=== PATIENT | female | born 1930 | race Two or more races ===

== ENCOUNTER 2018-04-01 19:19 | Inpatient (IN) | payer MEDICARE, MEDICAID ==
--- NOTE | 2018-04-01 19:54 | ED Physician Chart ---
ED Chief Complaint/HPI - Patient Information Date Seen:: 04/01/18 Time Seen:: 19:20 Chief Complaint:: Agitation History of Present Illness:: onset x 2 days of agitation and aggressive behavior; no report of trauma, SIs, H /As, S/T, neck pain, cough, C/P, SOB, Abd. Pain, A/N/V/D/C, fever, chills, or urinary s/s Allergies:: Allergies Allergy/AdvReac Type Severity Reaction Status Date / Time No Known Allergies Allergy Verified 04/01/18 19:31 Vitals:: Vital Signs - 8 hr 04/01/18 19:20 Temp 98.4 F HR 82 RR 18 BP 184/66 O2 Sat % 97 Historian:: Patient, EMS Review:: Nurse's Note Reviewed, Old Chart Reviewed, EMS run form Reviewed ED Review of Systems - Review of Systems General/Constitutional: No fever, No chills, No weight loss, No weakness, No diaphoresis, No edema, No loss of appetite Skin: No skin lesions, No rash, No bruising Head: No headache, No light-headedness Eyes: No loss of vision, No pain, No diplopia ENT: No earache, No nasal drainage, No sore throat, No tinnitus Neck: No neck pain, No swelling, No thyromegaly, No stiffness, No mass noted Cardio Vascular: No chest pain, No palpitations, No PND, No orthopnea, No edema Pulmonary: No SOB, No cough, No sputum, No wheezing GI: No nausea, No vomiting, No diarrhea, No pain, No melena, No hematochezia, No constipation, No hematemesis G/U: No dysuria, No frequency, No hematuria, No nacturia Bronc Breaker: No vaginal discharge, No abnormal vaginal bleed, No contraction Musculoskeletal: No bone or joint pain, No back pain, No muscle pain Endocrine: No polyuria, No polydipsia Psychiatric: Prior psych history, Depression, Anxiety, No suicidal ideation, No homicidal ideation, No auditory hallucination, No visual hallucination Hematopoietic: No bruising, No lymphadenopathy Allergic/Immuno: No urticaria, No angioedema Neurological: No syncope, No focal symptoms, No weakness, No paresthesia, No headache, No seizure, No dizziness, Confusion, No vertigo ED Past Medical History - Past Medical History Obtainable: Yes Past Medical History: HTN, DM, Arthritis, Dementia Family History: Diabetes Melitus, HTN Social History: Non Smoker, No Alcohol, No Drug Use, , Care Facility Surgical History: None Psychiatricy History: Schizophrenia, Dementia Medication: Reviewed Family Medical History - Family Member Mother History Unknown: Yes ED Physical Exam - Physical Examination General/Constitutional: Awake, Well-developed, well-nourished, Alert, No distress, GCS 15, Non-toxic appearing, Ambulatory Head: Atraumatic Eyes: Lids, conjuctiva normal, PERRL, EOMI Skin: Nl inspection, No rash, No skin lesions, No ecchymosis, Well hydrated, No lymphadenopathy ENMT: External ears, nose nl, TM canals nl, Nasal exam nl, Lips, teeth, gums nl , Oropharynx nl, Tonsils nl Neck: Nontender, Full ROM w/o pain, No JVD, No nuchal rigidity, No bruit, No mass, No stridor Respiratory: Nl effort/Exclusion, Clear to Auscultation, No Wheeze/Rhonchi/Rales Cardio Vascular: RRR, No murmur, gallop, rubs, NL S1 S2, Carotid/Femoral/Distal pulses equal bilaterally GI: No tenderness/rebounding/guarding, No organomegaly, No hernia, Normal BS's, Nondistended, No mass/bruits, No McBurney tenderness Other GI comments:: no pulsatile masses : No CVA tenderness Extremities: No tenderness or effusion, Full ROM, normal strength in all extremities, No edema, Normal digits & nails Neuro/Psych: Alert/oriented, DTR's symmetric, Normal sensory exam, Normal motor strength, Judgement/insight normal, Mood normal, Normal gait, No focal deficits Other Neuro/Psych comments:: + Psychomotor Agitation; no SIs; Mood/Affect: Labile Misc: Normal back, No paraspinal tenderness ED Labs/Radiology/EKG Results - Lab Results Comments:: Reviewed - EKG Interpretations EKG Time:: 19:58 Rate & Rhythm: 75; NSR Comments:: LVH; non-specific st-t changes ED Septic Shock - . Is Septic Shock (SBP<90, OR Lactate>4 mmol\L) present?: No - <6hrs of presentation: Vital Signs: Vital Signs - 8 hr 04/01/18 19:20 Temp 98.4 F HR 82 RR 18 BP 184/66 O2 Sat % 97 ED Reassessment (Disposition) - Reassessment Reassessment Condition:: Improved - Diagnosis Diagnosis:: Dx: Agitation; Medical Clearance; Schizo-Affective Disorder; Dementia; Psychosis - Aftercare/Follow up Instructions Aftercare/Follow-Up Instructions:: Counseled pt regarding lab results/diagnosis & need follow up, Counseled pt & family regarding lab results/diagnosis & need follow up - Patient Disposition Discharge/Transfer:: Acute Care w/in this hosp Admitted to:: [facility] Condition at Disposition:: Stable, Improved
[2018-04-01 19:58] LABS: % BASOPHILS 0.9 % (0.0-2.0); % EOSINOPHILS 4.9 % (0.0-5.0); % LYMPHOCYTES 25.4 % (20.0-50.0); % MONOCYTES 7.6 % (2.0-10.0); % NEUTROPHILS 61.2 % (40.0-80.0); EOSINOPHILE ABSOLUTE 0.3 Th/cmm (0.1-0.4); HEMATOCRIT 41.3 % (41.0-60); HEMOGLOBIN 13.6 gm/dL (12-16); LYMPHOCYTE ABSOLUTE 1.4 Th/cmm (1.5-3.0); MEAN CELL VOLUME 94.7 fl (81-100); MEAN CORPUSCULAR HEMOGLOBIN 31.2 pg (27.0-31.0); MEAN CORPUSCULAR HGB CONC 32.9 pg (28.0-36.0); MEAN PLATELET VOLUME 8.5 fl; MONOCYTE ABSOLUTE 0.4 Th/cmm (0.3-1.0); NEUTROPHILE ABSOLUTE 3.4 Th/cmm (1.8-8.0); PLATELET COUNT 172 Th/cmm (150-400); RED BLOOD COUNT 4.36 Mil/cmm (3.80-5.20); RED CELL DISTRIBUTION WIDTH 13.5 % (11.5-20.0); WHITE BLOOD COUNT 5.5 Th/cmm (4.8-10.8)
[2018-04-01 20:17] LABS: ACETAMINOPHEN < 10.0 ug/mL (10.0-30.0); ALB/GLOB RATIO 1.4 (1.0-1.8); ALBUMIN 4.3 gm/dL (3.7-5.3); ALKALINE PHOSPHATASE 65 U/L (34-104); ANION GAP 14.2 (7.0-16.0); BILIRUBIN,TOTAL 0.7 mg/dL (0.3-1.0); BUN - UREA NITROGEN 22 mg/dL (7-25); CALCIUM SERUM 10.2 mg/dL (8.6-10.3); CARBON DIOXIDE 22.3 mEq/L (21.0-31.0); CHLORIDE 104 mEq/L (98-107); CHOLESTEROL 185 mg/dL (<200); CREATININE - SERUM 0.7 mg/dL (0.6-1.2); GLUCOSE 111 mg/dL (70-105); HDL -HIGH DENSITY LIPOPROTEIN 48 mg/dL (23-92); POTASSIUM SERUM 3.5 mEq/L (3.5-5.1); SALICYLATES (ASPIRIN) < 25.0 mg/L (30.0-100.0); SGOT 16 U/L (13-39); SGPT/ALT 8 U/L (7-52); SODIUM SERUM 137 mEq/L (136-145); TOTAL PROTEIN,SERUM 7.4 gm/dL (6.0-8.3); TRIGLYCERIDES 54 mg/dL (<150)
[2018-04-01] MEDS ORDERED: Haloperidol Lactate 5 mg/mL 1mL Vial ONE (21:16)
[2018-04-01] MEDS ORDERED: Haloperidol Lactate 5 mg/mL 1mL Vial IM STA (21:34)
[2018-04-01 22:13] VITALS: BP 150/86
[2018-04-01] MEDS ORDERED: Magnesium Hydroxide (MOM) 30 mL UDC PO PRN (22:13)
[2018-04-02] MEDS ORDERED: Guaifenesin/Dextromethorphan 100mg-10mg/5mL Sugar Free 118mL Bottle PO PRN (03:27)
[2018-04-02] MEDS: Polyvinyl Alcohol Ophth Soln 15 mL Bottle EACH EYE SCH ×2 (08:15→17:31)
[2018-04-02] MEDS: Calcium Carb/Vit D 500 mg/200 U Tab PO SCH ×2 (08:15→17:31)
--- NOTE | 2018-04-02 12:06 | History & Physical ---
ADMIT DATE: 04/01/2018 IDENTIFYING INFORMATION: The patient is an 87-year-old female. CHIEF COMPLAINT: No answer. HISTORY OF PRESENT ILLNESS: The patient was admitted because of agitation and psychosis. The patient herself was a very poor historian. She was unable to participate in meaningful conversation. Apparently yesterday, she was extremely agitated, had to be given emergency medication. So today, she is more on the sedated side. I called her daughter, Lucrecia at [phone] to get more information. However, she left her message with my number. She was not available. PAST PSYCHIATRIC HISTORY: Psychosis. The patient on paliperidone. MEDICAL HISTORY: The patient is unable to give any information. ALLERGIES: The patient has no known drug allergies. MEDICATIONS: She is on paliperidone, she is demented. She is on Aricept 10 mg at bedtime, guaifenesin every 6 hours, Lasix 20 mg daily, benazepril for hypertension 5 mg twice a day, yesterday she was given Haldol, Ativan by Dr. Steven Casey. FAMILY AND SOCIAL HISTORY: No information is available as the patient is unable to give information regarding family history. MENTAL STATUS EXAMINATION: The patient is appropriately dressed, not well groomed. She was somewhat sedated, unable to participate in a meaningful conversation or make safe plan for self-care. She apparently was agitated, had to be medicated, continues to have poor insight. Unable to make safe plan for self-care, unpredictable, impulsive, needing redirection, demented, confused, unable to answer any question regarding orientation, hallucinations, sleep and appetite. Her insight and judgment is impaired. IMPRESSION: AXIS I: Psychosis, not otherwise specified, dementia. MEDICAL DIAGNOSIS: As per medical doctor. PLAN: The patient will be started back on medication. We will do group therapy, milieu therapy, and individual therapy. ESTIMATED LENGTH OF STAY: 3-7 days. DISCHARGE CRITERIA: Decreasing psychosis, agitation, after discharge ____. JOB# [id number]
--- NOTE | 2018-04-02 22:58 | History & Physical ---
ADMIT DATE: 04/02/2018 CHIEF COMPLAINT: Agitation. HISTORY OF PRESENT ILLNESS: An 87-year-old female presents from assisted after having increased agitation and yelling. The patient was evaluated in the Emergency Room, medically cleared and sent for further psychiatric evaluation. The patient is a poor historian. History is taken from records. The patient appears in no distress or pain. PAST MEDICAL HISTORY: The patient has history of dementia, diabetes mellitus, hypertension, depression, gout, hyperlipidemia, and osteoporosis. MEDICATIONS: The patient takes alendronate, allopurinol, Aricept, benazepril, Lasix, paliperidone, simvastatin. ALLERGIES: The patient has no known drug allergies. SOCIAL HISTORY: No tobacco, alcohol, or illicit drug use. The patient is a resident of a assisted. FAMILY HISTORY: Noncontributory. REVIEW OF SYSTEMS: IMMUNOLOGIC: No recurrent infection. CARDIOVASCULAR: No heart disease. The patient does have hypertension. GASTROINTESTINAL: No nausea, vomiting, or diarrhea. ENDOCRINE: The patient has no known diabetes or thyroid disorder. NEUROLOGIC: The patient has dementia. No seizure or stroke. HEMATOLOGIC: No bleeding or clotting disorder. PHYSICAL EXAMINATION: GENERAL: The patient is resting comfortably, appears in no distress. VITAL SIGNS: Temperature 97.8, pulse 68, respirations 20, blood pressure 135/56. HEENT: Pupils equally round, anicteric sclerae. NECK: Supple. No JVD, mass, or bruit. LUNGS: Clear to auscultation. HEART: S1, S2, regular rate and rhythm. ABDOMEN: Soft, nontender, positive bowel sounds. EXTREMITIES: No clubbing, cyanosis, or edema. NEUROLOGIC: Does not cooperate with following commands. IMPRESSION: 1. Mental health disorder. 2. Depression. 3. Hypertension. 4. Diabetes mellitus. 5. Gout. 6. Osteoporosis. 7. Hyperlipidemia. PLAN: The patient has been admitted to Geropsych Unit. We will continue patient's usual medications and continue to monitor vitals. The patient has no apparent active medical problems. We will continue to monitor while in facility. JOB# [id number]
[2018-04-03] MEDS: Polyvinyl Alcohol Ophth Soln 15 mL Bottle EACH EYE SCH ×3 (08:56→16:56)
[2018-04-03] MEDS: Calcium Carb/Vit D 500 mg/200 U Tab PO SCH ×3 (08:56→16:23)
[2018-04-03] MEDS ORDERED: PALIPERIDONE 1.5 MG PO SCH (09:00)
--- NOTE | 2018-04-03 20:35 | General Progress Note ---
Subjective - Review of Systems Service Date: 04/03/18 Subjective: resting comfortably no complaints Objective - Results Result Diagrams: 04/01/18 19:45 04/01/18 19:45 Recent Labs: Laboratory Last Values WBC 5.5 Th/cmm (4.8-10.8) 04/01/18 19:45 RBC 4.36 Mil/cmm (3.80-5.20) 04/01/18 19:45 Hgb 13.6 gm/dL (12-16) 04/01/18 19:45 Hct 41.3 % (41.0-60) 04/01/18 19:45 MCV 94.7 fl (81-100) 04/01/18 19:45 MCH 31.2 pg (27.0-31.0) H 04/01/18 19:45 MCHC Differential 32.9 pg (28.0-36.0) 04/01/18 19:45 RDW 13.5 % (11.5-20.0) 04/01/18 19:45 Plt Count 172 Th/cmm (150-400) 04/01/18 19:45 MPV 8.5 fl 04/01/18 19:45 Neutrophils % 61.2 % (40.0-80.0) 04/01/18 19:45 Lymphocytes % 25.4 % (20.0-50.0) 04/01/18 19:45 Monocytes % 7.6 % (2.0-10.0) 04/01/18 19:45 Eosinophils % 4.9 % (0.0-5.0) 04/01/18 19:45 Basophils % 0.9 % (0.0-2.0) 04/01/18 19:45 Sodium 137 mEq/L (136-145) 04/01/18 19:45 Potassium 3.5 mEq/L (3.5-5.1) 04/01/18 19:45 Chloride 104 mEq/L (98-107) 04/01/18 19:45 Carbon Dioxide 22.3 mEq/L (21.0-31.0) 04/01/18 19:45 Anion Gap 14.2 (7.0-16.0) 04/01/18 19:45 BUN 22 mg/dL (7-25) 04/01/18 19:45 Creatinine 0.7 mg/dL (0.6-1.2) 04/01/18 19:45 Est GFR ( Amer) TNP 04/01/18 19:45 Est GFR (Non-Af Amer) TNP 04/01/18 19:45 BUN/Creatinine Ratio 31.4 04/01/18 19:45 Glucose 111 mg/dL (70-105) H 04/01/18 19:45 Calcium 10.2 mg/dL (8.6-10.3) 04/01/18 19:45 Total Bilirubin 0.7 mg/dL (0.3-1.0) 04/01/18 19:45 AST 16 U/L (13-39) 04/01/18 19:45 ALT 8 U/L (7-52) 04/01/18 19:45 Alkaline Phosphatase 65 U/L (34-104) 04/01/18 19:45 Troponin I 0.14 ng/mL (0.01-0.05) H* 04/01/18 19:45 Total Protein 7.4 gm/dL (6.0-8.3) 04/01/18 19:45 Albumin 4.3 gm/dL (3.7-5.3) 04/01/18 19:45 Globulin 3.1 gm/dL 04/01/18 19:45 Albumin/Globulin Ratio 1.4 (1.0-1.8) 04/01/18 19:45 Triglycerides 54 mg/dL (<150) 04/01/18 19:45 Cholesterol 185 mg/dL (<200) 04/01/18 19:45 LDL Cholesterol Direct 121 mg/dL (75-193) 04/01/18 19:45 HDL Cholesterol 48 mg/dL (23-92) 04/01/18 19:45 TSH 0.23 uIU/ml (0.34-5.60) L 04/01/18 19:45 Salicylates < 25.0 mg/L (30.0-100.0) L 04/01/18 19:45 Acetaminophen < 10.0 ug/mL (10.0-30.0) L 04/01/18 19:45 Ethyl Alcohol < 10 mg/dL (0-10) 04/01/18 19:45 - Physical Exam Vitals and I&O: Vital Signs Temp 97.9 F 04/03/18 02:47 Pulse 64 04/03/18 02:47 Resp 18 04/03/18 02:47 BP 130/62 04/03/18 02:47 Pulse Ox 98 04/03/18 02:47 Intake & Output 04/03/18 04/03/18 04/04/18 06:59 18:59 06:59 Intake Total 500 1200 Balance 500 1200 Intake: Oral 500 1200 Other: # Voids 4 # Bowel Movements 0 1 Active Medications: Current Medications Acetaminophen (Tylenol) 650 mg PO Q6HR PRN PRN Reason: Pain or Fever >101 Stop: 06/01/18 03:26 Alendronate Sodium (Fosamax) 70 mg PO Q7D [facility] Stop: 06/02/18 06:29 Last Admin: 04/03/18 07:02 Dose: 70 mg Allopurinol (Zyloprim) 300 mg PO DAILY [facility] Stop: 06/01/18 08:59 Last Admin: 04/03/18 09:00 Dose: 300 mg Aripiprazole (Abilify) 2.5 mg PO DAILY [facility]; Protocol Stop: 06/02/18 16:59 Last Admin: 04/03/18 16:54 Dose: 2.5 mg Artificial Tears (Artificial Tears Ophth Soln) 1 drop EACH EYE BID [facility] Stop: 06/01/18 08:59 Last Admin: 04/03/18 16:56 Dose: 1 drop Aspirin (Ecotrin) 81 mg PO DAILY [facility] Stop: 06/01/18 08:59 Last Admin: 04/03/18 09:06 Dose: 81 mg Benazepril HCl (Lotensin) 5 mg PO BID [facility] Stop: 06/01/18 08:59 Last Admin: 04/03/18 16:55 Dose: Not Given Calcium/Vitamin D (Oscal W/Vitamin D) 1 tab PO BID [facility] Stop: 06/01/18 08:59 Last Admin: 04/03/18 16:23 Dose: 1 tab Docusate Sodium (Colace) 100 mg PO BID [facility] Stop: 06/01/18 08:59 Last Admin: 04/03/18 16:23 Dose: 100 mg Donepezil HCl (Aricept) 10 mg PO HS [facility] Stop: 06/01/18 20:59 Last Admin: 04/02/18 21:39 Dose: 10 mg Furosemide (Lasix) 20 mg PO DAILY [facility] Stop: 06/01/18 08:59 Last Admin: 04/03/18 08:56 Dose: Not Given Guaifenesin/Dextromethorphan (Diabetic Tussin Dm Sugar Free) 5 ml PO Q6H PRN PRN Reason: Cough Stop: 06/01/18 03:26 Lorazepam (Ativan) 0.5 mg PO Q4HR PRN; Protocol PRN Reason: Anxiety Stop: 05/01/18 22:12 Magnesium Hydroxide (Milk Of Magnesia) 30 ml PO HS PRN PRN Reason: Constipation Methimazole (Tapazole) 5 mg PO QDAC [facility] Stop: 06/01/18 07:29 Last Admin: 04/03/18 07:02 Dose: 5 mg Miscellaneous (Paliperidone [Paliperidone Er]) 1.5 mg PO DAILY [facility] Stop: 06/02/18 08:59 Simvastatin (Zocor) 20 mg PO HS [facility]; Protocol Stop: 06/01/18 20:59 Last Admin: 04/02/18 21:39 Dose: 20 mg General: No acute distress HEENT: Atraumatic, PERRLA Neck: Supple, JVD, Thyromegaly Cardiovascular: Regular rate, Normal S1, Normal S2 Lungs: Clear to auscultation Abdomen: Bowel sounds, Soft Assessment/Plan - Assessment Assessment: depression DM HTN hyperlipidemia - Plan Plan: continue current treatment
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
[2018-04-04] MEDS: Polyvinyl Alcohol Ophth Soln 15 mL Bottle EACH EYE SCH ×2 (08:34→18:22)
[2018-04-04] MEDS: Calcium Carb/Vit D 500 mg/200 U Tab PO SCH ×2 (08:39→18:22)
--- NOTE | 2018-04-04 11:01 | Progress Notes ---
DATE: 04/04/2018 Dr. Vasquez covering for Dr. Ratliff. SUBJECTIVE: Chart reviewed and the patient interviewed. Also discussed the patient's condition with the staff and reviewed records and labs. The patient is still confused and still have episodes of agitation and irritability, but seems to be less than before. Also, easier to redirect her. The patient also is compliant with taking her medications with no side effects of medications. ASSESSMENT: The patient is less agitated and less psychotic. TREATMENT PLAN: Continue to monitor her behavior and her condition closely. Also, continue adjusting psychotropic medications and follow up. JOB# [id number]
--- NOTE | 2018-04-04 13:44 | General Progress Note ---
Subjective - Review of Systems Service Date: 04/04/18 Subjective: resting comfortably no complaints Objective - Results Result Diagrams: 04/01/18 19:45 04/01/18 19:45 Recent Labs: Laboratory Last Values WBC 5.5 Th/cmm (4.8-10.8) 04/01/18 19:45 RBC 4.36 Mil/cmm (3.80-5.20) 04/01/18 19:45 Hgb 13.6 gm/dL (12-16) 04/01/18 19:45 Hct 41.3 % (41.0-60) 04/01/18 19:45 MCV 94.7 fl (81-100) 04/01/18 19:45 MCH 31.2 pg (27.0-31.0) H 04/01/18 19:45 MCHC Differential 32.9 pg (28.0-36.0) 04/01/18 19:45 RDW 13.5 % (11.5-20.0) 04/01/18 19:45 Plt Count 172 Th/cmm (150-400) 04/01/18 19:45 MPV 8.5 fl 04/01/18 19:45 Neutrophils % 61.2 % (40.0-80.0) 04/01/18 19:45 Lymphocytes % 25.4 % (20.0-50.0) 04/01/18 19:45 Monocytes % 7.6 % (2.0-10.0) 04/01/18 19:45 Eosinophils % 4.9 % (0.0-5.0) 04/01/18 19:45 Basophils % 0.9 % (0.0-2.0) 04/01/18 19:45 Sodium 137 mEq/L (136-145) 04/01/18 19:45 Potassium 3.5 mEq/L (3.5-5.1) 04/01/18 19:45 Chloride 104 mEq/L (98-107) 04/01/18 19:45 Carbon Dioxide 22.3 mEq/L (21.0-31.0) 04/01/18 19:45 Anion Gap 14.2 (7.0-16.0) 04/01/18 19:45 BUN 22 mg/dL (7-25) 04/01/18 19:45 Creatinine 0.7 mg/dL (0.6-1.2) 04/01/18 19:45 Est GFR ( Amer) TNP 04/01/18 19:45 Est GFR (Non-Af Amer) TNP 04/01/18 19:45 BUN/Creatinine Ratio 31.4 04/01/18 19:45 Glucose 111 mg/dL (70-105) H 04/01/18 19:45 Calcium 10.2 mg/dL (8.6-10.3) 04/01/18 19:45 Total Bilirubin 0.7 mg/dL (0.3-1.0) 04/01/18 19:45 AST 16 U/L (13-39) 04/01/18 19:45 ALT 8 U/L (7-52) 04/01/18 19:45 Alkaline Phosphatase 65 U/L (34-104) 04/01/18 19:45 Troponin I 0.14 ng/mL (0.01-0.05) H* 04/01/18 19:45 Total Protein 7.4 gm/dL (6.0-8.3) 04/01/18 19:45 Albumin 4.3 gm/dL (3.7-5.3) 04/01/18 19:45 Globulin 3.1 gm/dL 04/01/18 19:45 Albumin/Globulin Ratio 1.4 (1.0-1.8) 04/01/18 19:45 Triglycerides 54 mg/dL (<150) 04/01/18 19:45 Cholesterol 185 mg/dL (<200) 04/01/18 19:45 LDL Cholesterol Direct 121 mg/dL (75-193) 04/01/18 19:45 HDL Cholesterol 48 mg/dL (23-92) 04/01/18 19:45 TSH 0.23 uIU/ml (0.34-5.60) L 04/01/18 19:45 Salicylates < 25.0 mg/L (30.0-100.0) L 04/01/18 19:45 Acetaminophen < 10.0 ug/mL (10.0-30.0) L 04/01/18 19:45 Ethyl Alcohol < 10 mg/dL (0-10) 04/01/18 19:45 - Physical Exam Vitals and I&O: Vital Signs Temp 97.6 F 04/04/18 06:45 Pulse 74 04/04/18 08:37 Resp 18 04/04/18 06:45 BP 138/67 04/04/18 08:40 Pulse Ox 94 04/04/18 06:45 Intake & Output 04/03/18 04/04/18 04/04/18 18:59 06:59 18:59 Intake Total 1200 Balance 1200 Intake: Oral 1200 Other: # Bowel Movements 1 Active Medications: Current Medications Acetaminophen (Tylenol) 650 mg PO Q6HR PRN PRN Reason: Pain or Fever >101 Stop: 06/01/18 03:26 Alendronate Sodium (Fosamax) 70 mg PO Q7D [facility] Stop: 06/02/18 06:29 Last Admin: 04/03/18 07:02 Dose: 70 mg Allopurinol (Zyloprim) 300 mg PO DAILY [facility] Stop: 06/01/18 08:59 Last Admin: 04/04/18 08:35 Dose: 300 mg Aripiprazole (Abilify) 2.5 mg PO DAILY [facility]; Protocol Stop: 06/02/18 16:59 Last Admin: 04/04/18 08:35 Dose: 2.5 mg Artificial Tears (Artificial Tears Ophth Soln) 1 drop EACH EYE BID [facility] Stop: 06/01/18 08:59 Last Admin: 04/04/18 08:34 Dose: 1 drop Aspirin (Ecotrin) 81 mg PO DAILY [facility] Stop: 06/01/18 08:59 Last Admin: 04/04/18 08:35 Dose: 81 mg Benazepril HCl (Lotensin) 5 mg PO BID [facility] Stop: 06/01/18 08:59 Last Admin: 04/04/18 08:37 Dose: 2.5 mg Calcium/Vitamin D (Oscal W/Vitamin D) 1 tab PO BID [facility] Stop: 06/01/18 08:59 Last Admin: 04/04/18 08:39 Dose: 1 tab Docusate Sodium (Colace) 100 mg PO BID [facility] Stop: 06/01/18 08:59 Last Admin: 04/04/18 08:34 Dose: 100 mg Donepezil HCl (Aricept) 10 mg PO HS [facility] Stop: 06/01/18 20:59 Last Admin: 04/03/18 21:07 Dose: 10 mg Furosemide (Lasix) 20 mg PO DAILY [facility] Stop: 06/01/18 08:59 Last Admin: 04/04/18 08:40 Dose: 20 mg Guaifenesin/Dextromethorphan (Diabetic Tussin Dm Sugar Free) 5 ml PO Q6H PRN PRN Reason: Cough Stop: 06/01/18 03:26 Lorazepam (Ativan) 0.5 mg PO Q4HR PRN; Protocol PRN Reason: Anxiety Stop: 05/01/18 22:12 Magnesium Hydroxide (Milk Of Magnesia) 30 ml PO HS PRN PRN Reason: Constipation Methimazole (Tapazole) 5 mg PO QDAC [facility] Stop: 06/01/18 07:29 Last Admin: 04/04/18 06:51 Dose: 5 mg Miscellaneous (Paliperidone [Paliperidone Er]) 1.5 mg PO DAILY [facility] Stop: 06/02/18 08:59 Simvastatin (Zocor) 20 mg PO HS [facility]; Protocol Stop: 06/01/18 20:59 Last Admin: 04/03/18 21:07 Dose: 20 mg General: No acute distress HEENT: Atraumatic, PERRLA Neck: Supple, JVD, Thyromegaly Cardiovascular: Regular rate, Normal S1, Normal S2 Lungs: Clear to auscultation Abdomen: Bowel sounds, Soft Assessment/Plan - Assessment Assessment: depression DM HTN hyperlipidemia - Plan Plan: continue current treatment
[2018-04-05] MEDS: Calcium Carb/Vit D 500 mg/200 U Tab PO SCH ×2 (08:29→16:40)
[2018-04-05] MEDS: Polyvinyl Alcohol Ophth Soln 15 mL Bottle EACH EYE SCH ×2 (08:38→16:41)
--- NOTE | 2018-04-05 17:29 | General Progress Note ---
Subjective - Review of Systems Service Date: 04/05/18 Subjective: resting comfortably no complaints Objective - Results Result Diagrams: 04/01/18 19:45 04/01/18 19:45 Recent Labs: Laboratory Last Values WBC 5.5 Th/cmm (4.8-10.8) 04/01/18 19:45 RBC 4.36 Mil/cmm (3.80-5.20) 04/01/18 19:45 Hgb 13.6 gm/dL (12-16) 04/01/18 19:45 Hct 41.3 % (41.0-60) 04/01/18 19:45 MCV 94.7 fl (81-100) 04/01/18 19:45 MCH 31.2 pg (27.0-31.0) H 04/01/18 19:45 MCHC Differential 32.9 pg (28.0-36.0) 04/01/18 19:45 RDW 13.5 % (11.5-20.0) 04/01/18 19:45 Plt Count 172 Th/cmm (150-400) 04/01/18 19:45 MPV 8.5 fl 04/01/18 19:45 Neutrophils % 61.2 % (40.0-80.0) 04/01/18 19:45 Lymphocytes % 25.4 % (20.0-50.0) 04/01/18 19:45 Monocytes % 7.6 % (2.0-10.0) 04/01/18 19:45 Eosinophils % 4.9 % (0.0-5.0) 04/01/18 19:45 Basophils % 0.9 % (0.0-2.0) 04/01/18 19:45 Sodium 137 mEq/L (136-145) 04/01/18 19:45 Potassium 3.5 mEq/L (3.5-5.1) 04/01/18 19:45 Chloride 104 mEq/L (98-107) 04/01/18 19:45 Carbon Dioxide 22.3 mEq/L (21.0-31.0) 04/01/18 19:45 Anion Gap 14.2 (7.0-16.0) 04/01/18 19:45 BUN 22 mg/dL (7-25) 04/01/18 19:45 Creatinine 0.7 mg/dL (0.6-1.2) 04/01/18 19:45 Est GFR ( Amer) TNP 04/01/18 19:45 Est GFR (Non-Af Amer) TNP 04/01/18 19:45 BUN/Creatinine Ratio 31.4 04/01/18 19:45 Glucose 111 mg/dL (70-105) H 04/01/18 19:45 Calcium 10.2 mg/dL (8.6-10.3) 04/01/18 19:45 Total Bilirubin 0.7 mg/dL (0.3-1.0) 04/01/18 19:45 AST 16 U/L (13-39) 04/01/18 19:45 ALT 8 U/L (7-52) 04/01/18 19:45 Alkaline Phosphatase 65 U/L (34-104) 04/01/18 19:45 Troponin I 0.14 ng/mL (0.01-0.05) H* 04/01/18 19:45 Total Protein 7.4 gm/dL (6.0-8.3) 04/01/18 19:45 Albumin 4.3 gm/dL (3.7-5.3) 04/01/18 19:45 Globulin 3.1 gm/dL 04/01/18 19:45 Albumin/Globulin Ratio 1.4 (1.0-1.8) 04/01/18 19:45 Triglycerides 54 mg/dL (<150) 04/01/18 19:45 Cholesterol 185 mg/dL (<200) 04/01/18 19:45 LDL Cholesterol Direct 121 mg/dL (75-193) 04/01/18 19:45 HDL Cholesterol 48 mg/dL (23-92) 04/01/18 19:45 TSH 0.23 uIU/ml (0.34-5.60) L 04/01/18 19:45 Salicylates < 25.0 mg/L (30.0-100.0) L 04/01/18 19:45 Acetaminophen < 10.0 ug/mL (10.0-30.0) L 04/01/18 19:45 Ethyl Alcohol < 10 mg/dL (0-10) 04/01/18 19:45 - Physical Exam Vitals and I&O: Vital Signs Temp 97.9 F 04/05/18 14:00 Pulse 64 04/05/18 16:35 Resp 20 04/05/18 14:00 BP 141/61 04/05/18 16:35 Pulse Ox 95 04/05/18 14:00 Intake & Output 04/04/18 04/05/18 04/05/18 18:59 06:59 18:59 Intake Total 650 Balance 650 Intake: Oral 650 Other: # Voids 3 Active Medications: Current Medications Acetaminophen (Tylenol) 650 mg PO Q6HR PRN PRN Reason: Pain or Fever >101 Stop: 06/01/18 03:26 Alendronate Sodium (Fosamax) 70 mg PO Q7D [facility] Stop: 06/02/18 06:29 Last Admin: 04/03/18 07:02 Dose: 70 mg Allopurinol (Zyloprim) 300 mg PO DAILY [facility] Stop: 06/01/18 08:59 Last Admin: 04/05/18 08:28 Dose: 300 mg Aripiprazole (Abilify) 2.5 mg PO DAILY [facility]; Protocol Stop: 06/02/18 16:59 Last Admin: 04/05/18 08:28 Dose: 2.5 mg Artificial Tears (Artificial Tears Ophth Soln) 1 drop EACH EYE BID [facility] Stop: 06/01/18 08:59 Last Admin: 04/05/18 16:41 Dose: 1 drop Aspirin (Ecotrin) 81 mg PO DAILY [facility] Stop: 06/01/18 08:59 Last Admin: 04/05/18 08:40 Dose: 81 mg Benazepril HCl (Lotensin) 5 mg PO BID [facility] Stop: 06/01/18 08:59 Last Admin: 04/05/18 16:35 Dose: 5 mg Calcium/Vitamin D (Oscal W/Vitamin D) 1 tab PO BID [facility] Stop: 06/01/18 08:59 Last Admin: 04/05/18 16:40 Dose: 1 tab Docusate Sodium (Colace) 100 mg PO BID [facility] Stop: 06/01/18 08:59 Last Admin: 04/05/18 16:40 Dose: 100 mg Donepezil HCl (Aricept) 10 mg PO HS [facility] Stop: 06/01/18 20:59 Last Admin: 04/04/18 21:22 Dose: 10 mg Furosemide (Lasix) 20 mg PO DAILY [facility] Stop: 06/01/18 08:59 Last Admin: 04/05/18 11:29 Dose: Not Given Guaifenesin/Dextromethorphan (Diabetic Tussin Dm Sugar Free) 5 ml PO Q6H PRN PRN Reason: Cough Stop: 06/01/18 03:26 Lorazepam (Ativan) 0.5 mg PO Q4HR PRN; Protocol PRN Reason: Anxiety Stop: 05/01/18 22:12 Last Admin: 04/04/18 21:21 Dose: 0.5 mg Magnesium Hydroxide (Milk Of Magnesia) 30 ml PO HS PRN PRN Reason: Constipation Methimazole (Tapazole) 5 mg PO QDAC [facility] Stop: 06/01/18 07:29 Last Admin: 04/05/18 06:33 Dose: 5 mg Miscellaneous (Paliperidone [Paliperidone Er]) 1.5 mg PO DAILY [facility] Stop: 06/02/18 08:59 Simvastatin (Zocor) 20 mg PO HS [facility]; Protocol Stop: 06/01/18 20:59 Last Admin: 04/04/18 21:22 Dose: 20 mg General: No acute distress HEENT: Atraumatic, PERRLA Neck: Supple, JVD, Thyromegaly Cardiovascular: Regular rate, Normal S1, Normal S2 Lungs: Clear to auscultation Abdomen: Bowel sounds, Soft Assessment/Plan - Assessment Assessment: depression DM HTN hyperlipidemia - Plan Plan: continue current treatment
--- NOTE | 2018-04-06 02:06 | Progress Notes ---
DATE: 04/05/2018 SUBJECTIVE: Chart reviewed and the patient interviewed. Also, discussed the patient's condition with the staff and reviewed records and labs. The patient is still restless and she is still aggressive. The patient also still has difficulty with following directions. Also, she has unsteady gait. Otherwise, the patient is compliant with taking her medications with no side effects of medications. ASSESSMENT: The patient is less agitated and less aggressive ____ behavior and continue adjusting psychotropic medications and follow up closely. [facility]# [id number]
[2018-04-06] MEDS: Calcium Carb/Vit D 500 mg/200 U Tab PO SCH ×2 (09:52→17:56)
[2018-04-06] MEDS: Polyvinyl Alcohol Ophth Soln 15 mL Bottle EACH EYE SCH ×2 (09:52→17:58)
--- NOTE | 2018-04-06 17:21 | General Progress Note ---
Subjective - Review of Systems Service Date: 04/06/18 Subjective: resting comfortably no complaints Objective - Results Result Diagrams: 04/01/18 19:45 04/01/18 19:45 Recent Labs: Laboratory Last Values WBC 5.5 Th/cmm (4.8-10.8) 04/01/18 19:45 RBC 4.36 Mil/cmm (3.80-5.20) 04/01/18 19:45 Hgb 13.6 gm/dL (12-16) 04/01/18 19:45 Hct 41.3 % (41.0-60) 04/01/18 19:45 MCV 94.7 fl (81-100) 04/01/18 19:45 MCH 31.2 pg (27.0-31.0) H 04/01/18 19:45 MCHC Differential 32.9 pg (28.0-36.0) 04/01/18 19:45 RDW 13.5 % (11.5-20.0) 04/01/18 19:45 Plt Count 172 Th/cmm (150-400) 04/01/18 19:45 MPV 8.5 fl 04/01/18 19:45 Neutrophils % 61.2 % (40.0-80.0) 04/01/18 19:45 Lymphocytes % 25.4 % (20.0-50.0) 04/01/18 19:45 Monocytes % 7.6 % (2.0-10.0) 04/01/18 19:45 Eosinophils % 4.9 % (0.0-5.0) 04/01/18 19:45 Basophils % 0.9 % (0.0-2.0) 04/01/18 19:45 Sodium 137 mEq/L (136-145) 04/01/18 19:45 Potassium 3.5 mEq/L (3.5-5.1) 04/01/18 19:45 Chloride 104 mEq/L (98-107) 04/01/18 19:45 Carbon Dioxide 22.3 mEq/L (21.0-31.0) 04/01/18 19:45 Anion Gap 14.2 (7.0-16.0) 04/01/18 19:45 BUN 22 mg/dL (7-25) 04/01/18 19:45 Creatinine 0.7 mg/dL (0.6-1.2) 04/01/18 19:45 Est GFR ( Amer) TNP 04/01/18 19:45 Est GFR (Non-Af Amer) TNP 04/01/18 19:45 BUN/Creatinine Ratio 31.4 04/01/18 19:45 Glucose 111 mg/dL (70-105) H 04/01/18 19:45 Calcium 10.2 mg/dL (8.6-10.3) 04/01/18 19:45 Total Bilirubin 0.7 mg/dL (0.3-1.0) 04/01/18 19:45 AST 16 U/L (13-39) 04/01/18 19:45 ALT 8 U/L (7-52) 04/01/18 19:45 Alkaline Phosphatase 65 U/L (34-104) 04/01/18 19:45 Troponin I 0.14 ng/mL (0.01-0.05) H* 04/01/18 19:45 Total Protein 7.4 gm/dL (6.0-8.3) 04/01/18 19:45 Albumin 4.3 gm/dL (3.7-5.3) 04/01/18 19:45 Globulin 3.1 gm/dL 04/01/18 19:45 Albumin/Globulin Ratio 1.4 (1.0-1.8) 04/01/18 19:45 Triglycerides 54 mg/dL (<150) 04/01/18 19:45 Cholesterol 185 mg/dL (<200) 04/01/18 19:45 LDL Cholesterol Direct 121 mg/dL (75-193) 04/01/18 19:45 HDL Cholesterol 48 mg/dL (23-92) 04/01/18 19:45 TSH 0.23 uIU/ml (0.34-5.60) L 04/01/18 19:45 Salicylates < 25.0 mg/L (30.0-100.0) L 04/01/18 19:45 Acetaminophen < 10.0 ug/mL (10.0-30.0) L 04/01/18 19:45 Ethyl Alcohol < 10 mg/dL (0-10) 04/01/18 19:45 - Physical Exam Vitals and I&O: Vital Signs Temp 99.4 F 04/06/18 14:00 Pulse 96 04/06/18 14:00 Resp 20 04/06/18 14:00 BP 164/83 04/06/18 14:00 Pulse Ox 98 04/06/18 14:00 Intake & Output 04/05/18 04/06/18 04/06/18 18:59 06:59 18:59 Intake Total 240 Balance 240 Weight (lbs) 78.018 kg Intake: Oral 240 Other: # Voids 3 3 # Bowel Movements 0 Weight Source Bedscale Active Medications: Current Medications Acetaminophen (Tylenol) 650 mg PO Q6HR PRN PRN Reason: Pain or Fever >101 Stop: 06/01/18 03:26 Alendronate Sodium (Fosamax) 70 mg PO Q7D [facility] Stop: 06/02/18 06:29 Last Admin: 04/03/18 07:02 Dose: 70 mg Allopurinol (Zyloprim) 300 mg PO DAILY [facility] Stop: 06/01/18 08:59 Last Admin: 04/06/18 09:51 Dose: 300 mg Aripiprazole (Abilify) 2.5 mg PO DAILY [facility]; Protocol Stop: 06/02/18 16:59 Last Admin: 04/06/18 09:50 Dose: 2.5 mg Artificial Tears (Artificial Tears Ophth Soln) 1 drop EACH EYE BID [facility] Stop: 06/01/18 08:59 Last Admin: 04/06/18 09:52 Dose: 1 drop Aspirin (Ecotrin) 81 mg PO DAILY [facility] Stop: 06/01/18 08:59 Last Admin: 04/06/18 09:50 Dose: 81 mg Benazepril HCl (Lotensin) 5 mg PO BID [facility] Stop: 06/01/18 08:59 Last Admin: 04/06/18 09:50 Dose: 5 mg Calcium/Vitamin D (Oscal W/Vitamin D) 1 tab PO BID [facility] Stop: 06/01/18 08:59 Last Admin: 04/06/18 09:52 Dose: 1 tab Docusate Sodium (Colace) 100 mg PO BID [facility] Stop: 06/01/18 08:59 Last Admin: 04/06/18 09:49 Dose: 100 mg Donepezil HCl (Aricept) 10 mg PO HS [facility] Stop: 06/01/18 20:59 Last Admin: 04/05/18 20:16 Dose: 10 mg Furosemide (Lasix) 20 mg PO DAILY [facility] Stop: 06/01/18 08:59 Last Admin: 04/06/18 09:52 Dose: 20 mg Guaifenesin/Dextromethorphan (Diabetic Tussin Dm Sugar Free) 5 ml PO Q6H PRN PRN Reason: Cough Stop: 06/01/18 03:26 Lorazepam (Ativan) 0.5 mg PO Q4HR PRN; Protocol PRN Reason: Anxiety Stop: 05/01/18 22:12 Last Admin: 04/04/18 21:21 Dose: 0.5 mg Magnesium Hydroxide (Milk Of Magnesia) 30 ml PO HS PRN PRN Reason: Constipation Methimazole (Tapazole) 5 mg PO QDAC [facility] Stop: 06/01/18 07:29 Last Admin: 04/06/18 06:47 Dose: 5 mg Miscellaneous (Paliperidone [Paliperidone Er]) 1.5 mg PO DAILY [facility] Stop: 06/02/18 08:59 Simvastatin (Zocor) 20 mg PO HS [facility]; Protocol Stop: 06/01/18 20:59 Last Admin: 04/05/18 20:16 Dose: 20 mg General: No acute distress HEENT: Atraumatic, PERRLA Neck: Supple, JVD, Thyromegaly Cardiovascular: Regular rate, Normal S1, Normal S2 Lungs: Clear to auscultation Abdomen: Bowel sounds, Soft Assessment/Plan - Assessment Assessment: depression DM HTN hyperlipidemia - Plan Plan: continue current treatment Nutritional Asmnt/Malnutr-PDOC - Dietary Evaluation Malnutrition Findings (Please click <Entered> for more info): Nutritional Asmnt/Malnutrition Start: 04/06/18 14: 17 Text: Status: Complete Freq: Protocol: Document 04/06/18 14:18 GERMAINE (Rec: 04/06/18 14:39 GERMAINE DELAROSA) Nutritional Asmnt/Malnutrition Patient General Information Nutritional Screening Moderate Risk Diagnosis psychosis Pertinent Medical Hx/Surgical Hx HTN, DM, arthritis, dementia, depression, gout, hyperlipidemia, osteoporosis Subjective Information Pt was eating lunch in room at time of visit. Pt provided food preferences. Nursing noted intake: 50-75% average. Recorded wt has not changed from 04/01-04/05. Current Diet Order/ Nutrition Support CCHO 60 gm, low sodium Pertinent Medications oscal w/ vit D, colace, lasix, MOM Pertinent Labs 04/01: glucose 111 Nutritional Hx/Data Height 1.75 m Height (Calculated Centimeters) 175.3 Current Weight (lbs) 78.018 kg Weight (Calculated Kilograms) 78.0 Weight (Calculated Grams) 57590.9 [place] Body Weight 145 Body Mass Index (BMI) 25.4 Weight Status Overweight GI Symptoms GI Symptoms None Last BM 04/03 Difficult in: None Food Allergies No Skin Integrity/Comment: intact Current %PO Fair (50-74%) Estimated Nutritional Goals BEE in Kcals: Using Current wt Calories/Kcals/Kg 23-27 Kcals Calculated 1664-2290 Protein: Using Current wt Protein g/k.8-1 Protein Calculated 63-78 g Fluid: ml 6655-0064 Nutritional Problem No current Nutrition Prob Problem no nutrition diagnosis at this time Malnutrition Alert Is there a minimum of two criteria No selected? Query Text:Check all the applicable criteria. A minimum of two criteria are recommended for diagnosis of either severe or non-severe malnutrition. Malnutrition Related to Morbid Obesity Malnutrition related to morbid obesity No Intervention/Recommendation Comments 1. Continue with CCHO 60 gm, low sodium diet as ordered. Updated diet profile. 2. Encourage pt to eat and monitor PO intake, wt, labs and skin integrity 3. F/U as moderate risk in 3-5 days, 04/09-04/11 Expected Outcomes/Goals Expected Outcomes/Goals 1. PO intake to improve to at least 75% completed 2. Wt stability, skin to remain intact, improved glucose levels Reviewed by Sneha He
--- NOTE | 2018-04-07 03:40 | Progress Notes ---
DATE: 04/06/2018 The patient in the hospital, agitation, psychosis, poor historian, cannot participate in meaningful conversation, agitated, at times requiring emergency medications. The patient on [id number] refusing to speak with me. The patient was seen by Dr. Vasquez over the weekend and noted to be aggressive, combative, not following directions, but somewhat calmer since admission. Staff noting ongoing behavioral disturbances, unpredictable, confused, wandering, poor orientation, unpredictable and impulsive. PLAN: We will continue to monitor. The patient remains confused, unpredictable, still ongoing safety concerns. JOB# [id number]
[2018-04-07] MEDS: Calcium Carb/Vit D 500 mg/200 U Tab PO SCH ×2 (08:52→17:04)
[2018-04-07] MEDS: Polyvinyl Alcohol Ophth Soln 15 mL Bottle EACH EYE SCH ×2 (08:55→17:05)
--- NOTE | 2018-04-07 16:50 | General Progress Note ---
Subjective - Review of Systems Service Date: 04/07/18 Subjective: resting comfortably no complaints Objective - Results Result Diagrams: 04/01/18 19:45 04/01/18 19:45 Recent Labs: Laboratory Last Values WBC 5.5 Th/cmm (4.8-10.8) 04/01/18 19:45 RBC 4.36 Mil/cmm (3.80-5.20) 04/01/18 19:45 Hgb 13.6 gm/dL (12-16) 04/01/18 19:45 Hct 41.3 % (41.0-60) 04/01/18 19:45 MCV 94.7 fl (81-100) 04/01/18 19:45 MCH 31.2 pg (27.0-31.0) H 04/01/18 19:45 MCHC Differential 32.9 pg (28.0-36.0) 04/01/18 19:45 RDW 13.5 % (11.5-20.0) 04/01/18 19:45 Plt Count 172 Th/cmm (150-400) 04/01/18 19:45 MPV 8.5 fl 04/01/18 19:45 Neutrophils % 61.2 % (40.0-80.0) 04/01/18 19:45 Lymphocytes % 25.4 % (20.0-50.0) 04/01/18 19:45 Monocytes % 7.6 % (2.0-10.0) 04/01/18 19:45 Eosinophils % 4.9 % (0.0-5.0) 04/01/18 19:45 Basophils % 0.9 % (0.0-2.0) 04/01/18 19:45 Sodium 137 mEq/L (136-145) 04/01/18 19:45 Potassium 3.5 mEq/L (3.5-5.1) 04/01/18 19:45 Chloride 104 mEq/L (98-107) 04/01/18 19:45 Carbon Dioxide 22.3 mEq/L (21.0-31.0) 04/01/18 19:45 Anion Gap 14.2 (7.0-16.0) 04/01/18 19:45 BUN 22 mg/dL (7-25) 04/01/18 19:45 Creatinine 0.7 mg/dL (0.6-1.2) 04/01/18 19:45 Est GFR ( Amer) TNP 04/01/18 19:45 Est GFR (Non-Af Amer) TNP 04/01/18 19:45 BUN/Creatinine Ratio 31.4 04/01/18 19:45 Glucose 111 mg/dL (70-105) H 04/01/18 19:45 Calcium 10.2 mg/dL (8.6-10.3) 04/01/18 19:45 Total Bilirubin 0.7 mg/dL (0.3-1.0) 04/01/18 19:45 AST 16 U/L (13-39) 04/01/18 19:45 ALT 8 U/L (7-52) 04/01/18 19:45 Alkaline Phosphatase 65 U/L (34-104) 04/01/18 19:45 Troponin I 0.14 ng/mL (0.01-0.05) H* 04/01/18 19:45 Total Protein 7.4 gm/dL (6.0-8.3) 04/01/18 19:45 Albumin 4.3 gm/dL (3.7-5.3) 04/01/18 19:45 Globulin 3.1 gm/dL 04/01/18 19:45 Albumin/Globulin Ratio 1.4 (1.0-1.8) 04/01/18 19:45 Triglycerides 54 mg/dL (<150) 04/01/18 19:45 Cholesterol 185 mg/dL (<200) 04/01/18 19:45 LDL Cholesterol Direct 121 mg/dL (75-193) 04/01/18 19:45 HDL Cholesterol 48 mg/dL (23-92) 04/01/18 19:45 TSH 0.23 uIU/ml (0.34-5.60) L 04/01/18 19:45 Salicylates < 25.0 mg/L (30.0-100.0) L 04/01/18 19:45 Acetaminophen < 10.0 ug/mL (10.0-30.0) L 04/01/18 19:45 Ethyl Alcohol < 10 mg/dL (0-10) 04/01/18 19:45 RPR NONREACTIVE (NONREACTIVE) 04/01/18 19:45 - Physical Exam Vitals and I&O: Vital Signs Temp 98.0 F 04/07/18 14:00 Pulse 62 04/07/18 14:00 Resp 18 04/07/18 14:00 BP 116/56 04/07/18 14:00 Pulse Ox 97 04/07/18 14:00 Intake & Output 04/06/18 04/07/18 04/07/18 18:59 06:59 18:59 Intake Total 1200 360 Output Total 1 Balance 1200 359 Intake: Oral 1200 360 Output: Urine/Stool Mix 1 Other: # Voids 4 1 # Bowel Movements 1 0 Active Medications: Current Medications Acetaminophen (Tylenol) 650 mg PO Q6HR PRN PRN Reason: Pain or Fever >101 Stop: 06/01/18 03:26 Alendronate Sodium (Fosamax) 70 mg PO Q7D [facility] Stop: 06/02/18 06:29 Last Admin: 04/03/18 07:02 Dose: 70 mg Allopurinol (Zyloprim) 300 mg PO DAILY [facility] Stop: 06/01/18 08:59 Last Admin: 04/07/18 08:52 Dose: 300 mg Aripiprazole (Abilify) 2.5 mg PO DAILY [facility]; Protocol Stop: 06/02/18 16:59 Last Admin: 04/07/18 08:53 Dose: 2.5 mg Artificial Tears (Artificial Tears Ophth Soln) 1 drop EACH EYE BID [facility] Stop: 06/01/18 08:59 Last Admin: 04/07/18 08:55 Dose: 1 drop Aspirin (Ecotrin) 81 mg PO DAILY [facility] Stop: 06/01/18 08:59 Last Admin: 04/07/18 08:55 Dose: 81 mg Benazepril HCl (Lotensin) 5 mg PO BID [facility] Stop: 06/01/18 08:59 Last Admin: 04/07/18 08:54 Dose: 5 mg Calcium/Vitamin D (Oscal W/Vitamin D) 1 tab PO BID [facility] Stop: 06/01/18 08:59 Last Admin: 04/07/18 08:52 Dose: 1 tab Docusate Sodium (Colace) 100 mg PO BID [facility] Stop: 06/01/18 08:59 Last Admin: 04/07/18 08:52 Dose: 100 mg Donepezil HCl (Aricept) 10 mg PO HS [facility] Stop: 06/01/18 20:59 Last Admin: 04/06/18 20:33 Dose: 10 mg Furosemide (Lasix) 20 mg PO DAILY [facility] Stop: 06/01/18 08:59 Last Admin: 04/07/18 08:52 Dose: 20 mg Guaifenesin/Dextromethorphan (Diabetic Tussin Dm Sugar Free) 5 ml PO Q6H PRN PRN Reason: Cough Stop: 06/01/18 03:26 Lorazepam (Ativan) 0.5 mg PO Q4HR PRN; Protocol PRN Reason: Anxiety Stop: 05/01/18 22:12 Last Admin: 04/06/18 20:33 Dose: 0.5 mg Magnesium Hydroxide (Milk Of Magnesia) 30 ml PO HS PRN PRN Reason: Constipation Memantine (Namenda) 5 mg PO DAILY [facility] Stop: 06/06/18 08:59 Last Admin: 04/07/18 08:55 Dose: 5 mg Methimazole (Tapazole) 5 mg PO QDAC [facility] Stop: 06/01/18 07:29 Last Admin: 04/07/18 06:46 Dose: 5 mg Miscellaneous (Paliperidone [Paliperidone Er]) 1.5 mg PO DAILY [facility] Stop: 06/02/18 08:59 Simvastatin (Zocor) 20 mg PO HS [facility]; Protocol Stop: 06/01/18 20:59 Last Admin: 04/06/18 20:33 Dose: 20 mg General: No acute distress HEENT: Atraumatic, PERRLA Neck: Supple, JVD, Thyromegaly Cardiovascular: Regular rate, Normal S1, Normal S2 Lungs: Clear to auscultation Abdomen: Bowel sounds, Soft Assessment/Plan - Assessment Assessment: depression DM HTN hyperlipidemia - Plan Plan: continue current treatment Nutritional Asmnt/Malnutr-PDOC - Dietary Evaluation Malnutrition Findings (Please click <Entered> for more info): Nutritional Asmnt/Malnutrition Start: 04/06/18 14: 17 Text: Status: Complete Freq: Protocol: Document 04/06/18 14:18 GERMAINE (Rec: 04/06/18 14:39 GERMAINE DELAROSA) Nutritional Asmnt/Malnutrition Patient General Information Nutritional Screening Moderate Risk Diagnosis psychosis Pertinent Medical Hx/Surgical Hx HTN, DM, arthritis, dementia, depression, gout, hyperlipidemia, osteoporosis Subjective Information Pt was eating lunch in room at time of visit. Pt provided food preferences. Nursing noted intake: 50-75% average. Recorded wt has not changed from 04/01-04/05. Current Diet Order/ Nutrition Support CCHO 60 gm, low sodium Pertinent Medications oscal w/ vit D, colace, lasix, MOM Pertinent Labs 04/01: glucose 111 Nutritional Hx/Data Height 1.75 m Height (Calculated Centimeters) 175.3 Current Weight (lbs) 78.018 kg Weight (Calculated Kilograms) 78.0 Weight (Calculated Grams) 87807.9 [place] Body Weight 145 Body Mass Index (BMI) 25.4 Weight Status Overweight GI Symptoms GI Symptoms None Last BM 04/03 Difficult in: None Food Allergies No Skin Integrity/Comment: intact Current %PO Fair (50-74%) Estimated Nutritional Goals BEE in Kcals: Using Current wt Calories/Kcals/Kg 23-27 Kcals Calculated 5682-4688 Protein: Using Current wt Protein g/k.8-1 Protein Calculated 63-78 g Fluid: ml 3844-1901 Nutritional Problem No current Nutrition Prob Problem no nutrition diagnosis at this time Malnutrition Alert Is there a minimum of two criteria No selected? Query Text:Check all the applicable criteria. A minimum of two criteria are recommended for diagnosis of either severe or non-severe malnutrition. Malnutrition Related to Morbid Obesity Malnutrition related to morbid obesity No Intervention/Recommendation Comments 1. Continue with CCHO 60 gm, low sodium diet as ordered. Updated diet profile. 2. Encourage pt to eat and monitor PO intake, wt, labs and skin integrity 3. F/U as moderate risk in 3-5 days, 04/09-04/11 Expected Outcomes/Goals Expected Outcomes/Goals 1. PO intake to improve to at least 75% completed 2. Wt stability, skin to remain intact, improved glucose levels Reviewed by Sneha He
--- NOTE | 2018-04-07 19:06 | Progress Notes ---
DATE: 04/07/2018 SUBJECTIVE: The patient in the hospital, agitated, unable to participate in meaningful conversation, at times requiring emergency medications. The patient stating that she has no idea why she is here, "they brought me here. My son brought me here." Does not know the year, the month, calling me her lover. The patient is bizarre, noted to be combative, somewhat calmer since admission, mostly withdrawn, isolative, slept for about 9 hours. ASSESSMENT: The patient is confused, disoriented, withdrawn, impulsive, unpredictable, easily agitated and irritable. PLAN: We will continue to monitor, titrate and adjust medications. Medications were reviewed. Continue Rolando Archibald. Consider Cherrie. JOB# [id number]
[2018-04-08] MEDS: Calcium Carb/Vit D 500 mg/200 U Tab PO SCH ×2 (08:31→16:14)
[2018-04-08] MEDS: Polyvinyl Alcohol Ophth Soln 15 mL Bottle EACH EYE SCH ×2 (08:36→16:18)
--- NOTE | 2018-04-08 11:04 | General Progress Note ---
Subjective - Review of Systems Service Date: 04/08/18 Subjective: resting comfortably no complaints Objective - Results Result Diagrams: 04/01/18 19:45 04/01/18 19:45 Recent Labs: Laboratory Last Values WBC 5.5 Th/cmm (4.8-10.8) 04/01/18 19:45 RBC 4.36 Mil/cmm (3.80-5.20) 04/01/18 19:45 Hgb 13.6 gm/dL (12-16) 04/01/18 19:45 Hct 41.3 % (41.0-60) 04/01/18 19:45 MCV 94.7 fl (81-100) 04/01/18 19:45 MCH 31.2 pg (27.0-31.0) H 04/01/18 19:45 MCHC Differential 32.9 pg (28.0-36.0) 04/01/18 19:45 RDW 13.5 % (11.5-20.0) 04/01/18 19:45 Plt Count 172 Th/cmm (150-400) 04/01/18 19:45 MPV 8.5 fl 04/01/18 19:45 Neutrophils % 61.2 % (40.0-80.0) 04/01/18 19:45 Lymphocytes % 25.4 % (20.0-50.0) 04/01/18 19:45 Monocytes % 7.6 % (2.0-10.0) 04/01/18 19:45 Eosinophils % 4.9 % (0.0-5.0) 04/01/18 19:45 Basophils % 0.9 % (0.0-2.0) 04/01/18 19:45 Sodium 137 mEq/L (136-145) 04/01/18 19:45 Potassium 3.5 mEq/L (3.5-5.1) 04/01/18 19:45 Chloride 104 mEq/L (98-107) 04/01/18 19:45 Carbon Dioxide 22.3 mEq/L (21.0-31.0) 04/01/18 19:45 Anion Gap 14.2 (7.0-16.0) 04/01/18 19:45 BUN 22 mg/dL (7-25) 04/01/18 19:45 Creatinine 0.7 mg/dL (0.6-1.2) 04/01/18 19:45 Est GFR ( Amer) TNP 04/01/18 19:45 Est GFR (Non-Af Amer) TNP 04/01/18 19:45 BUN/Creatinine Ratio 31.4 04/01/18 19:45 Glucose 111 mg/dL (70-105) H 04/01/18 19:45 Calcium 10.2 mg/dL (8.6-10.3) 04/01/18 19:45 Total Bilirubin 0.7 mg/dL (0.3-1.0) 04/01/18 19:45 AST 16 U/L (13-39) 04/01/18 19:45 ALT 8 U/L (7-52) 04/01/18 19:45 Alkaline Phosphatase 65 U/L (34-104) 04/01/18 19:45 Troponin I 0.14 ng/mL (0.01-0.05) H* 04/01/18 19:45 Total Protein 7.4 gm/dL (6.0-8.3) 04/01/18 19:45 Albumin 4.3 gm/dL (3.7-5.3) 04/01/18 19:45 Globulin 3.1 gm/dL 04/01/18 19:45 Albumin/Globulin Ratio 1.4 (1.0-1.8) 04/01/18 19:45 Triglycerides 54 mg/dL (<150) 04/01/18 19:45 Cholesterol 185 mg/dL (<200) 04/01/18 19:45 LDL Cholesterol Direct 121 mg/dL (75-193) 04/01/18 19:45 HDL Cholesterol 48 mg/dL (23-92) 04/01/18 19:45 TSH 0.23 uIU/ml (0.34-5.60) L 04/01/18 19:45 Salicylates < 25.0 mg/L (30.0-100.0) L 04/01/18 19:45 Acetaminophen < 10.0 ug/mL (10.0-30.0) L 04/01/18 19:45 Ethyl Alcohol < 10 mg/dL (0-10) 04/01/18 19:45 RPR NONREACTIVE (NONREACTIVE) 04/01/18 19:45 - Physical Exam Vitals and I&O: Vital Signs Temp 98.2 F 04/08/18 06:17 Pulse 74 04/08/18 08:30 Resp 18 04/08/18 06:17 BP 133/57 04/08/18 08:31 Pulse Ox 95 04/08/18 06:17 Intake & Output 04/07/18 04/08/18 04/08/18 18:59 06:59 18:59 Intake Total 800 120 Balance 800 120 Intake: Oral 800 120 Other: # Voids 3 3 # Bowel Movements 1 Active Medications: Current Medications Acetaminophen (Tylenol) 650 mg PO Q6HR PRN PRN Reason: Pain or Fever >101 Stop: 06/01/18 03:26 Alendronate Sodium (Fosamax) 70 mg PO Q7D [facility] Stop: 06/02/18 06:29 Last Admin: 04/03/18 07:02 Dose: 70 mg Allopurinol (Zyloprim) 300 mg PO DAILY [facility] Stop: 06/01/18 08:59 Last Admin: 04/08/18 08:29 Dose: 300 mg Aripiprazole (Abilify) 2.5 mg PO DAILY [facility]; Protocol Stop: 06/02/18 16:59 Last Admin: 04/08/18 08:30 Dose: 2.5 mg Artificial Tears (Artificial Tears Ophth Soln) 1 drop EACH EYE BID [facility] Stop: 06/01/18 08:59 Last Admin: 04/08/18 08:36 Dose: 1 drop Aspirin (Ecotrin) 81 mg PO DAILY [facility] Stop: 06/01/18 08:59 Last Admin: 04/08/18 08:30 Dose: 81 mg Benazepril HCl (Lotensin) 5 mg PO BID [facility] Stop: 06/01/18 08:59 Last Admin: 04/08/18 08:30 Dose: 5 mg Calcium/Vitamin D (Oscal W/Vitamin D) 1 tab PO BID [facility] Stop: 06/01/18 08:59 Last Admin: 04/08/18 08:31 Dose: 1 tab Docusate Sodium (Colace) 100 mg PO BID [facility] Stop: 06/01/18 08:59 Last Admin: 04/08/18 08:32 Dose: 100 mg Donepezil HCl (Aricept) 10 mg PO HS [facility] Stop: 06/01/18 20:59 Last Admin: 04/07/18 20:34 Dose: 10 mg Furosemide (Lasix) 20 mg PO DAILY [facility] Stop: 06/01/18 08:59 Last Admin: 04/08/18 08:31 Dose: 20 mg Guaifenesin/Dextromethorphan (Diabetic Tussin Dm Sugar Free) 5 ml PO Q6H PRN PRN Reason: Cough Stop: 06/01/18 03:26 Lorazepam (Ativan) 0.5 mg PO Q4HR PRN; Protocol PRN Reason: Anxiety Stop: 05/01/18 22:12 Last Admin: 04/07/18 20:34 Dose: 0.5 mg Magnesium Hydroxide (Milk Of Magnesia) 30 ml PO HS PRN PRN Reason: Constipation Memantine (Namenda) 5 mg PO DAILY [facility] Stop: 06/06/18 08:59 Last Admin: 04/08/18 08:32 Dose: 5 mg Methimazole (Tapazole) 5 mg PO QDAC [facility] Stop: 06/01/18 07:29 Last Admin: 04/08/18 06:48 Dose: 5 mg Miscellaneous (Paliperidone [Paliperidone Er]) 1.5 mg PO DAILY [facility] Stop: 06/02/18 08:59 Simvastatin (Zocor) 20 mg PO HS [facility]; Protocol Stop: 06/01/18 20:59 Last Admin: 04/07/18 20:34 Dose: 20 mg General: No acute distress HEENT: Atraumatic, PERRLA Neck: Supple, JVD, Thyromegaly Cardiovascular: Regular rate, Normal S1, Normal S2 Lungs: Clear to auscultation Abdomen: Bowel sounds, Soft Assessment/Plan - Assessment Assessment: depression DM HTN hyperlipidemia - Plan Plan: continue current treatment Nutritional Asmnt/Malnutr-PDOC - Dietary Evaluation Malnutrition Findings (Please click <Entered> for more info): Nutritional Asmnt/Malnutrition Start: 04/06/18 14: 17 Text: Status: Complete Freq: Protocol: Document 04/06/18 14:18 GERMAINE (Rec: 04/06/18 14:39 GERMAINE DELAROSA) Nutritional Asmnt/Malnutrition Patient General Information Nutritional Screening Moderate Risk Diagnosis psychosis Pertinent Medical Hx/Surgical Hx HTN, DM, arthritis, dementia, depression, gout, hyperlipidemia, osteoporosis Subjective Information Pt was eating lunch in room at time of visit. Pt provided food preferences. Nursing noted intake: 50-75% average. Recorded wt has not changed from 04/01-04/05. Current Diet Order/ Nutrition Support CCHO 60 gm, low sodium Pertinent Medications oscal w/ vit D, colace, lasix, MOM Pertinent Labs 04/01: glucose 111 Nutritional Hx/Data Height 1.75 m Height (Calculated Centimeters) 175.3 Current Weight (lbs) 78.018 kg Weight (Calculated Kilograms) 78.0 Weight (Calculated Grams) 74393.9 [place] Body Weight 145 Body Mass Index (BMI) 25.4 Weight Status Overweight GI Symptoms GI Symptoms None Last BM 04/03 Difficult in: None Food Allergies No Skin Integrity/Comment: intact Current %PO Fair (50-74%) Estimated Nutritional Goals BEE in Kcals: Using Current wt Calories/Kcals/Kg 23-27 Kcals Calculated 4640-0411 Protein: Using Current wt Protein g/k.8-1 Protein Calculated 63-78 g Fluid: ml 8943-5762 Nutritional Problem No current Nutrition Prob Problem no nutrition diagnosis at this time Malnutrition Alert Is there a minimum of two criteria No selected? Query Text:Check all the applicable criteria. A minimum of two criteria are recommended for diagnosis of either severe or non-severe malnutrition. Malnutrition Related to Morbid Obesity Malnutrition related to morbid obesity No Intervention/Recommendation Comments 1. Continue with CCHO 60 gm, low sodium diet as ordered. Updated diet profile. 2. Encourage pt to eat and monitor PO intake, wt, labs and skin integrity 3. F/U as moderate risk in 3-5 days, 04/09-04/11 Expected Outcomes/Goals Expected Outcomes/Goals 1. PO intake to improve to at least 75% completed 2. Wt stability, skin to remain intact, improved glucose levels Reviewed by Sneha He
--- NOTE | 2018-04-08 21:57 | Progress Notes ---
DATE: 04/08/2018 SUBJECTIVE: The patient is currently in the hospital, redirectable, withdrawn, isolative, not making any sense, does not know why she is here or what is going on. AO to name only, does not know the date. Still depressed, mostly withdrawn and keeps to herself, mumbling to self. No agitation, no escalation of behaviors, concerns about her mood, depressed mood, withdrawn mood. ASSESSMENT: The patient remains confused, withdrawn, isolative, concerns about her impulsivity. PLAN: Continue to monitor, continue Aricept, Abilify. Consider a dose titration of Namenda over the next few days. JOB# [id number]
[2018-04-09] MEDS: Calcium Carb/Vit D 500 mg/200 U Tab PO SCH ×2 (08:49→17:10)
[2018-04-09] MEDS: Polyvinyl Alcohol Ophth Soln 15 mL Bottle EACH EYE SCH ×2 (08:50→17:11)
--- NOTE | 2018-04-09 15:49 | General Progress Note ---
Subjective - Review of Systems Service Date: 04/09/18 Subjective: resting comfortably no complaints Objective - Results Result Diagrams: 04/01/18 19:45 04/01/18 19:45 Recent Labs: Laboratory Last Values WBC 5.5 Th/cmm (4.8-10.8) 04/01/18 19:45 RBC 4.36 Mil/cmm (3.80-5.20) 04/01/18 19:45 Hgb 13.6 gm/dL (12-16) 04/01/18 19:45 Hct 41.3 % (41.0-60) 04/01/18 19:45 MCV 94.7 fl (81-100) 04/01/18 19:45 MCH 31.2 pg (27.0-31.0) H 04/01/18 19:45 MCHC Differential 32.9 pg (28.0-36.0) 04/01/18 19:45 RDW 13.5 % (11.5-20.0) 04/01/18 19:45 Plt Count 172 Th/cmm (150-400) 04/01/18 19:45 MPV 8.5 fl 04/01/18 19:45 Neutrophils % 61.2 % (40.0-80.0) 04/01/18 19:45 Lymphocytes % 25.4 % (20.0-50.0) 04/01/18 19:45 Monocytes % 7.6 % (2.0-10.0) 04/01/18 19:45 Eosinophils % 4.9 % (0.0-5.0) 04/01/18 19:45 Basophils % 0.9 % (0.0-2.0) 04/01/18 19:45 Sodium 137 mEq/L (136-145) 04/01/18 19:45 Potassium 3.5 mEq/L (3.5-5.1) 04/01/18 19:45 Chloride 104 mEq/L (98-107) 04/01/18 19:45 Carbon Dioxide 22.3 mEq/L (21.0-31.0) 04/01/18 19:45 Anion Gap 14.2 (7.0-16.0) 04/01/18 19:45 BUN 22 mg/dL (7-25) 04/01/18 19:45 Creatinine 0.7 mg/dL (0.6-1.2) 04/01/18 19:45 Est GFR ( Amer) TNP 04/01/18 19:45 Est GFR (Non-Af Amer) TNP 04/01/18 19:45 BUN/Creatinine Ratio 31.4 04/01/18 19:45 Glucose 111 mg/dL (70-105) H 04/01/18 19:45 Calcium 10.2 mg/dL (8.6-10.3) 04/01/18 19:45 Total Bilirubin 0.7 mg/dL (0.3-1.0) 04/01/18 19:45 AST 16 U/L (13-39) 04/01/18 19:45 ALT 8 U/L (7-52) 04/01/18 19:45 Alkaline Phosphatase 65 U/L (34-104) 04/01/18 19:45 Troponin I 0.14 ng/mL (0.01-0.05) H* 04/01/18 19:45 Total Protein 7.4 gm/dL (6.0-8.3) 04/01/18 19:45 Albumin 4.3 gm/dL (3.7-5.3) 04/01/18 19:45 Globulin 3.1 gm/dL 04/01/18 19:45 Albumin/Globulin Ratio 1.4 (1.0-1.8) 04/01/18 19:45 Triglycerides 54 mg/dL (<150) 04/01/18 19:45 Cholesterol 185 mg/dL (<200) 04/01/18 19:45 LDL Cholesterol Direct 121 mg/dL (75-193) 04/01/18 19:45 HDL Cholesterol 48 mg/dL (23-92) 04/01/18 19:45 TSH 0.23 uIU/ml (0.34-5.60) L 04/01/18 19:45 Salicylates < 25.0 mg/L (30.0-100.0) L 04/01/18 19:45 Acetaminophen < 10.0 ug/mL (10.0-30.0) L 04/01/18 19:45 Ethyl Alcohol < 10 mg/dL (0-10) 04/01/18 19:45 RPR NONREACTIVE (NONREACTIVE) 04/01/18 19:45 - Physical Exam Vitals and I&O: Vital Signs Temp 97.2 F 04/09/18 14:00 Pulse 98 04/09/18 14:00 Resp 20 04/09/18 14:00 BP 160/80 04/09/18 14:00 Pulse Ox 97 04/09/18 14:00 Intake & Output 04/08/18 04/09/18 04/09/18 18:59 06:59 18:59 Intake Total 1200 Balance 1200 Intake: Oral 1200 Active Medications: Current Medications Acetaminophen (Tylenol) 650 mg PO Q6HR PRN PRN Reason: Pain or Fever >101 Stop: 06/01/18 03:26 Alendronate Sodium (Fosamax) 70 mg PO Q7D [facility] Stop: 06/02/18 06:29 Last Admin: 04/03/18 07:02 Dose: 70 mg Allopurinol (Zyloprim) 300 mg PO DAILY [facility] Stop: 06/01/18 08:59 Last Admin: 04/09/18 09:21 Dose: 300 mg Aripiprazole (Abilify) 2.5 mg PO DAILY [facility]; Protocol Stop: 06/02/18 16:59 Last Admin: 04/09/18 08:47 Dose: 2.5 mg Artificial Tears (Artificial Tears Ophth Soln) 1 drop EACH EYE BID [facility] Stop: 06/01/18 08:59 Last Admin: 04/09/18 08:50 Dose: 1 drop Aspirin (Ecotrin) 81 mg PO DAILY [facility] Stop: 06/01/18 08:59 Last Admin: 04/09/18 08:48 Dose: 81 mg Benazepril HCl (Lotensin) 5 mg PO BID [facility] Stop: 06/01/18 08:59 Last Admin: 04/09/18 08:46 Dose: 5 mg Calcium/Vitamin D (Oscal W/Vitamin D) 1 tab PO BID [facility] Stop: 06/01/18 08:59 Last Admin: 04/09/18 08:49 Dose: 1 tab Docusate Sodium (Colace) 100 mg PO BID [facility] Stop: 06/01/18 08:59 Last Admin: 04/09/18 08:49 Dose: 100 mg Donepezil HCl (Aricept) 10 mg PO HS [facility] Stop: 06/01/18 20:59 Last Admin: 04/08/18 20:59 Dose: Not Given Furosemide (Lasix) 20 mg PO DAILY [facility] Stop: 06/01/18 08:59 Last Admin: 04/09/18 08:49 Dose: 20 mg Guaifenesin/Dextromethorphan (Diabetic Tussin Dm Sugar Free) 5 ml PO Q6H PRN PRN Reason: Cough Stop: 06/01/18 03:26 Magnesium Hydroxide (Milk Of Magnesia) 30 ml PO HS PRN PRN Reason: Constipation Memantine (Namenda) 5 mg PO DAILY [facility] Stop: 06/06/18 08:59 Last Admin: 04/09/18 08:48 Dose: 5 mg Methimazole (Tapazole) 5 mg PO QDAC [facility] Stop: 06/01/18 07:29 Last Admin: 04/09/18 06:36 Dose: 5 mg Miscellaneous (Paliperidone [Paliperidone Er]) 1.5 mg PO DAILY [facility] Stop: 06/02/18 08:59 Simvastatin (Zocor) 20 mg PO HS [facility]; Protocol Stop: 06/01/18 20:59 Last Admin: 04/08/18 21:00 Dose: Not Given General: No acute distress HEENT: Atraumatic, PERRLA Neck: Supple, JVD, Thyromegaly Cardiovascular: Regular rate, Normal S1, Normal S2 Lungs: Clear to auscultation Abdomen: Bowel sounds, Soft Assessment/Plan - Assessment Assessment: depression DM HTN hyperlipidemia - Plan Plan: continue current treatment Nutritional Asmnt/Malnutr-PDOC - Dietary Evaluation Malnutrition Findings (Please click <Entered> for more info): Nutritional Asmnt/Malnutrition Start: 04/06/18 14: 17 Text: Status: Complete Freq: Protocol: Document 04/06/18 14:18 GERMAINE (Rec: 04/06/18 14:39 GERMAINE DELAROSA) Nutritional Asmnt/Malnutrition Patient General Information Nutritional Screening Moderate Risk Diagnosis psychosis Pertinent Medical Hx/Surgical Hx HTN, DM, arthritis, dementia, depression, gout, hyperlipidemia, osteoporosis Subjective Information Pt was eating lunch in room at time of visit. Pt provided food preferences. Nursing noted intake: 50-75% average. Recorded wt has not changed from 04/01-04/05. Current Diet Order/ Nutrition Support CCHO 60 gm, low sodium Pertinent Medications oscal w/ vit D, colace, lasix, MOM Pertinent Labs 04/01: glucose 111 Nutritional Hx/Data Height 1.75 m Height (Calculated Centimeters) 175.3 Current Weight (lbs) 78.018 kg Weight (Calculated Kilograms) 78.0 Weight (Calculated Grams) 81782.9 [place] Body Weight 145 Body Mass Index (BMI) 25.4 Weight Status Overweight GI Symptoms GI Symptoms None Last BM 04/03 Difficult in: None Food Allergies No Skin Integrity/Comment: intact Current %PO Fair (50-74%) Estimated Nutritional Goals BEE in Kcals: Using Current wt Calories/Kcals/Kg 23-27 Kcals Calculated 4869-6989 Protein: Using Current wt Protein g/k.8-1 Protein Calculated 63-78 g Fluid: ml 0463-5144 Nutritional Problem No current Nutrition Prob Problem no nutrition diagnosis at this time Malnutrition Alert Is there a minimum of two criteria No selected? Query Text:Check all the applicable criteria. A minimum of two criteria are recommended for diagnosis of either severe or non-severe malnutrition. Malnutrition Related to Morbid Obesity Malnutrition related to morbid obesity No Intervention/Recommendation Comments 1. Continue with CCHO 60 gm, low sodium diet as ordered. Updated diet profile. 2. Encourage pt to eat and monitor PO intake, wt, labs and skin integrity 3. F/U as moderate risk in 3-5 days, 04/09-04/11 Expected Outcomes/Goals Expected Outcomes/Goals 1. PO intake to improve to at least 75% completed 2. Wt stability, skin to remain intact, improved glucose levels Reviewed by Sneha He
--- NOTE | 2018-04-09 22:34 | Progress Notes ---
DATE: SUBJECTIVE: Chart reviewed and the patient interviewed. Also discussed the patient's condition with the staff and reviewed records and labs. Dr. Vasquez covering for Dr. Renee. The patient is still guarded and withdrawn and isolates herself. The patient is interacting minimally with others. She also still needs lots of redirections. Also, her thought processes are disorganized. She also still seems to be severely depressed and anxious and wanted to be left alone. ASSESSMENT: The patient is still confused and withdrawn. TREATMENT PLAN: Continue to monitor her behavior and her condition closely. Also, continue adjusting psychotropic medications and follow up closely. JOB# [id number]
--- NOTE | 2018-04-10 06:54 | Progress Notes ---
DATE: SUBJECTIVE: Chart reviewed and the patient interviewed. Also discussed the patient's condition with the staff and reviewed records and labs. The patient slept slightly better last night after she was not able to sleep at night. The patient is still confused and she is still wandering around the unit. The patient also is compliant with taking her medications with no side effects of medications. She still needs lots of redirections. ASSESSMENT: The patient is still psychotic and confused. TREATMENT PLAN: Continue monitoring her behavior and her condition and continue adjusting psychotropic medications and work on behavioral modification. JOB# [id number]
[2018-04-10] MEDS: Calcium Carb/Vit D 500 mg/200 U Tab PO SCH ×2 (09:27→16:37)
[2018-04-10] MEDS: Polyvinyl Alcohol Ophth Soln 15 mL Bottle EACH EYE SCH ×2 (09:29→16:38)
--- NOTE | 2018-04-10 15:27 | General Progress Note ---
Subjective - Review of Systems Service Date: 04/10/18 Subjective: resting comfortably no complaints Objective - Results Result Diagrams: 04/01/18 19:45 04/01/18 19:45 Recent Labs: Laboratory Last Values WBC 5.5 Th/cmm (4.8-10.8) 04/01/18 19:45 RBC 4.36 Mil/cmm (3.80-5.20) 04/01/18 19:45 Hgb 13.6 gm/dL (12-16) 04/01/18 19:45 Hct 41.3 % (41.0-60) 04/01/18 19:45 MCV 94.7 fl (81-100) 04/01/18 19:45 MCH 31.2 pg (27.0-31.0) H 04/01/18 19:45 MCHC Differential 32.9 pg (28.0-36.0) 04/01/18 19:45 RDW 13.5 % (11.5-20.0) 04/01/18 19:45 Plt Count 172 Th/cmm (150-400) 04/01/18 19:45 MPV 8.5 fl 04/01/18 19:45 Neutrophils % 61.2 % (40.0-80.0) 04/01/18 19:45 Lymphocytes % 25.4 % (20.0-50.0) 04/01/18 19:45 Monocytes % 7.6 % (2.0-10.0) 04/01/18 19:45 Eosinophils % 4.9 % (0.0-5.0) 04/01/18 19:45 Basophils % 0.9 % (0.0-2.0) 04/01/18 19:45 Sodium 137 mEq/L (136-145) 04/01/18 19:45 Potassium 3.5 mEq/L (3.5-5.1) 04/01/18 19:45 Chloride 104 mEq/L (98-107) 04/01/18 19:45 Carbon Dioxide 22.3 mEq/L (21.0-31.0) 04/01/18 19:45 Anion Gap 14.2 (7.0-16.0) 04/01/18 19:45 BUN 22 mg/dL (7-25) 04/01/18 19:45 Creatinine 0.7 mg/dL (0.6-1.2) 04/01/18 19:45 Est GFR ( Amer) TNP 04/01/18 19:45 Est GFR (Non-Af Amer) TNP 04/01/18 19:45 BUN/Creatinine Ratio 31.4 04/01/18 19:45 Glucose 111 mg/dL (70-105) H 04/01/18 19:45 Calcium 10.2 mg/dL (8.6-10.3) 04/01/18 19:45 Total Bilirubin 0.7 mg/dL (0.3-1.0) 04/01/18 19:45 AST 16 U/L (13-39) 04/01/18 19:45 ALT 8 U/L (7-52) 04/01/18 19:45 Alkaline Phosphatase 65 U/L (34-104) 04/01/18 19:45 Troponin I 0.14 ng/mL (0.01-0.05) H* 04/01/18 19:45 Total Protein 7.4 gm/dL (6.0-8.3) 04/01/18 19:45 Albumin 4.3 gm/dL (3.7-5.3) 04/01/18 19:45 Globulin 3.1 gm/dL 04/01/18 19:45 Albumin/Globulin Ratio 1.4 (1.0-1.8) 04/01/18 19:45 Triglycerides 54 mg/dL (<150) 04/01/18 19:45 Cholesterol 185 mg/dL (<200) 04/01/18 19:45 LDL Cholesterol Direct 121 mg/dL (75-193) 04/01/18 19:45 HDL Cholesterol 48 mg/dL (23-92) 04/01/18 19:45 TSH 0.23 uIU/ml (0.34-5.60) L 04/01/18 19:45 Salicylates < 25.0 mg/L (30.0-100.0) L 04/01/18 19:45 Acetaminophen < 10.0 ug/mL (10.0-30.0) L 04/01/18 19:45 Ethyl Alcohol < 10 mg/dL (0-10) 04/01/18 19:45 RPR NONREACTIVE (NONREACTIVE) 04/01/18 19:45 - Physical Exam Vitals and I&O: Vital Signs Temp 97.7 F 04/10/18 14:00 Pulse 62 04/10/18 14:00 Resp 18 04/10/18 14:00 BP 117/63 04/10/18 14:00 Pulse Ox 97 04/10/18 14:00 Intake & Output 04/09/18 04/10/18 04/10/18 18:59 06:59 18:59 Intake Total 1200 480 Balance 1200 480 Intake: Oral 1200 480 Other: # Voids 1 # Bowel Movements 1 Active Medications: Current Medications Acetaminophen (Tylenol) 650 mg PO Q6HR PRN PRN Reason: Pain or Fever >101 Stop: 06/01/18 03:26 Alendronate Sodium (Fosamax) 70 mg PO Q7D [facility] Stop: 06/02/18 06:29 Last Admin: 04/10/18 06:42 Dose: 70 mg Allopurinol (Zyloprim) 300 mg PO DAILY [facility] Stop: 06/01/18 08:59 Last Admin: 04/10/18 09:24 Dose: 300 mg Aripiprazole (Abilify) 2.5 mg PO DAILY [facility]; Protocol Stop: 06/02/18 16:59 Last Admin: 04/10/18 09:26 Dose: 2.5 mg Artificial Tears (Artificial Tears Ophth Soln) 1 drop EACH EYE BID [facility] Stop: 06/01/18 08:59 Last Admin: 04/10/18 09:29 Dose: 1 drop Aspirin (Ecotrin) 81 mg PO DAILY [facility] Stop: 06/01/18 08:59 Last Admin: 04/10/18 09:26 Dose: 81 mg Benazepril HCl (Lotensin) 5 mg PO BID [facility] Stop: 06/01/18 08:59 Last Admin: 04/10/18 09:26 Dose: Not Given Calcium/Vitamin D (Oscal W/Vitamin D) 1 tab PO BID [facility] Stop: 06/01/18 08:59 Last Admin: 04/10/18 09:27 Dose: 1 tab Docusate Sodium (Colace) 100 mg PO BID [facility] Stop: 06/01/18 08:59 Last Admin: 04/10/18 09:24 Dose: 100 mg Donepezil HCl (Aricept) 10 mg PO HS [facility] Stop: 06/01/18 20:59 Last Admin: 04/09/18 21:05 Dose: 10 mg Furosemide (Lasix) 20 mg PO DAILY [facility] Stop: 06/01/18 08:59 Last Admin: 04/10/18 09:27 Dose: 20 mg Guaifenesin/Dextromethorphan (Diabetic Tussin Dm Sugar Free) 5 ml PO Q6H PRN PRN Reason: Cough Stop: 06/01/18 03:26 Magnesium Hydroxide (Milk Of Magnesia) 30 ml PO HS PRN PRN Reason: Constipation Memantine (Namenda) 5 mg PO DAILY [facility] Stop: 06/06/18 08:59 Last Admin: 04/10/18 09:27 Dose: 5 mg Methimazole (Tapazole) 5 mg PO QDAC [facility] Stop: 06/01/18 07:29 Last Admin: 04/10/18 06:42 Dose: 5 mg Miscellaneous (Paliperidone [Paliperidone Er]) 1.5 mg PO DAILY [facility] Stop: 06/02/18 08:59 Simvastatin (Zocor) 20 mg PO HS [facility]; Protocol Stop: 06/01/18 20:59 Last Admin: 04/09/18 21:05 Dose: 20 mg General: No acute distress HEENT: Atraumatic, PERRLA Neck: Supple, JVD, Thyromegaly Cardiovascular: Regular rate, Normal S1, Normal S2 Lungs: Clear to auscultation Abdomen: Bowel sounds, Soft Assessment/Plan - Assessment Assessment: depression DM HTN hyperlipidemia - Plan Plan: continue current treatment Nutritional Asmnt/Malnutr-PDOC - Dietary Evaluation Malnutrition Findings (Please click <Entered> for more info): Nutritional Asmnt/Malnutrition Start: 04/06/18 14: 17 Text: Status: Complete Freq: Protocol: Document 04/06/18 14:18 GERMAINE (Rec: 04/06/18 14:39 GERMAINE DELAROSA) Nutritional Asmnt/Malnutrition Patient General Information Nutritional Screening Moderate Risk Diagnosis psychosis Pertinent Medical Hx/Surgical Hx HTN, DM, arthritis, dementia, depression, gout, hyperlipidemia, osteoporosis Subjective Information Pt was eating lunch in room at time of visit. Pt provided food preferences. Nursing noted intake: 50-75% average. Recorded wt has not changed from 04/01-04/05. Current Diet Order/ Nutrition Support CCHO 60 gm, low sodium Pertinent Medications oscal w/ vit D, colace, lasix, MOM Pertinent Labs 04/01: glucose 111 Nutritional Hx/Data Height 1.75 m Height (Calculated Centimeters) 175.3 Current Weight (lbs) 78.018 kg Weight (Calculated Kilograms) 78.0 Weight (Calculated Grams) 33058.9 [place] Body Weight 145 Body Mass Index (BMI) 25.4 Weight Status Overweight GI Symptoms GI Symptoms None Last BM 04/03 Difficult in: None Food Allergies No Skin Integrity/Comment: intact Current %PO Fair (50-74%) Estimated Nutritional Goals BEE in Kcals: Using Current wt Calories/Kcals/Kg 23-27 Kcals Calculated 4143-7066 Protein: Using Current wt Protein g/k.8-1 Protein Calculated 63-78 g Fluid: ml 8098-8216 Nutritional Problem No current Nutrition Prob Problem no nutrition diagnosis at this time Malnutrition Alert Is there a minimum of two criteria No selected? Query Text:Check all the applicable criteria. A minimum of two criteria are recommended for diagnosis of either severe or non-severe malnutrition. Malnutrition Related to Morbid Obesity Malnutrition related to morbid obesity No Intervention/Recommendation Comments 1. Continue with CCHO 60 gm, low sodium diet as ordered. Updated diet profile. 2. Encourage pt to eat and monitor PO intake, wt, labs and skin integrity 3. F/U as moderate risk in 3-5 days, 04/09-04/11 Expected Outcomes/Goals Expected Outcomes/Goals 1. PO intake to improve to at least 75% completed 2. Wt stability, skin to remain intact, improved glucose levels Reviewed by Sneha He
[2018-04-11] MEDS: Calcium Carb/Vit D 500 mg/200 U Tab PO SCH ×2 (09:15→16:17)
[2018-04-11] MEDS: Polyvinyl Alcohol Ophth Soln 15 mL Bottle EACH EYE SCH ×2 (09:20→16:42)
--- NOTE | 2018-04-11 18:11 | Progress Notes ---
DATE: 04/11/2018 SUBJECTIVE: Chart reviewed and the patient interviewed. Also, discussed the patient's condition with the staff and reviewed records and labs. The patient is still confused. She also is still wandering around the unit and entering other patient's rooms. The patient also is more compliant now, is taking her medications and she did not refuse to take her medications. Otherwise, the patient has no side effects of medications. ASSESSMENT: The patient is still confused, but seems to be slightly less agitated. TREATMENT PLAN: Continue monitoring her behavior and her condition closely and continue to follow up. [facility]# [id number]
--- NOTE | 2018-04-11 20:07 | Internal Medicine Prog Note ---
Internal Medicine Subjective - Subjective Service Date: 04/11/18 Patient seen and examined:: with staff Patient is:: awake, verbal, in bed, confused Per staff patient has:: no adverse event Internal Medicine Objective - Results Result Diagrams: 04/01/18 19:45 04/01/18 19:45 Recent Labs: Laboratory Last Values WBC 5.5 Th/cmm (4.8-10.8) 04/01/18 19:45 RBC 4.36 Mil/cmm (3.80-5.20) 04/01/18 19:45 Hgb 13.6 gm/dL (12-16) 04/01/18 19:45 Hct 41.3 % (41.0-60) 04/01/18 19:45 MCV 94.7 fl (81-100) 04/01/18 19:45 MCH 31.2 pg (27.0-31.0) H 04/01/18 19:45 MCHC Differential 32.9 pg (28.0-36.0) 04/01/18 19:45 RDW 13.5 % (11.5-20.0) 04/01/18 19:45 Plt Count 172 Th/cmm (150-400) 04/01/18 19:45 MPV 8.5 fl 04/01/18 19:45 Neutrophils % 61.2 % (40.0-80.0) 04/01/18 19:45 Lymphocytes % 25.4 % (20.0-50.0) 04/01/18 19:45 Monocytes % 7.6 % (2.0-10.0) 04/01/18 19:45 Eosinophils % 4.9 % (0.0-5.0) 04/01/18 19:45 Basophils % 0.9 % (0.0-2.0) 04/01/18 19:45 Sodium 137 mEq/L (136-145) 04/01/18 19:45 Potassium 3.5 mEq/L (3.5-5.1) 04/01/18 19:45 Chloride 104 mEq/L (98-107) 04/01/18 19:45 Carbon Dioxide 22.3 mEq/L (21.0-31.0) 04/01/18 19:45 Anion Gap 14.2 (7.0-16.0) 04/01/18 19:45 BUN 22 mg/dL (7-25) 04/01/18 19:45 Creatinine 0.7 mg/dL (0.6-1.2) 04/01/18 19:45 Est GFR ( Amer) TNP 04/01/18 19:45 Est GFR (Non-Af Amer) TNP 04/01/18 19:45 BUN/Creatinine Ratio 31.4 04/01/18 19:45 Glucose 111 mg/dL (70-105) H 04/01/18 19:45 Calcium 10.2 mg/dL (8.6-10.3) 04/01/18 19:45 Total Bilirubin 0.7 mg/dL (0.3-1.0) 04/01/18 19:45 AST 16 U/L (13-39) 04/01/18 19:45 ALT 8 U/L (7-52) 04/01/18 19:45 Alkaline Phosphatase 65 U/L (34-104) 04/01/18 19:45 Troponin I 0.14 ng/mL (0.01-0.05) H* 04/01/18 19:45 Total Protein 7.4 gm/dL (6.0-8.3) 04/01/18 19:45 Albumin 4.3 gm/dL (3.7-5.3) 04/01/18 19:45 Globulin 3.1 gm/dL 04/01/18 19:45 Albumin/Globulin Ratio 1.4 (1.0-1.8) 04/01/18 19:45 Triglycerides 54 mg/dL (<150) 04/01/18 19:45 Cholesterol 185 mg/dL (<200) 04/01/18 19:45 LDL Cholesterol Direct 121 mg/dL (75-193) 04/01/18 19:45 HDL Cholesterol 48 mg/dL (23-92) 04/01/18 19:45 TSH 0.23 uIU/ml (0.34-5.60) L 04/01/18 19:45 Salicylates < 25.0 mg/L (30.0-100.0) L 04/01/18 19:45 Acetaminophen < 10.0 ug/mL (10.0-30.0) L 04/01/18 19:45 Ethyl Alcohol < 10 mg/dL (0-10) 04/01/18 19:45 RPR NONREACTIVE (NONREACTIVE) 04/01/18 19:45 - Physical Exam Vitals and I&O: Vital Signs Temp 97.8 F 04/11/18 14:00 Pulse 80 04/11/18 16:17 Resp 20 04/11/18 14:00 BP 135/70 04/11/18 16:17 Pulse Ox 95 04/11/18 14:00 Intake & Output 04/11/18 04/11/18 04/12/18 06:59 18:59 06:59 Intake Total 1000 Balance 1000 Intake: Oral 1000 Other: # Voids 4 # Bowel Movements 1 Active Medications: Current Medications Acetaminophen (Tylenol) 650 mg PO Q6HR PRN PRN Reason: Pain or Fever >101 Stop: 06/01/18 03:26 Alendronate Sodium (Fosamax) 70 mg PO Q7D [facility] Stop: 06/02/18 06:29 Last Admin: 04/10/18 06:42 Dose: 70 mg Allopurinol (Zyloprim) 300 mg PO DAILY [facility] Stop: 06/01/18 08:59 Last Admin: 04/11/18 09:15 Dose: 300 mg Aripiprazole (Abilify) 2.5 mg PO DAILY [facility]; Protocol Stop: 06/02/18 16:59 Last Admin: 04/11/18 09:17 Dose: 2.5 mg Artificial Tears (Artificial Tears Ophth Soln) 1 drop EACH EYE BID [facility] Stop: 06/01/18 08:59 Last Admin: 04/11/18 16:42 Dose: 1 drop Aspirin (Ecotrin) 81 mg PO DAILY [facility] Stop: 06/01/18 08:59 Last Admin: 04/11/18 09:16 Dose: 81 mg Benazepril HCl (Lotensin) 5 mg PO BID [facility] Stop: 06/01/18 08:59 Last Admin: 04/11/18 16:17 Dose: 5 mg Calcium/Vitamin D (Oscal W/Vitamin D) 1 tab PO BID [facility] Stop: 06/01/18 08:59 Last Admin: 04/11/18 16:17 Dose: 1 tab Docusate Sodium (Colace) 100 mg PO BID [facility] Stop: 06/01/18 08:59 Last Admin: 04/11/18 16:17 Dose: 100 mg Donepezil HCl (Aricept) 10 mg PO HS [facility] Stop: 06/01/18 20:59 Last Admin: 04/10/18 21:17 Dose: Not Given Furosemide (Lasix) 20 mg PO DAILY [facility] Stop: 06/01/18 08:59 Last Admin: 04/11/18 09:20 Dose: 20 mg Guaifenesin/Dextromethorphan (Diabetic Tussin Dm Sugar Free) 5 ml PO Q6H PRN PRN Reason: Cough Stop: 06/01/18 03:26 Magnesium Hydroxide (Milk Of Magnesia) 30 ml PO HS PRN PRN Reason: Constipation Memantine (Namenda) 5 mg PO DAILY [facility] Stop: 06/06/18 08:59 Last Admin: 04/11/18 09:15 Dose: 5 mg Methimazole (Tapazole) 5 mg PO QDAC [facility] Stop: 06/01/18 07:29 Last Admin: 04/11/18 06:47 Dose: Not Given Miscellaneous (Paliperidone [Paliperidone Er]) 1.5 mg PO DAILY [facility] Stop: 06/02/18 08:59 Simvastatin (Zocor) 20 mg PO HS [facility]ES; Protocol Stop: 06/01/18 20:59 Last Admin: 04/10/18 21:17 Dose: Not Given General: demented HEENT: NC/AT, PERRLA, EOMI, anicteric sclerae, throat clear Neck: Supple, No JVD, No thyromegaly, +2 carotid pulse wo bruit, No LAD Cardiovascular: RRR, Normal S1, Normal S2, without murmur Abdomen: soft, non-tender, non-distended Extremities: clear Neurological: no change Internal Medicine Assmt/Plan - Assessment Assessment: 1.HTN. 2.DM 3.HYPERLIPIDEMIA. 4.DEMENTIA. - Plan Plan: CONTINUE ON CURRENT MEDICATION AND DIET. Nutritional Asmnt/Malnutr-PDOC - Dietary Evaluation Malnutrition Findings (Please click <Entered> for more info): Nutritional Asmnt/Malnutrition Start: 04/06/18 14: 17 Text: Status: Complete Freq: Protocol: Document 04/06/18 14:18 GERMAINE (Rec: 04/06/18 14:39 GERMAINE DELAROSA) Nutritional Asmnt/Malnutrition Patient General Information Nutritional Screening Moderate Risk Diagnosis psychosis Pertinent Medical Hx/Surgical Hx HTN, DM, arthritis, dementia, depression, gout, hyperlipidemia, osteoporosis Subjective Information Pt was eating lunch in room at time of visit. Pt provided food preferences. Nursing noted intake: 50-75% average. Recorded wt has not changed from 04/01-04/05. Current Diet Order/ Nutrition Support CCHO 60 gm, low sodium Pertinent Medications oscal w/ vit D, colace, lasix, MOM Pertinent Labs 04/01: glucose 111 Nutritional Hx/Data Height 1.75 m Height (Calculated Centimeters) 175.3 Current Weight (lbs) 78.018 kg Weight (Calculated Kilograms) 78.0 Weight (Calculated Grams) 72570.9 [place] Body Weight 145 Body Mass Index (BMI) 25.4 Weight Status Overweight GI Symptoms GI Symptoms None Last BM 04/03 Difficult in: None Food Allergies No Skin Integrity/Comment: intact Current %PO Fair (50-74%) Estimated Nutritional Goals BEE in Kcals: Using Current wt Calories/Kcals/Kg 23-27 Kcals Calculated 2956-2904 Protein: Using Current wt Protein g/k.8-1 Protein Calculated 63-78 g Fluid: ml 5073-5597 Nutritional Problem No current Nutrition Prob Problem no nutrition diagnosis at this time Malnutrition Alert Is there a minimum of two criteria No selected? Query Text:Check all the applicable criteria. A minimum of two criteria are recommended for diagnosis of either severe or non-severe malnutrition. Malnutrition Related to Morbid Obesity Malnutrition related to morbid obesity No Intervention/Recommendation Comments 1. Continue with CCHO 60 gm, low sodium diet as ordered. Updated diet profile. 2. Encourage pt to eat and monitor PO intake, wt, labs and skin integrity 3. F/U as moderate risk in 3-5 days, 04/09-04/11 Expected Outcomes/Goals Expected Outcomes/Goals 1. PO intake to improve to at least 75% completed 2. Wt stability, skin to remain intact, improved glucose levels Reviewed by Sneha He
[2018-04-12] MEDS: Polyvinyl Alcohol Ophth Soln 15 mL Bottle EACH EYE SCH ×2 (09:27→17:35)
[2018-04-12] MEDS: Calcium Carb/Vit D 500 mg/200 U Tab PO SCH ×2 (09:27→17:32)
--- NOTE | 2018-04-12 17:12 | Progress Notes ---
DATE: SUBJECTIVE: Chart reviewed and the patient interviewed. Also discussed the patient's condition with the staff and reviewed records and labs. The patient is forgetful and she is still wandering up and down the unit and needs close monitoring and needs lots of redirections. The patient also is still agitated and she is still entering other patient's rooms and gets more agitated when staff tried to redirect her. Otherwise, the patient is compliant with taking her medications with no side effects of medications. ASSESSMENT: The patient is still agitated and needs monitoring. TREATMENT PLAN: Continue to monitoring behavior and adjusting psychotropic medications and work on behavioral modification. JOB# [id number]
--- NOTE | 2018-04-12 22:30 | Internal Medicine Prog Note ---
Internal Medicine Subjective - Subjective Service Date: 04/12/18 Patient seen and examined:: without staff Patient is:: awake, verbal, in bed, confused Per staff patient has:: no adverse event Internal Medicine Objective - Results Result Diagrams: 04/01/18 19:45 04/01/18 19:45 Recent Labs: Laboratory Last Values WBC 5.5 Th/cmm (4.8-10.8) 04/01/18 19:45 RBC 4.36 Mil/cmm (3.80-5.20) 04/01/18 19:45 Hgb 13.6 gm/dL (12-16) 04/01/18 19:45 Hct 41.3 % (41.0-60) 04/01/18 19:45 MCV 94.7 fl (81-100) 04/01/18 19:45 MCH 31.2 pg (27.0-31.0) H 04/01/18 19:45 MCHC Differential 32.9 pg (28.0-36.0) 04/01/18 19:45 RDW 13.5 % (11.5-20.0) 04/01/18 19:45 Plt Count 172 Th/cmm (150-400) 04/01/18 19:45 MPV 8.5 fl 04/01/18 19:45 Neutrophils % 61.2 % (40.0-80.0) 04/01/18 19:45 Lymphocytes % 25.4 % (20.0-50.0) 04/01/18 19:45 Monocytes % 7.6 % (2.0-10.0) 04/01/18 19:45 Eosinophils % 4.9 % (0.0-5.0) 04/01/18 19:45 Basophils % 0.9 % (0.0-2.0) 04/01/18 19:45 Sodium 137 mEq/L (136-145) 04/01/18 19:45 Potassium 3.5 mEq/L (3.5-5.1) 04/01/18 19:45 Chloride 104 mEq/L (98-107) 04/01/18 19:45 Carbon Dioxide 22.3 mEq/L (21.0-31.0) 04/01/18 19:45 Anion Gap 14.2 (7.0-16.0) 04/01/18 19:45 BUN 22 mg/dL (7-25) 04/01/18 19:45 Creatinine 0.7 mg/dL (0.6-1.2) 04/01/18 19:45 Est GFR ( Amer) TNP 04/01/18 19:45 Est GFR (Non-Af Amer) TNP 04/01/18 19:45 BUN/Creatinine Ratio 31.4 04/01/18 19:45 Glucose 111 mg/dL (70-105) H 04/01/18 19:45 Calcium 10.2 mg/dL (8.6-10.3) 04/01/18 19:45 Total Bilirubin 0.7 mg/dL (0.3-1.0) 04/01/18 19:45 AST 16 U/L (13-39) 04/01/18 19:45 ALT 8 U/L (7-52) 04/01/18 19:45 Alkaline Phosphatase 65 U/L (34-104) 04/01/18 19:45 Troponin I 0.14 ng/mL (0.01-0.05) H* 04/01/18 19:45 Total Protein 7.4 gm/dL (6.0-8.3) 04/01/18 19:45 Albumin 4.3 gm/dL (3.7-5.3) 04/01/18 19:45 Globulin 3.1 gm/dL 04/01/18 19:45 Albumin/Globulin Ratio 1.4 (1.0-1.8) 04/01/18 19:45 Triglycerides 54 mg/dL (<150) 04/01/18 19:45 Cholesterol 185 mg/dL (<200) 04/01/18 19:45 LDL Cholesterol Direct 121 mg/dL (75-193) 04/01/18 19:45 HDL Cholesterol 48 mg/dL (23-92) 04/01/18 19:45 TSH 0.23 uIU/ml (0.34-5.60) L 04/01/18 19:45 Salicylates < 25.0 mg/L (30.0-100.0) L 04/01/18 19:45 Acetaminophen < 10.0 ug/mL (10.0-30.0) L 04/01/18 19:45 Ethyl Alcohol < 10 mg/dL (0-10) 04/01/18 19:45 RPR NONREACTIVE (NONREACTIVE) 04/01/18 19:45 - Physical Exam Vitals and I&O: Vital Signs Temp 97 F 04/12/18 20:00 Pulse 79 04/12/18 20:00 Resp 18 04/12/18 20:00 BP 126/65 04/12/18 20:00 Pulse Ox 97 04/12/18 20:00 Intake & Output 04/12/18 04/12/18 04/13/18 06:59 18:59 06:59 Intake Total 1120 Balance 1120 Intake: Oral 1120 Other: # Voids 3 2 # Bowel Movements 1 0 Active Medications: Current Medications Acetaminophen (Tylenol) 650 mg PO Q6HR PRN PRN Reason: Pain or Fever >101 Stop: 06/01/18 03:26 Alendronate Sodium (Fosamax) 70 mg PO Q7D [facility] Stop: 06/02/18 06:29 Last Admin: 04/10/18 06:42 Dose: 70 mg Allopurinol (Zyloprim) 300 mg PO DAILY [facility] Stop: 06/01/18 08:59 Last Admin: 04/12/18 09:25 Dose: 300 mg Aripiprazole (Abilify) 2.5 mg PO DAILY [facility]; Protocol Stop: 06/02/18 16:59 Last Admin: 04/12/18 09:26 Dose: 2.5 mg Artificial Tears (Artificial Tears Ophth Soln) 1 drop EACH EYE BID [facility] Stop: 06/01/18 08:59 Last Admin: 04/12/18 17:35 Dose: 1 drop Aspirin (Ecotrin) 81 mg PO DAILY [facility] Stop: 06/01/18 08:59 Last Admin: 04/12/18 09:26 Dose: 81 mg Benazepril HCl (Lotensin) 5 mg PO BID [facility] Stop: 06/01/18 08:59 Last Admin: 04/12/18 17:34 Dose: 5 mg Calcium/Vitamin D (Oscal W/Vitamin D) 1 tab PO BID [facility] Stop: 06/01/18 08:59 Last Admin: 04/12/18 17:32 Dose: 1 tab Docusate Sodium (Colace) 100 mg PO BID [facility] Stop: 06/01/18 08:59 Last Admin: 04/12/18 17:32 Dose: 100 mg Donepezil HCl (Aricept) 10 mg PO HS [facility] Stop: 06/01/18 20:59 Last Admin: 04/12/18 20:41 Dose: 10 mg Furosemide (Lasix) 20 mg PO DAILY [facility] Stop: 06/01/18 08:59 Last Admin: 04/12/18 09:00 Dose: Not Given Guaifenesin/Dextromethorphan (Diabetic Tussin Dm Sugar Free) 5 ml PO Q6H PRN PRN Reason: Cough Stop: 06/01/18 03:26 Magnesium Hydroxide (Milk Of Magnesia) 30 ml PO HS PRN PRN Reason: Constipation Memantine (Namenda) 5 mg PO DAILY [facility] Stop: 06/06/18 08:59 Last Admin: 04/12/18 09:25 Dose: 5 mg Methimazole (Tapazole) 5 mg PO QDAC [facility] Stop: 06/01/18 07:29 Last Admin: 04/12/18 06:49 Dose: Not Given Miscellaneous (Paliperidone [Paliperidone Er]) 1.5 mg PO DAILY [facility] Stop: 06/02/18 08:59 Simvastatin (Zocor) 20 mg PO HS [facility]; Protocol Stop: 06/01/18 20:59 Last Admin: 04/12/18 20:40 Dose: 20 mg General: demented HEENT: NC/AT, PERRLA, EOMI, anicteric sclerae, throat clear Neck: Supple, No JVD, No thyromegaly, +2 carotid pulse wo bruit, No LAD Cardiovascular: RRR, Normal S1, Normal S2, without murmur Abdomen: soft, non-tender, non-distended Extremities: clear Neurological: no change Internal Medicine Assmt/Plan - Assessment Assessment: 1.HTN. 2.DM 3.HYPERLIPIDEMIA. 4.DEMENTIA. - Plan Plan: CONTINUE ON CURRENT MEDICATION AND DIET. Nutritional Asmnt/Malnutr-PDOC - Dietary Evaluation Malnutrition Findings (Please click <Entered> for more info): Nutritional Asmnt/Malnutrition Start: 04/06/18 14: 17 Text: Status: Complete Freq: Protocol: Document 04/06/18 14:18 GERMAINE (Rec: 04/06/18 14:39 GERMAINE DELAROSA) Nutritional Asmnt/Malnutrition Patient General Information Nutritional Screening Moderate Risk Diagnosis psychosis Pertinent Medical Hx/Surgical Hx HTN, DM, arthritis, dementia, depression, gout, hyperlipidemia, osteoporosis Subjective Information Pt was eating lunch in room at time of visit. Pt provided food preferences. Nursing noted intake: 50-75% average. Recorded wt has not changed from 04/01-04/05. Current Diet Order/ Nutrition Support CCHO 60 gm, low sodium Pertinent Medications oscal w/ vit D, colace, lasix, MOM Pertinent Labs 04/01: glucose 111 Nutritional Hx/Data Height 1.75 m Height (Calculated Centimeters) 175.3 Current Weight (lbs) 78.018 kg Weight (Calculated Kilograms) 78.0 Weight (Calculated Grams) 14184.9 [place] Body Weight 145 Body Mass Index (BMI) 25.4 Weight Status Overweight GI Symptoms GI Symptoms None Last BM 04/03 Difficult in: None Food Allergies No Skin Integrity/Comment: intact Current %PO Fair (50-74%) Estimated Nutritional Goals BEE in Kcals: Using Current wt Calories/Kcals/Kg 23-27 Kcals Calculated 4497-1833 Protein: Using Current wt Protein g/k.8-1 Protein Calculated 63-78 g Fluid: ml 3121-3832 Nutritional Problem No current Nutrition Prob Problem no nutrition diagnosis at this time Malnutrition Alert Is there a minimum of two criteria No selected? Query Text:Check all the applicable criteria. A minimum of two criteria are recommended for diagnosis of either severe or non-severe malnutrition. Malnutrition Related to Morbid Obesity Malnutrition related to morbid obesity No Intervention/Recommendation Comments 1. Continue with CCHO 60 gm, low sodium diet as ordered. Updated diet profile. 2. Encourage pt to eat and monitor PO intake, wt, labs and skin integrity 3. F/U as moderate risk in 3-5 days, 04/09-04/11 Expected Outcomes/Goals Expected Outcomes/Goals 1. PO intake to improve to at least 75% completed 2. Wt stability, skin to remain intact, improved glucose levels Reviewed by Sneha He
[2018-04-13] MEDS: Calcium Carb/Vit D 500 mg/200 U Tab PO SCH ×2 (09:55→16:59)
[2018-04-13] MEDS: Polyvinyl Alcohol Ophth Soln 15 mL Bottle EACH EYE SCH ×2 (09:59→19:08)
--- NOTE | 2018-04-13 17:46 | Internal Medicine Prog Note ---
Internal Medicine Subjective - Subjective Service Date: 04/13/18 Patient seen and examined:: with staff Patient is:: awake, verbal, in bed, confused Per staff patient has:: no adverse event Internal Medicine Objective - Results Result Diagrams: 04/01/18 19:45 04/01/18 19:45 Recent Labs: Laboratory Last Values WBC 5.5 Th/cmm (4.8-10.8) 04/01/18 19:45 RBC 4.36 Mil/cmm (3.80-5.20) 04/01/18 19:45 Hgb 13.6 gm/dL (12-16) 04/01/18 19:45 Hct 41.3 % (41.0-60) 04/01/18 19:45 MCV 94.7 fl (81-100) 04/01/18 19:45 MCH 31.2 pg (27.0-31.0) H 04/01/18 19:45 MCHC Differential 32.9 pg (28.0-36.0) 04/01/18 19:45 RDW 13.5 % (11.5-20.0) 04/01/18 19:45 Plt Count 172 Th/cmm (150-400) 04/01/18 19:45 MPV 8.5 fl 04/01/18 19:45 Neutrophils % 61.2 % (40.0-80.0) 04/01/18 19:45 Lymphocytes % 25.4 % (20.0-50.0) 04/01/18 19:45 Monocytes % 7.6 % (2.0-10.0) 04/01/18 19:45 Eosinophils % 4.9 % (0.0-5.0) 04/01/18 19:45 Basophils % 0.9 % (0.0-2.0) 04/01/18 19:45 Sodium 137 mEq/L (136-145) 04/01/18 19:45 Potassium 3.5 mEq/L (3.5-5.1) 04/01/18 19:45 Chloride 104 mEq/L (98-107) 04/01/18 19:45 Carbon Dioxide 22.3 mEq/L (21.0-31.0) 04/01/18 19:45 Anion Gap 14.2 (7.0-16.0) 04/01/18 19:45 BUN 22 mg/dL (7-25) 04/01/18 19:45 Creatinine 0.7 mg/dL (0.6-1.2) 04/01/18 19:45 Est GFR ( Amer) TNP 04/01/18 19:45 Est GFR (Non-Af Amer) TNP 04/01/18 19:45 BUN/Creatinine Ratio 31.4 04/01/18 19:45 Glucose 111 mg/dL (70-105) H 04/01/18 19:45 Calcium 10.2 mg/dL (8.6-10.3) 04/01/18 19:45 Total Bilirubin 0.7 mg/dL (0.3-1.0) 04/01/18 19:45 AST 16 U/L (13-39) 04/01/18 19:45 ALT 8 U/L (7-52) 04/01/18 19:45 Alkaline Phosphatase 65 U/L (34-104) 04/01/18 19:45 Troponin I 0.14 ng/mL (0.01-0.05) H* 04/01/18 19:45 Total Protein 7.4 gm/dL (6.0-8.3) 04/01/18 19:45 Albumin 4.3 gm/dL (3.7-5.3) 04/01/18 19:45 Globulin 3.1 gm/dL 04/01/18 19:45 Albumin/Globulin Ratio 1.4 (1.0-1.8) 04/01/18 19:45 Triglycerides 54 mg/dL (<150) 04/01/18 19:45 Cholesterol 185 mg/dL (<200) 04/01/18 19:45 LDL Cholesterol Direct 121 mg/dL (75-193) 04/01/18 19:45 HDL Cholesterol 48 mg/dL (23-92) 04/01/18 19:45 TSH 0.23 uIU/ml (0.34-5.60) L 04/01/18 19:45 Salicylates < 25.0 mg/L (30.0-100.0) L 04/01/18 19:45 Acetaminophen < 10.0 ug/mL (10.0-30.0) L 04/01/18 19:45 Ethyl Alcohol < 10 mg/dL (0-10) 04/01/18 19:45 RPR NONREACTIVE (NONREACTIVE) 04/01/18 19:45 - Physical Exam Vitals and I&O: Vital Signs Temp 98.2 F 04/13/18 14:00 Pulse 64 04/13/18 17:00 Resp 20 04/13/18 14:00 BP 137/75 04/13/18 17:00 Pulse Ox 96 04/13/18 14:00 Intake & Output 04/12/18 04/13/18 04/13/18 18:59 06:59 18:59 Intake Total 1620 Balance 1620 Intake: Oral 1620 Other: # Voids 2 3 # Bowel Movements 0 0 Active Medications: Current Medications Acetaminophen (Tylenol) 650 mg PO Q6HR PRN PRN Reason: Pain or Fever >101 Stop: 06/01/18 03:26 Alendronate Sodium (Fosamax) 70 mg PO Q7D [facility] Stop: 06/02/18 06:29 Last Admin: 04/10/18 06:42 Dose: 70 mg Allopurinol (Zyloprim) 300 mg PO DAILY [facility] Stop: 06/01/18 08:59 Last Admin: 04/13/18 09:54 Dose: 300 mg Aripiprazole (Abilify) 2.5 mg PO DAILY [facility]; Protocol Stop: 06/02/18 16:59 Last Admin: 04/13/18 09:56 Dose: 2.5 mg Artificial Tears (Artificial Tears Ophth Soln) 1 drop EACH EYE BID [facility] Stop: 06/01/18 08:59 Last Admin: 04/13/18 09:59 Dose: 1 drop Aspirin (Ecotrin) 81 mg PO DAILY [facility] Stop: 06/01/18 08:59 Last Admin: 04/13/18 09:54 Dose: 81 mg Benazepril HCl (Lotensin) 5 mg PO BID [facility] Stop: 06/01/18 08:59 Last Admin: 04/13/18 17:00 Dose: 5 mg Calcium/Vitamin D (Oscal W/Vitamin D) 1 tab PO BID [facility] Stop: 06/01/18 08:59 Last Admin: 04/13/18 16:59 Dose: 1 tab Docusate Sodium (Colace) 100 mg PO BID [facility] Stop: 06/01/18 08:59 Last Admin: 04/13/18 16:59 Dose: 100 mg Donepezil HCl (Aricept) 10 mg PO HS [facility] Stop: 06/01/18 20:59 Last Admin: 04/12/18 20:41 Dose: 10 mg Furosemide (Lasix) 20 mg PO DAILY [facility] Stop: 06/01/18 08:59 Last Admin: 04/13/18 09:55 Dose: 20 mg Guaifenesin/Dextromethorphan (Diabetic Tussin Dm Sugar Free) 5 ml PO Q6H PRN PRN Reason: Cough Stop: 06/01/18 03:26 Magnesium Hydroxide (Milk Of Magnesia) 30 ml PO HS PRN PRN Reason: Constipation Memantine (Namenda) 5 mg PO DAILY [facility] Stop: 06/06/18 08:59 Last Admin: 04/13/18 09:54 Dose: 5 mg Methimazole (Tapazole) 5 mg PO QDAC [facility] Stop: 06/01/18 07:29 Last Admin: 04/13/18 06:41 Dose: 5 mg Miscellaneous (Paliperidone [Paliperidone Er]) 1.5 mg PO DAILY [facility] Stop: 06/02/18 08:59 Simvastatin (Zocor) 20 mg PO HS [facility]; Protocol Stop: 06/01/18 20:59 Last Admin: 04/12/18 20:40 Dose: 20 mg General: demented HEENT: NC/AT, PERRLA, EOMI, anicteric sclerae, throat clear Neck: Supple, No JVD, No thyromegaly, +2 carotid pulse wo bruit, No LAD Cardiovascular: RRR, Normal S1, Normal S2, without murmur Abdomen: soft, non-tender, non-distended Extremities: clear Neurological: no change Internal Medicine Assmt/Plan - Assessment Assessment: 1.HTN. 2.DM 3.HYPERLIPIDEMIA. 4.DEMENTIA. - Plan Plan: CONTINUE ON CURRENT MEDICATION AND DIET. Nutritional Asmnt/Malnutr-PDOC - Dietary Evaluation Malnutrition Findings (Please click <Entered> for more info): Nutritional Asmnt/Malnutrition Start: 04/06/18 14: 17 Text: Status: Complete Freq: Protocol: Document 04/06/18 14:18 GERMAINE (Rec: 04/06/18 14:39 GERMAINE DELAROSA) Nutritional Asmnt/Malnutrition Patient General Information Nutritional Screening Moderate Risk Diagnosis psychosis Pertinent Medical Hx/Surgical Hx HTN, DM, arthritis, dementia, depression, gout, hyperlipidemia, osteoporosis Subjective Information Pt was eating lunch in room at time of visit. Pt provided food preferences. Nursing noted intake: 50-75% average. Recorded wt has not changed from 04/01-04/05. Current Diet Order/ Nutrition Support CCHO 60 gm, low sodium Pertinent Medications oscal w/ vit D, colace, lasix, MOM Pertinent Labs 04/01: glucose 111 Nutritional Hx/Data Height 1.75 m Height (Calculated Centimeters) 175.3 Current Weight (lbs) 78.018 kg Weight (Calculated Kilograms) 78.0 Weight (Calculated Grams) 92716.9 [place] Body Weight 145 Body Mass Index (BMI) 25.4 Weight Status Overweight GI Symptoms GI Symptoms None Last BM 04/03 Difficult in: None Food Allergies No Skin Integrity/Comment: intact Current %PO Fair (50-74%) Estimated Nutritional Goals BEE in Kcals: Using Current wt Calories/Kcals/Kg 23-27 Kcals Calculated 9236-4720 Protein: Using Current wt Protein g/k.8-1 Protein Calculated 63-78 g Fluid: ml [id number] Nutritional Problem No current Nutrition Prob Problem no nutrition diagnosis at this time Malnutrition Alert Is there a minimum of two criteria No selected? Query Text:Check all the applicable criteria. A minimum of two criteria are recommended for diagnosis of either severe or non-severe malnutrition. Malnutrition Related to Morbid Obesity Malnutrition related to morbid obesity No Intervention/Recommendation Comments 1. Continue with CCHO 60 gm, low sodium diet as ordered. Updated diet profile. 2. Encourage pt to eat and monitor PO intake, wt, labs and skin integrity 3. F/U as moderate risk in 3-5 days, 04/09-04/11 Expected Outcomes/Goals Expected Outcomes/Goals 1. PO intake to improve to at least 75% completed 2. Wt stability, skin to remain intact, improved glucose levels Reviewed by Sneha He
--- NOTE | 2018-04-13 20:10 | Progress Notes ---
DATE: 04/13/2018 SUBJECTIVE: Case was discussed with staff of the patient, reviewed records. The patient continues to be confused. She continues to need redirection. She continues to have episodes of agitation. She continues to need a lot of supervision and help with her ADLs. She is compliant with the medication with no side effects, no sedation, no nausea, and no extrapyramidal symptoms. She was initiated on Namenda 5 mg daily. She is also on Aricept 5 mg at bedtime. We will continue to work with the patient in group therapy, milieu therapy, and adjust the medications as needed. JOB# [id number]
[2018-04-14] MEDS: Polyvinyl Alcohol Ophth Soln 15 mL Bottle EACH EYE SCH ×3 (09:00→18:36)
[2018-04-14] MEDS: Calcium Carb/Vit D 500 mg/200 U Tab PO SCH ×2 (09:19→18:35)
--- NOTE | 2018-04-14 20:53 | Internal Medicine Prog Note ---
Internal Medicine Subjective - Subjective Service Date: 04/14/18 Patient seen and examined:: with staff Patient is:: awake, verbal, in bed, confused Per staff patient has:: no adverse event Internal Medicine Objective - Results Result Diagrams: 04/01/18 19:45 04/01/18 19:45 Recent Labs: Laboratory Last Values WBC 5.5 Th/cmm (4.8-10.8) 04/01/18 19:45 RBC 4.36 Mil/cmm (3.80-5.20) 04/01/18 19:45 Hgb 13.6 gm/dL (12-16) 04/01/18 19:45 Hct 41.3 % (41.0-60) 04/01/18 19:45 MCV 94.7 fl (81-100) 04/01/18 19:45 MCH 31.2 pg (27.0-31.0) H 04/01/18 19:45 MCHC Differential 32.9 pg (28.0-36.0) 04/01/18 19:45 RDW 13.5 % (11.5-20.0) 04/01/18 19:45 Plt Count 172 Th/cmm (150-400) 04/01/18 19:45 MPV 8.5 fl 04/01/18 19:45 Neutrophils % 61.2 % (40.0-80.0) 04/01/18 19:45 Lymphocytes % 25.4 % (20.0-50.0) 04/01/18 19:45 Monocytes % 7.6 % (2.0-10.0) 04/01/18 19:45 Eosinophils % 4.9 % (0.0-5.0) 04/01/18 19:45 Basophils % 0.9 % (0.0-2.0) 04/01/18 19:45 Sodium 137 mEq/L (136-145) 04/01/18 19:45 Potassium 3.5 mEq/L (3.5-5.1) 04/01/18 19:45 Chloride 104 mEq/L (98-107) 04/01/18 19:45 Carbon Dioxide 22.3 mEq/L (21.0-31.0) 04/01/18 19:45 Anion Gap 14.2 (7.0-16.0) 04/01/18 19:45 BUN 22 mg/dL (7-25) 04/01/18 19:45 Creatinine 0.7 mg/dL (0.6-1.2) 04/01/18 19:45 Est GFR ( Amer) TNP 04/01/18 19:45 Est GFR (Non-Af Amer) TNP 04/01/18 19:45 BUN/Creatinine Ratio 31.4 04/01/18 19:45 Glucose 111 mg/dL (70-105) H 04/01/18 19:45 Calcium 10.2 mg/dL (8.6-10.3) 04/01/18 19:45 Total Bilirubin 0.7 mg/dL (0.3-1.0) 04/01/18 19:45 AST 16 U/L (13-39) 04/01/18 19:45 ALT 8 U/L (7-52) 04/01/18 19:45 Alkaline Phosphatase 65 U/L (34-104) 04/01/18 19:45 Troponin I 0.14 ng/mL (0.01-0.05) H* 04/01/18 19:45 Total Protein 7.4 gm/dL (6.0-8.3) 04/01/18 19:45 Albumin 4.3 gm/dL (3.7-5.3) 04/01/18 19:45 Globulin 3.1 gm/dL 04/01/18 19:45 Albumin/Globulin Ratio 1.4 (1.0-1.8) 04/01/18 19:45 Triglycerides 54 mg/dL (<150) 04/01/18 19:45 Cholesterol 185 mg/dL (<200) 04/01/18 19:45 LDL Cholesterol Direct 121 mg/dL (75-193) 04/01/18 19:45 HDL Cholesterol 48 mg/dL (23-92) 04/01/18 19:45 TSH 0.23 uIU/ml (0.34-5.60) L 04/01/18 19:45 Salicylates < 25.0 mg/L (30.0-100.0) L 04/01/18 19:45 Acetaminophen < 10.0 ug/mL (10.0-30.0) L 04/01/18 19:45 Ethyl Alcohol < 10 mg/dL (0-10) 04/01/18 19:45 RPR NONREACTIVE (NONREACTIVE) 04/01/18 19:45 - Physical Exam Vitals and I&O: Vital Signs Temp 97.1 F 04/14/18 20:45 Pulse 62 04/14/18 20:45 Resp 19 04/14/18 20:45 BP 116/49 04/14/18 20:45 Pulse Ox 98 04/14/18 20:45 Intake & Output 04/14/18 04/14/18 04/15/18 06:59 18:59 06:59 Intake Total 1500 180 Balance 1500 180 Intake: Oral 1500 180 Other: # Voids 3 2 # Bowel Movements 0 0 Active Medications: Current Medications Acetaminophen (Tylenol) 650 mg PO Q6HR PRN PRN Reason: Pain or Fever >101 Stop: 06/01/18 03:26 Alendronate Sodium (Fosamax) 70 mg PO Q7D [facility] Stop: 06/02/18 06:29 Last Admin: 04/10/18 06:42 Dose: 70 mg Allopurinol (Zyloprim) 300 mg PO DAILY [facility] Stop: 06/01/18 08:59 Last Admin: 04/14/18 09:18 Dose: 300 mg Aripiprazole (Abilify) 2.5 mg PO DAILY [facility]; Protocol Stop: 06/02/18 16:59 Last Admin: 04/14/18 09:27 Dose: 2.5 mg Artificial Tears (Artificial Tears Ophth Soln) 1 drop EACH EYE BID [facility] Stop: 06/01/18 08:59 Last Admin: 04/14/18 18:36 Dose: 1 drop Aspirin (Ecotrin) 81 mg PO DAILY [facility] Stop: 06/01/18 08:59 Last Admin: 04/14/18 09:19 Dose: 81 mg Benazepril HCl (Lotensin) 5 mg PO BID [facility] Stop: 06/01/18 08:59 Last Admin: 04/14/18 18:35 Dose: Not Given Calcium/Vitamin D (Oscal W/Vitamin D) 1 tab PO BID [facility] Stop: 06/01/18 08:59 Last Admin: 04/14/18 18:35 Dose: 1 tab Docusate Sodium (Colace) 100 mg PO BID [facility] Stop: 06/01/18 08:59 Last Admin: 04/14/18 18:35 Dose: 100 mg Donepezil HCl (Aricept) 10 mg PO HS [facility] Stop: 06/01/18 20:59 Last Admin: 04/14/18 20:38 Dose: 10 mg Furosemide (Lasix) 20 mg PO DAILY [facility] Stop: 06/01/18 08:59 Last Admin: 04/14/18 09:29 Dose: 20 mg Guaifenesin/Dextromethorphan (Diabetic Tussin Dm Sugar Free) 5 ml PO Q6H PRN PRN Reason: Cough Stop: 06/01/18 03:26 Magnesium Hydroxide (Milk Of Magnesia) 30 ml PO HS PRN PRN Reason: Constipation Memantine (Namenda) 5 mg PO BID [facility] Stop: 06/13/18 16:59 Last Admin: 04/14/18 18:35 Dose: 5 mg Methimazole (Tapazole) 5 mg PO QDAC [facility] Stop: 06/01/18 07:29 Last Admin: 04/14/18 06:55 Dose: 5 mg Miscellaneous (Paliperidone [Paliperidone Er]) 1.5 mg PO DAILY [facility] Stop: 06/02/18 08:59 Simvastatin (Zocor) 20 mg PO HS [facility]; Protocol Stop: 06/01/18 20:59 Last Admin: 04/14/18 20:38 Dose: 20 mg General: demented HEENT: NC/AT, PERRLA, EOMI, anicteric sclerae, throat clear Neck: Supple, No JVD, No thyromegaly, +2 carotid pulse wo bruit, No LAD Cardiovascular: RRR, Normal S1, Normal S2, without murmur Abdomen: soft, non-tender, non-distended Extremities: clear Neurological: no change Internal Medicine Assmt/Plan - Assessment Assessment: 1.HTN. 2.DM 3.HYPERLIPIDEMIA. 4.DEMENTIA. - Plan Plan: CONTINUE ON CURRENT MEDICATION AND DIET. Nutritional Asmnt/Malnutr-PDOC - Dietary Evaluation Malnutrition Findings (Please click <Entered> for more info): Nutritional Asmnt/Malnutrition Start: 04/06/18 14: 17 Text: Status: Complete Freq: Protocol: Document 04/06/18 14:18 GERMAINE (Rec: 04/06/18 14:39 GERMAINE DELAROSA) Nutritional Asmnt/Malnutrition Patient General Information Nutritional Screening Moderate Risk Diagnosis psychosis Pertinent Medical Hx/Surgical Hx HTN, DM, arthritis, dementia, depression, gout, hyperlipidemia, osteoporosis Subjective Information Pt was eating lunch in room at time of visit. Pt provided food preferences. Nursing noted intake: 50-75% average. Recorded wt has not changed from 04/01-04/05. Current Diet Order/ Nutrition Support CCHO 60 gm, low sodium Pertinent Medications oscal w/ vit D, colace, lasix, MOM Pertinent Labs 04/01: glucose 111 Nutritional Hx/Data Height 1.75 m Height (Calculated Centimeters) 175.3 Current Weight (lbs) 78.018 kg Weight (Calculated Kilograms) 78.0 Weight (Calculated Grams) 49713.9 [place] Body Weight 145 Body Mass Index (BMI) 25.4 Weight Status Overweight GI Symptoms GI Symptoms None Last BM 04/03 Difficult in: None Food Allergies No Skin Integrity/Comment: intact Current %PO Fair (50-74%) Estimated Nutritional Goals BEE in Kcals: Using Current wt Calories/Kcals/Kg 23-27 Kcals Calculated 5777-0008 Protein: Using Current wt Protein g/k.8-1 Protein Calculated 63-78 g Fluid: ml 3662-5278 Nutritional Problem No current Nutrition Prob Problem no nutrition diagnosis at this time Malnutrition Alert Is there a minimum of two criteria No selected? Query Text:Check all the applicable criteria. A minimum of two criteria are recommended for diagnosis of either severe or non-severe malnutrition. Malnutrition Related to Morbid Obesity Malnutrition related to morbid obesity No Intervention/Recommendation Comments 1. Continue with CCHO 60 gm, low sodium diet as ordered. Updated diet profile. 2. Encourage pt to eat and monitor PO intake, wt, labs and skin integrity 3. F/U as moderate risk in 3-5 days, 04/09-04/11 Expected Outcomes/Goals Expected Outcomes/Goals 1. PO intake to improve to at least 75% completed 2. Wt stability, skin to remain intact, improved glucose levels Reviewed by Sneha He
--- NOTE | 2018-04-14 21:59 | Progress Notes ---
DATE: 04/14/2018 Case was discussed with staff of the patient, reviewed records. The patient continues to be confused and demented. She has been intrusive, taking other patients belongings because of her confusion and dementia. She was started on Namenda on 04/07/2018. I will be increasing the dose to twice a day. She is currently on 5 mg daily and so far no side effects with the medication, no sedation, no nausea, no extrapyramidal symptoms. She is on Abilify 2.5 mg daily. Her lab work showed CBC with high MCH, the rest within normal range. Chemistry panel with high blood sugar and high troponin 0.14 and low TSH for which I will be consulting with the medical doctor. RPR is nonreactive. Now, we will consider outpatient group therapy, milieu therapy, and adjust the medication as needed. JOB# [id number]
--- NOTE | 2018-04-15 11:07 | Progress Notes ---
DATE: 04/15/2018 Case was discussed with staff of the patient, reviewed records. The patient continues to be confused, demented, needing redirection, easily agitated, continues to have poor insight. Continues to be unable to participate in a meaningful conversation or make safe plan for self-care. Tolerating increase in her Namenda dose to 5 mg twice a day yesterday with no side effects. No sedation, no nausea, no extrapyramidal symptoms. She is on Abilify. Also, I asked the staff to make sure Dr. Orellana knows about low TSH to address it and we will continue the patient in group therapy, milieu therapy and adjust medications as needed. JOB# [id number]
[2018-04-15] MEDS: Calcium Carb/Vit D 500 mg/200 U Tab PO SCH ×2 (11:19→16:54)
[2018-04-15] MEDS: Polyvinyl Alcohol Ophth Soln 15 mL Bottle EACH EYE SCH ×2 (11:20→16:54)
--- NOTE | 2018-04-15 19:59 | Internal Medicine Prog Note ---
Internal Medicine Subjective - Subjective Service Date: 04/15/18 Patient seen and examined:: with staff Patient is:: awake, verbal, in bed, confused Per staff patient has:: no adverse event Internal Medicine Objective - Results Result Diagrams: 04/01/18 19:45 04/01/18 19:45 Recent Labs: Laboratory Last Values WBC 5.5 Th/cmm (4.8-10.8) 04/01/18 19:45 RBC 4.36 Mil/cmm (3.80-5.20) 04/01/18 19:45 Hgb 13.6 gm/dL (12-16) 04/01/18 19:45 Hct 41.3 % (41.0-60) 04/01/18 19:45 MCV 94.7 fl (81-100) 04/01/18 19:45 MCH 31.2 pg (27.0-31.0) H 04/01/18 19:45 MCHC Differential 32.9 pg (28.0-36.0) 04/01/18 19:45 RDW 13.5 % (11.5-20.0) 04/01/18 19:45 Plt Count 172 Th/cmm (150-400) 04/01/18 19:45 MPV 8.5 fl 04/01/18 19:45 Neutrophils % 61.2 % (40.0-80.0) 04/01/18 19:45 Lymphocytes % 25.4 % (20.0-50.0) 04/01/18 19:45 Monocytes % 7.6 % (2.0-10.0) 04/01/18 19:45 Eosinophils % 4.9 % (0.0-5.0) 04/01/18 19:45 Basophils % 0.9 % (0.0-2.0) 04/01/18 19:45 Sodium 137 mEq/L (136-145) 04/01/18 19:45 Potassium 3.5 mEq/L (3.5-5.1) 04/01/18 19:45 Chloride 104 mEq/L (98-107) 04/01/18 19:45 Carbon Dioxide 22.3 mEq/L (21.0-31.0) 04/01/18 19:45 Anion Gap 14.2 (7.0-16.0) 04/01/18 19:45 BUN 22 mg/dL (7-25) 04/01/18 19:45 Creatinine 0.7 mg/dL (0.6-1.2) 04/01/18 19:45 Est GFR ( Amer) TNP 04/01/18 19:45 Est GFR (Non-Af Amer) TNP 04/01/18 19:45 BUN/Creatinine Ratio 31.4 04/01/18 19:45 Glucose 111 mg/dL (70-105) H 04/01/18 19:45 Calcium 10.2 mg/dL (8.6-10.3) 04/01/18 19:45 Total Bilirubin 0.7 mg/dL (0.3-1.0) 04/01/18 19:45 AST 16 U/L (13-39) 04/01/18 19:45 ALT 8 U/L (7-52) 04/01/18 19:45 Alkaline Phosphatase 65 U/L (34-104) 04/01/18 19:45 Troponin I 0.14 ng/mL (0.01-0.05) H* 04/01/18 19:45 Total Protein 7.4 gm/dL (6.0-8.3) 04/01/18 19:45 Albumin 4.3 gm/dL (3.7-5.3) 04/01/18 19:45 Globulin 3.1 gm/dL 04/01/18 19:45 Albumin/Globulin Ratio 1.4 (1.0-1.8) 04/01/18 19:45 Triglycerides 54 mg/dL (<150) 04/01/18 19:45 Cholesterol 185 mg/dL (<200) 04/01/18 19:45 LDL Cholesterol Direct 121 mg/dL (75-193) 04/01/18 19:45 HDL Cholesterol 48 mg/dL (23-92) 04/01/18 19:45 TSH 0.23 uIU/ml (0.34-5.60) L 04/01/18 19:45 Salicylates < 25.0 mg/L (30.0-100.0) L 04/01/18 19:45 Acetaminophen < 10.0 ug/mL (10.0-30.0) L 04/01/18 19:45 Ethyl Alcohol < 10 mg/dL (0-10) 04/01/18 19:45 RPR NONREACTIVE (NONREACTIVE) 04/01/18 19:45 - Physical Exam Vitals and I&O: Vital Signs Temp 97.8 F 04/15/18 14:00 Pulse 68 04/15/18 16:50 Resp 20 04/15/18 14:00 BP 105/58 04/15/18 16:50 Pulse Ox 96 04/15/18 14:00 Intake & Output 04/15/18 04/15/18 04/16/18 06:59 18:59 06:59 Intake Total 180 1200 Balance 180 1200 Intake: Oral 180 1200 Other: # Voids 2 # Bowel Movements 0 1 Active Medications: Current Medications Acetaminophen (Tylenol) 650 mg PO Q6HR PRN PRN Reason: Pain or Fever >101 Stop: 06/01/18 03:26 Alendronate Sodium (Fosamax) 70 mg PO Q7D [facility] Stop: 06/02/18 06:29 Last Admin: 04/10/18 06:42 Dose: 70 mg Allopurinol (Zyloprim) 300 mg PO DAILY [facility] Stop: 06/01/18 08:59 Last Admin: 04/15/18 11:13 Dose: 300 mg Aripiprazole (Abilify) 2.5 mg PO DAILY [facility]; Protocol Stop: 06/02/18 16:59 Last Admin: 04/15/18 09:39 Dose: 2.5 mg Artificial Tears (Artificial Tears Ophth Soln) 1 drop EACH EYE BID [facility] Stop: 06/01/18 08:59 Last Admin: 04/15/18 16:54 Dose: 1 drop Aspirin (Ecotrin) 81 mg PO DAILY [facility] Stop: 06/01/18 08:59 Last Admin: 04/15/18 11:19 Dose: 81 mg Benazepril HCl (Lotensin) 5 mg PO BID [facility] Stop: 06/01/18 08:59 Last Admin: 04/15/18 16:50 Dose: Not Given Calcium/Vitamin D (Oscal W/Vitamin D) 1 tab PO BID [facility] Stop: 06/01/18 08:59 Last Admin: 04/15/18 16:54 Dose: 1 tab Docusate Sodium (Colace) 100 mg PO BID [facility] Stop: 06/01/18 08:59 Last Admin: 04/15/18 16:54 Dose: 100 mg Donepezil HCl (Aricept) 10 mg PO HS [facility] Stop: 06/01/18 20:59 Last Admin: 04/14/18 20:38 Dose: 10 mg Furosemide (Lasix) 20 mg PO DAILY [facility] Stop: 06/01/18 08:59 Last Admin: 04/15/18 11:19 Dose: 20 mg Guaifenesin/Dextromethorphan (Diabetic Tussin Dm Sugar Free) 5 ml PO Q6H PRN PRN Reason: Cough Stop: 06/01/18 03:26 Magnesium Hydroxide (Milk Of Magnesia) 30 ml PO HS PRN PRN Reason: Constipation Memantine (Namenda) 5 mg PO BID [facility] Stop: 06/13/18 16:59 Last Admin: 04/15/18 16:54 Dose: 5 mg Methimazole (Tapazole) 5 mg PO QDAC [facility] Stop: 06/01/18 07:29 Last Admin: 04/15/18 06:47 Dose: 5 mg Miscellaneous (Paliperidone [Paliperidone Er]) 1.5 mg PO DAILY [facility] Stop: 06/02/18 08:59 Simvastatin (Zocor) 20 mg PO HS [facility]; Protocol Stop: 06/01/18 20:59 Last Admin: 04/14/18 20:38 Dose: 20 mg General: demented HEENT: NC/AT, PERRLA, EOMI, anicteric sclerae, throat clear Neck: Supple, No JVD, No thyromegaly, +2 carotid pulse wo bruit, No LAD Cardiovascular: RRR, Normal S1, Normal S2, without murmur Abdomen: soft, non-tender, non-distended Extremities: clear Neurological: no change Internal Medicine Assmt/Plan - Assessment Assessment: 1.HTN. 2.DM 3.HYPERLIPIDEMIA. 4.DEMENTIA. - Plan Plan: CONTINUE ON CURRENT MEDICATION AND DIET. Nutritional Asmnt/Malnutr-PDOC - Dietary Evaluation Malnutrition Findings (Please click <Entered> for more info): Nutritional Asmnt/Malnutrition Start: 04/06/18 14: 17 Text: Status: Complete Freq: Protocol: Document 04/06/18 14:18 GERMAINE (Rec: 04/06/18 14:39 GERMAINE DELAROSA) Nutritional Asmnt/Malnutrition Patient General Information Nutritional Screening Moderate Risk Diagnosis psychosis Pertinent Medical Hx/Surgical Hx HTN, DM, arthritis, dementia, depression, gout, hyperlipidemia, osteoporosis Subjective Information Pt was eating lunch in room at time of visit. Pt provided food preferences. Nursing noted intake: 50-75% average. Recorded wt has not changed from 04/01-04/05. Current Diet Order/ Nutrition Support CCHO 60 gm, low sodium Pertinent Medications oscal w/ vit D, colace, lasix, MOM Pertinent Labs 04/01: glucose 111 Nutritional Hx/Data Height 1.75 m Height (Calculated Centimeters) 175.3 Current Weight (lbs) 78.018 kg Weight (Calculated Kilograms) 78.0 Weight (Calculated Grams) 35610.9 [place] Body Weight 145 Body Mass Index (BMI) 25.4 Weight Status Overweight GI Symptoms GI Symptoms None Last BM 04/03 Difficult in: None Food Allergies No Skin Integrity/Comment: intact Current %PO Fair (50-74%) Estimated Nutritional Goals BEE in Kcals: Using Current wt Calories/Kcals/Kg 23-27 Kcals Calculated 2759-4463 Protein: Using Current wt Protein g/k.8-1 Protein Calculated 63-78 g Fluid: ml 8070-2386 Nutritional Problem No current Nutrition Prob Problem no nutrition diagnosis at this time Malnutrition Alert Is there a minimum of two criteria No selected? Query Text:Check all the applicable criteria. A minimum of two criteria are recommended for diagnosis of either severe or non-severe malnutrition. Malnutrition Related to Morbid Obesity Malnutrition related to morbid obesity No Intervention/Recommendation Comments 1. Continue with CCHO 60 gm, low sodium diet as ordered. Updated diet profile. 2. Encourage pt to eat and monitor PO intake, wt, labs and skin integrity 3. F/U as moderate risk in 3-5 days, 04/09-04/11 Expected Outcomes/Goals Expected Outcomes/Goals 1. PO intake to improve to at least 75% completed 2. Wt stability, skin to remain intact, improved glucose levels Reviewed by Sneha He
[2018-04-16] MEDS: Calcium Carb/Vit D 500 mg/200 U Tab PO SCH ×2 (08:36→16:52)
[2018-04-16] MEDS: Polyvinyl Alcohol Ophth Soln 15 mL Bottle EACH EYE SCH ×2 (08:45→16:52)
--- NOTE | 2018-04-16 19:35 | Internal Medicine Prog Note ---
Internal Medicine Subjective - Subjective Service Date: 04/16/18 Patient seen and examined:: with staff Patient is:: awake, verbal, in bed, confused Per staff patient has:: no adverse event Internal Medicine Objective - Results Result Diagrams: 04/01/18 19:45 04/01/18 19:45 Recent Labs: Laboratory Last Values WBC 5.5 Th/cmm (4.8-10.8) 04/01/18 19:45 RBC 4.36 Mil/cmm (3.80-5.20) 04/01/18 19:45 Hgb 13.6 gm/dL (12-16) 04/01/18 19:45 Hct 41.3 % (41.0-60) 04/01/18 19:45 MCV 94.7 fl (81-100) 04/01/18 19:45 MCH 31.2 pg (27.0-31.0) H 04/01/18 19:45 MCHC Differential 32.9 pg (28.0-36.0) 04/01/18 19:45 RDW 13.5 % (11.5-20.0) 04/01/18 19:45 Plt Count 172 Th/cmm (150-400) 04/01/18 19:45 MPV 8.5 fl 04/01/18 19:45 Neutrophils % 61.2 % (40.0-80.0) 04/01/18 19:45 Lymphocytes % 25.4 % (20.0-50.0) 04/01/18 19:45 Monocytes % 7.6 % (2.0-10.0) 04/01/18 19:45 Eosinophils % 4.9 % (0.0-5.0) 04/01/18 19:45 Basophils % 0.9 % (0.0-2.0) 04/01/18 19:45 Sodium 137 mEq/L (136-145) 04/01/18 19:45 Potassium 3.5 mEq/L (3.5-5.1) 04/01/18 19:45 Chloride 104 mEq/L (98-107) 04/01/18 19:45 Carbon Dioxide 22.3 mEq/L (21.0-31.0) 04/01/18 19:45 Anion Gap 14.2 (7.0-16.0) 04/01/18 19:45 BUN 22 mg/dL (7-25) 04/01/18 19:45 Creatinine 0.7 mg/dL (0.6-1.2) 04/01/18 19:45 Est GFR ( Amer) TNP 04/01/18 19:45 Est GFR (Non-Af Amer) TNP 04/01/18 19:45 BUN/Creatinine Ratio 31.4 04/01/18 19:45 Glucose 111 mg/dL (70-105) H 04/01/18 19:45 Calcium 10.2 mg/dL (8.6-10.3) 04/01/18 19:45 Total Bilirubin 0.7 mg/dL (0.3-1.0) 04/01/18 19:45 AST 16 U/L (13-39) 04/01/18 19:45 ALT 8 U/L (7-52) 04/01/18 19:45 Alkaline Phosphatase 65 U/L (34-104) 04/01/18 19:45 Troponin I 0.14 ng/mL (0.01-0.05) H* 04/01/18 19:45 Total Protein 7.4 gm/dL (6.0-8.3) 04/01/18 19:45 Albumin 4.3 gm/dL (3.7-5.3) 04/01/18 19:45 Globulin 3.1 gm/dL 04/01/18 19:45 Albumin/Globulin Ratio 1.4 (1.0-1.8) 04/01/18 19:45 Triglycerides 54 mg/dL (<150) 04/01/18 19:45 Cholesterol 185 mg/dL (<200) 04/01/18 19:45 LDL Cholesterol Direct 121 mg/dL (75-193) 04/01/18 19:45 HDL Cholesterol 48 mg/dL (23-92) 04/01/18 19:45 TSH 0.23 uIU/ml (0.34-5.60) L 04/01/18 19:45 Salicylates < 25.0 mg/L (30.0-100.0) L 04/01/18 19:45 Acetaminophen < 10.0 ug/mL (10.0-30.0) L 04/01/18 19:45 Ethyl Alcohol < 10 mg/dL (0-10) 04/01/18 19:45 RPR NONREACTIVE (NONREACTIVE) 04/01/18 19:45 - Physical Exam Vitals and I&O: Vital Signs Temp 98.6 F 04/16/18 14:00 Pulse 66 04/16/18 16:52 Resp 20 04/16/18 14:00 BP 138/67 04/16/18 16:52 Pulse Ox 97 04/16/18 14:00 Intake & Output 04/16/18 04/16/18 04/17/18 06:59 18:59 06:59 Intake Total 120 960 Balance 120 960 Intake: Oral 120 960 Other: # Voids 3 4 # Bowel Movements 0 Active Medications: Current Medications Acetaminophen (Tylenol) 650 mg PO Q6HR PRN PRN Reason: Pain or Fever >101 Stop: 06/01/18 03:26 Alendronate Sodium (Fosamax) 70 mg PO Q7D [facility] Stop: 06/02/18 06:29 Last Admin: 04/10/18 06:42 Dose: 70 mg Allopurinol (Zyloprim) 300 mg PO DAILY [facility] Stop: 06/01/18 08:59 Last Admin: 04/16/18 08:33 Dose: 300 mg Aripiprazole (Abilify) 2.5 mg PO DAILY [facility]; Protocol Stop: 06/02/18 16:59 Last Admin: 04/16/18 08:46 Dose: 2.5 mg Artificial Tears (Artificial Tears Ophth Soln) 1 drop EACH EYE BID [facility] Stop: 06/01/18 08:59 Last Admin: 04/16/18 16:52 Dose: 1 drop Aspirin (Ecotrin) 81 mg PO DAILY [facility] Stop: 06/01/18 08:59 Last Admin: 04/16/18 08:36 Dose: 81 mg Benazepril HCl (Lotensin) 5 mg PO BID [facility] Stop: 06/01/18 08:59 Last Admin: 04/16/18 16:52 Dose: 5 mg Calcium/Vitamin D (Oscal W/Vitamin D) 1 tab PO BID [facility] Stop: 06/01/18 08:59 Last Admin: 04/16/18 16:52 Dose: 1 tab Docusate Sodium (Colace) 100 mg PO BID [facility] Stop: 06/01/18 08:59 Last Admin: 04/16/18 16:52 Dose: 100 mg Donepezil HCl (Aricept) 10 mg PO HS [facility] Stop: 06/01/18 20:59 Last Admin: 04/15/18 21:00 Dose: 10 mg Furosemide (Lasix) 20 mg PO DAILY [facility] Stop: 06/01/18 08:59 Last Admin: 04/16/18 08:39 Dose: 20 mg Guaifenesin/Dextromethorphan (Diabetic Tussin Dm Sugar Free) 5 ml PO Q6H PRN PRN Reason: Cough Stop: 06/01/18 03:26 Magnesium Hydroxide (Milk Of Magnesia) 30 ml PO HS PRN PRN Reason: Constipation Memantine (Namenda) 5 mg PO BID [facility] Stop: 06/13/18 16:59 Last Admin: 04/16/18 16:52 Dose: 5 mg Methimazole (Tapazole) 5 mg PO QDAC [facility] Stop: 06/01/18 07:29 Last Admin: 04/16/18 06:43 Dose: 5 mg Simvastatin (Zocor) 20 mg PO HS [facility]; Protocol Stop: 06/01/18 20:59 Last Admin: 04/15/18 21:00 Dose: 20 mg General: demented HEENT: NC/AT, PERRLA, EOMI, anicteric sclerae, throat clear Neck: Supple, No JVD, No thyromegaly, +2 carotid pulse wo bruit, No LAD Cardiovascular: RRR, Normal S1, Normal S2, without murmur Abdomen: soft, non-tender, non-distended Extremities: clear Neurological: no change Internal Medicine Assmt/Plan - Assessment Assessment: 1.HTN. 2.DM 3.HYPERLIPIDEMIA. 4.DEMENTIA. - Plan Plan: CONTINUE ON CURRENT MEDICATION AND DIET. Nutritional Asmnt/Malnutr-PDOC - Dietary Evaluation Malnutrition Findings (Please click <Entered> for more info): Nutritional Asmnt/Malnutrition Start: 04/06/18 14: 17 Text: Status: Complete Freq: Protocol: Document 04/06/18 14:18 GERMAINE (Rec: 04/06/18 14:39 GERMAINE DELAROSA) Nutritional Asmnt/Malnutrition Patient General Information Nutritional Screening Moderate Risk Diagnosis psychosis Pertinent Medical Hx/Surgical Hx HTN, DM, arthritis, dementia, depression, gout, hyperlipidemia, osteoporosis Subjective Information Pt was eating lunch in room at time of visit. Pt provided food preferences. Nursing noted intake: 50-75% average. Recorded wt has not changed from 04/01-04/05. Current Diet Order/ Nutrition Support CCHO 60 gm, low sodium Pertinent Medications oscal w/ vit D, colace, lasix, MOM Pertinent Labs 04/01: glucose 111 Nutritional Hx/Data Height 1.75 m Height (Calculated Centimeters) 175.3 Current Weight (lbs) 78.018 kg Weight (Calculated Kilograms) 78.0 Weight (Calculated Grams) 95226.9 [place] Body Weight 145 Body Mass Index (BMI) 25.4 Weight Status Overweight GI Symptoms GI Symptoms None Last BM 04/03 Difficult in: None Food Allergies No Skin Integrity/Comment: intact Current %PO Fair (50-74%) Estimated Nutritional Goals BEE in Kcals: Using Current wt Calories/Kcals/Kg 23-27 Kcals Calculated 5318-9126 Protein: Using Current wt Protein g/k.8-1 Protein Calculated 63-78 g Fluid: ml 2992-9554 Nutritional Problem No current Nutrition Prob Problem no nutrition diagnosis at this time Malnutrition Alert Is there a minimum of two criteria No selected? Query Text:Check all the applicable criteria. A minimum of two criteria are recommended for diagnosis of either severe or non-severe malnutrition. Malnutrition Related to Morbid Obesity Malnutrition related to morbid obesity No Intervention/Recommendation Comments 1. Continue with CCHO 60 gm, low sodium diet as ordered. Updated diet profile. 2. Encourage pt to eat and monitor PO intake, wt, labs and skin integrity 3. F/U as moderate risk in 3-5 days, 04/09-04/11 Expected Outcomes/Goals Expected Outcomes/Goals 1. PO intake to improve to at least 75% completed 2. Wt stability, skin to remain intact, improved glucose levels Reviewed by Sneha He
--- NOTE | 2018-04-16 22:10 | Progress Notes ---
DATE: 04/16/2018 SUBJECTIVE: Case was discussed with staff of the patient, reviewed records. The patient had a low TSH, for which I asked the staff to consult with Dr. Orellana regarding that. There has been no repeat of the TSH. The patient continues to have some agitation and irritability as she was taken off Invega tablets as these are not available here and replaced her with Abilify with no side effects, no sedation, no nausea, and no extrapyramidal symptoms. We will continue to work with the patient in group therapy, milieu therapy, and adjust the medications as needed. JOB# [id number]
[2018-04-17] MEDS: Calcium Carb/Vit D 500 mg/200 U Tab PO SCH ×2 (09:28→18:29)
[2018-04-17] MEDS: Polyvinyl Alcohol Ophth Soln 15 mL Bottle EACH EYE SCH ×2 (09:31→18:31)
--- NOTE | 2018-04-17 13:05 | Discharge Summary ---
DATE OF DISCHARGE: 04/17/2018 IDENTIFYING INFORMATION: The patient is an 87-year-old female. CHIEF COMPLAINT: No answers. HISTORY OF PRESENT ILLNESS: The patient was admitted because of agitation and psychosis. The patient was a poor historian, unable to provide a meaningful conversation. Apparently, on the day of admission, she had to be medicated. She was very agitated. She was well on the sedated time. I called her daughter, Lucrecia at [phone] to get more information and later I was able to talk to her granddaughter, who gave me more information about the patient that she has been demented for the past 2 years. The patient with a history of psychosis. ALLERGIES: She has no known drug allergy. MEDICAL HISTORY: The patient has no known drug allergy. The patient with a history of diabetes mellitus, hypertension, hyperlipidemia, and osteoporosis. COURSE IN THE HOSPITAL: The patient was started on Abilify. She was on oral Invega; however, it was not on the firm use that was discontinued. The patient was continued with allopurinol, aspirin, Lotensin, calcium, Aricept 10 mg at bedtime, guaifenesin ____ every 6 hours as needed for cough, magnesium hydroxide, Namenda was initiated and increased to 5 mg twice a day and simvastatin. The patient progressively got better. She was sleeping well, eating well. She was no longer acting in anyway dangerous, so she improved, she was not acting out and not aggressive. We felt she could be discharged to a lesser level of care. FINAL DIAGNOSES: Psychosis, not otherwise specified; dementia. MEDICAL DIAGNOSES: Hypertension, hyperlipidemia, diabetes mellitus, gout, osteoporosis. The patient will be discharged to [place]. The patient will follow up with the psychiatrist and primary care physician there. EXPECTED OUTCOME: Stable if the patient complies with the above. JOB# [id number]
--- NOTE | 2018-04-17 20:45 | Internal Medicine Prog Note ---
Internal Medicine Subjective - Subjective Service Date: 04/17/18 Patient seen and examined:: with staff Patient is:: awake, verbal, in bed, confused Per staff patient has:: no adverse event Internal Medicine Objective - Results Result Diagrams: 04/01/18 19:45 04/01/18 19:45 Recent Labs: Laboratory Last Values WBC 5.5 Th/cmm (4.8-10.8) 04/01/18 19:45 RBC 4.36 Mil/cmm (3.80-5.20) 04/01/18 19:45 Hgb 13.6 gm/dL (12-16) 04/01/18 19:45 Hct 41.3 % (41.0-60) 04/01/18 19:45 MCV 94.7 fl (81-100) 04/01/18 19:45 MCH 31.2 pg (27.0-31.0) H 04/01/18 19:45 MCHC Differential 32.9 pg (28.0-36.0) 04/01/18 19:45 RDW 13.5 % (11.5-20.0) 04/01/18 19:45 Plt Count 172 Th/cmm (150-400) 04/01/18 19:45 MPV 8.5 fl 04/01/18 19:45 Neutrophils % 61.2 % (40.0-80.0) 04/01/18 19:45 Lymphocytes % 25.4 % (20.0-50.0) 04/01/18 19:45 Monocytes % 7.6 % (2.0-10.0) 04/01/18 19:45 Eosinophils % 4.9 % (0.0-5.0) 04/01/18 19:45 Basophils % 0.9 % (0.0-2.0) 04/01/18 19:45 Sodium 137 mEq/L (136-145) 04/01/18 19:45 Potassium 3.5 mEq/L (3.5-5.1) 04/01/18 19:45 Chloride 104 mEq/L (98-107) 04/01/18 19:45 Carbon Dioxide 22.3 mEq/L (21.0-31.0) 04/01/18 19:45 Anion Gap 14.2 (7.0-16.0) 04/01/18 19:45 BUN 22 mg/dL (7-25) 04/01/18 19:45 Creatinine 0.7 mg/dL (0.6-1.2) 04/01/18 19:45 Est GFR ( Amer) TNP 04/01/18 19:45 Est GFR (Non-Af Amer) TNP 04/01/18 19:45 BUN/Creatinine Ratio 31.4 04/01/18 19:45 Glucose 111 mg/dL (70-105) H 04/01/18 19:45 Calcium 10.2 mg/dL (8.6-10.3) 04/01/18 19:45 Total Bilirubin 0.7 mg/dL (0.3-1.0) 04/01/18 19:45 AST 16 U/L (13-39) 04/01/18 19:45 ALT 8 U/L (7-52) 04/01/18 19:45 Alkaline Phosphatase 65 U/L (34-104) 04/01/18 19:45 Troponin I 0.14 ng/mL (0.01-0.05) H* 04/01/18 19:45 Total Protein 7.4 gm/dL (6.0-8.3) 04/01/18 19:45 Albumin 4.3 gm/dL (3.7-5.3) 04/01/18 19:45 Globulin 3.1 gm/dL 04/01/18 19:45 Albumin/Globulin Ratio 1.4 (1.0-1.8) 04/01/18 19:45 Triglycerides 54 mg/dL (<150) 04/01/18 19:45 Cholesterol 185 mg/dL (<200) 04/01/18 19:45 LDL Cholesterol Direct 121 mg/dL (75-193) 04/01/18 19:45 HDL Cholesterol 48 mg/dL (23-92) 04/01/18 19:45 TSH 0.23 uIU/ml (0.34-5.60) L 04/01/18 19:45 Salicylates < 25.0 mg/L (30.0-100.0) L 04/01/18 19:45 Acetaminophen < 10.0 ug/mL (10.0-30.0) L 04/01/18 19:45 Ethyl Alcohol < 10 mg/dL (0-10) 04/01/18 19:45 RPR NONREACTIVE (NONREACTIVE) 04/01/18 19:45 - Physical Exam Vitals and I&O: Vital Signs Temp 98.4 F 04/17/18 20:00 Pulse 75 04/17/18 20:00 Resp 17 04/17/18 20:00 BP 134/71 04/17/18 20:00 Pulse Ox 98 04/17/18 20:00 Active Medications: Current Medications Acetaminophen (Tylenol) 650 mg PO Q6HR PRN PRN Reason: Pain or Fever >101 Stop: 06/01/18 03:26 Alendronate Sodium (Fosamax) 70 mg PO Q7D [facility] Stop: 06/02/18 06:29 Last Admin: 04/17/18 07:02 Dose: Not Given Allopurinol (Zyloprim) 300 mg PO DAILY [facility] Stop: 06/01/18 08:59 Last Admin: 04/17/18 09:19 Dose: 300 mg Aripiprazole (Abilify) 2.5 mg PO DAILY [facility]; Protocol Stop: 06/02/18 16:59 Last Admin: 04/17/18 18:29 Dose: 2.5 mg Artificial Tears (Artificial Tears Ophth Soln) 1 drop EACH EYE BID [facility] Stop: 06/01/18 08:59 Last Admin: 04/17/18 18:31 Dose: Not Given Aspirin (Ecotrin) 81 mg PO DAILY [facility] Stop: 06/01/18 08:59 Last Admin: 04/17/18 09:20 Dose: 81 mg Benazepril HCl (Lotensin) 5 mg PO BID [facility] Stop: 06/01/18 08:59 Last Admin: 04/17/18 18:28 Dose: Not Given Calcium/Vitamin D (Oscal W/Vitamin D) 1 tab PO BID [facility] Stop: 06/01/18 08:59 Last Admin: 04/17/18 18:29 Dose: Not Given Docusate Sodium (Colace) 100 mg PO BID [facility] Stop: 06/01/18 08:59 Last Admin: 04/17/18 18:29 Dose: Not Given Donepezil HCl (Aricept) 10 mg PO HS [facility] Stop: 06/01/18 20:59 Last Admin: 04/16/18 20:16 Dose: 10 mg Furosemide (Lasix) 20 mg PO DAILY [facility] Stop: 06/01/18 08:59 Last Admin: 04/17/18 09:27 Dose: 20 mg Guaifenesin/Dextromethorphan (Diabetic Tussin Dm Sugar Free) 5 ml PO Q6H PRN PRN Reason: Cough Stop: 06/01/18 03:26 Magnesium Hydroxide (Milk Of Magnesia) 30 ml PO HS PRN PRN Reason: Constipation Memantine (Namenda) 5 mg PO BID [facility] Stop: 06/13/18 16:59 Last Admin: 04/17/18 18:28 Dose: Not Given Methimazole (Tapazole) 5 mg PO QDAC [facility] Stop: 06/01/18 07:29 Last Admin: 04/17/18 07:02 Dose: Not Given Simvastatin (Zocor) 20 mg PO HS [facility]; Protocol Stop: 06/01/18 20:59 Last Admin: 04/16/18 20:16 Dose: 20 mg General: demented HEENT: NC/AT, PERRLA, EOMI, anicteric sclerae, throat clear Neck: Supple, No JVD, No thyromegaly, +2 carotid pulse wo bruit, No LAD Cardiovascular: RRR, Normal S1, Normal S2, without murmur Abdomen: soft, non-tender, non-distended Extremities: clear Neurological: no change Internal Medicine Assmt/Plan - Assessment Assessment: 1.HTN. 2.DM 3.HYPERLIPIDEMIA. 4.DEMENTIA. - Plan Plan: CONTINUE ON CURRENT MEDICATION AND DIET. Nutritional Asmnt/Malnutr-PDOC - Dietary Evaluation Malnutrition Findings (Please click <Entered> for more info): Nutritional Asmnt/Malnutrition Start: 04/06/18 14: 17 Text: Status: Complete Freq: Protocol: Document 04/06/18 14:18 DEJUANZULEIMA (Rec: 04/06/18 14:39 GERMAINE DELAROSA) Nutritional Asmnt/Malnutrition Patient General Information Nutritional Screening Moderate Risk Diagnosis psychosis Pertinent Medical Hx/Surgical Hx HTN, DM, arthritis, dementia, depression, gout, hyperlipidemia, osteoporosis Subjective Information Pt was eating lunch in room at time of visit. Pt provided food preferences. Nursing noted intake: 50-75% average. Recorded wt has not changed from 04/01-04/05. Current Diet Order/ Nutrition Support CCHO 60 gm, low sodium Pertinent Medications oscal w/ vit D, colace, lasix, MOM Pertinent Labs 04/01: glucose 111 Nutritional Hx/Data Height 1.75 m Height (Calculated Centimeters) 175.3 Current Weight (lbs) 78.018 kg Weight (Calculated Kilograms) 78.0 Weight (Calculated Grams) 51557.9 [place] Body Weight 145 Body Mass Index (BMI) 25.4 Weight Status Overweight GI Symptoms GI Symptoms None Last BM 04/03 Difficult in: None Food Allergies No Skin Integrity/Comment: intact Current %PO Fair (50-74%) Estimated Nutritional Goals BEE in Kcals: Using Current wt Calories/Kcals/Kg 23-27 Kcals Calculated 4705-0711 Protein: Using Current wt Protein g/k.8-1 Protein Calculated 63-78 g Fluid: ml 8433-4494 Nutritional Problem No current Nutrition Prob Problem no nutrition diagnosis at this time Malnutrition Alert Is there a minimum of two criteria No selected? Query Text:Check all the applicable criteria. A minimum of two criteria are recommended for diagnosis of either severe or non-severe malnutrition. Malnutrition Related to Morbid Obesity Malnutrition related to morbid obesity No Intervention/Recommendation Comments 1. Continue with CCHO 60 gm, low sodium diet as ordered. Updated diet profile. 2. Encourage pt to eat and monitor PO intake, wt, labs and skin integrity 3. F/U as moderate risk in 3-5 days, 04/09-04/11 Expected Outcomes/Goals Expected Outcomes/Goals 1. PO intake to improve to at least 75% completed 2. Wt stability, skin to remain intact, improved glucose levels Reviewed by Sneha He
[2018-04-18] MEDS: Calcium Carb/Vit D 500 mg/200 U Tab PO SCH ×2 (08:39→16:59)
--- NOTE | 2018-04-18 09:50 | General Progress Note ---
Subjective - Review of Systems Service Date: 04/18/18 Subjective: resting comfortably no complaints Objective - Results Result Diagrams: 04/01/18 19:45 04/01/18 19:45 Recent Labs: Laboratory Last Values WBC 5.5 Th/cmm (4.8-10.8) 04/01/18 19:45 RBC 4.36 Mil/cmm (3.80-5.20) 04/01/18 19:45 Hgb 13.6 gm/dL (12-16) 04/01/18 19:45 Hct 41.3 % (41.0-60) 04/01/18 19:45 MCV 94.7 fl (81-100) 04/01/18 19:45 MCH 31.2 pg (27.0-31.0) H 04/01/18 19:45 MCHC Differential 32.9 pg (28.0-36.0) 04/01/18 19:45 RDW 13.5 % (11.5-20.0) 04/01/18 19:45 Plt Count 172 Th/cmm (150-400) 04/01/18 19:45 MPV 8.5 fl 04/01/18 19:45 Neutrophils % 61.2 % (40.0-80.0) 04/01/18 19:45 Lymphocytes % 25.4 % (20.0-50.0) 04/01/18 19:45 Monocytes % 7.6 % (2.0-10.0) 04/01/18 19:45 Eosinophils % 4.9 % (0.0-5.0) 04/01/18 19:45 Basophils % 0.9 % (0.0-2.0) 04/01/18 19:45 Sodium 137 mEq/L (136-145) 04/01/18 19:45 Potassium 3.5 mEq/L (3.5-5.1) 04/01/18 19:45 Chloride 104 mEq/L (98-107) 04/01/18 19:45 Carbon Dioxide 22.3 mEq/L (21.0-31.0) 04/01/18 19:45 Anion Gap 14.2 (7.0-16.0) 04/01/18 19:45 BUN 22 mg/dL (7-25) 04/01/18 19:45 Creatinine 0.7 mg/dL (0.6-1.2) 04/01/18 19:45 Est GFR ( Amer) TNP 04/01/18 19:45 Est GFR (Non-Af Amer) TNP 04/01/18 19:45 BUN/Creatinine Ratio 31.4 04/01/18 19:45 Glucose 111 mg/dL (70-105) H 04/01/18 19:45 Calcium 10.2 mg/dL (8.6-10.3) 04/01/18 19:45 Total Bilirubin 0.7 mg/dL (0.3-1.0) 04/01/18 19:45 AST 16 U/L (13-39) 04/01/18 19:45 ALT 8 U/L (7-52) 04/01/18 19:45 Alkaline Phosphatase 65 U/L (34-104) 04/01/18 19:45 Troponin I 0.14 ng/mL (0.01-0.05) H* 04/01/18 19:45 Total Protein 7.4 gm/dL (6.0-8.3) 04/01/18 19:45 Albumin 4.3 gm/dL (3.7-5.3) 04/01/18 19:45 Globulin 3.1 gm/dL 04/01/18 19:45 Albumin/Globulin Ratio 1.4 (1.0-1.8) 04/01/18 19:45 Triglycerides 54 mg/dL (<150) 04/01/18 19:45 Cholesterol 185 mg/dL (<200) 04/01/18 19:45 LDL Cholesterol Direct 121 mg/dL (75-193) 04/01/18 19:45 HDL Cholesterol 48 mg/dL (23-92) 04/01/18 19:45 TSH 0.23 uIU/ml (0.34-5.60) L 04/01/18 19:45 Salicylates < 25.0 mg/L (30.0-100.0) L 04/01/18 19:45 Acetaminophen < 10.0 ug/mL (10.0-30.0) L 04/01/18 19:45 Ethyl Alcohol < 10 mg/dL (0-10) 04/01/18 19:45 RPR NONREACTIVE (NONREACTIVE) 04/01/18 19:45 - Physical Exam Vitals and I&O: Vital Signs Temp 96.2 F 04/18/18 07:14 Pulse 68 04/18/18 07:14 Resp 20 04/18/18 07:14 BP 108/40 04/18/18 07:14 Pulse Ox 95 04/18/18 07:14 Active Medications: Current Medications Acetaminophen (Tylenol) 650 mg PO Q6HR PRN PRN Reason: Pain or Fever >101 Stop: 06/01/18 03:26 Alendronate Sodium (Fosamax) 70 mg PO Q7D [facility] Stop: 06/02/18 06:29 Last Admin: 04/17/18 07:02 Dose: Not Given Allopurinol (Zyloprim) 300 mg PO DAILY [facility] Stop: 06/01/18 08:59 Last Admin: 04/18/18 08:38 Dose: 300 mg Aripiprazole (Abilify) 2.5 mg PO DAILY [facility]; Protocol Stop: 06/02/18 16:59 Last Admin: 04/18/18 08:38 Dose: 2.5 mg Artificial Tears (Artificial Tears Ophth Soln) 1 drop EACH EYE BID [facility] Stop: 06/01/18 08:59 Last Admin: 04/17/18 18:31 Dose: Not Given Aspirin (Ecotrin) 81 mg PO DAILY [facility] Stop: 06/01/18 08:59 Last Admin: 04/18/18 08:38 Dose: 81 mg Benazepril HCl (Lotensin) 5 mg PO BID [facility] Stop: 06/01/18 08:59 Last Admin: 04/18/18 08:39 Dose: Not Given Calcium/Vitamin D (Oscal W/Vitamin D) 1 tab PO BID [facility] Stop: 06/01/18 08:59 Last Admin: 04/18/18 08:39 Dose: 1 tab Docusate Sodium (Colace) 100 mg PO BID [facility] Stop: 06/01/18 08:59 Last Admin: 04/18/18 08:38 Dose: 100 mg Donepezil HCl (Aricept) 10 mg PO HS [facility] Stop: 06/01/18 20:59 Last Admin: 04/17/18 21:17 Dose: 10 mg Furosemide (Lasix) 20 mg PO DAILY [facility] Stop: 06/01/18 08:59 Last Admin: 04/18/18 08:40 Dose: Not Given Guaifenesin/Dextromethorphan (Diabetic Tussin Dm Sugar Free) 5 ml PO Q6H PRN PRN Reason: Cough Stop: 06/01/18 03:26 Magnesium Hydroxide (Milk Of Magnesia) 30 ml PO HS PRN PRN Reason: Constipation Memantine (Namenda) 5 mg PO BID [facility] Stop: 06/13/18 16:59 Last Admin: 04/18/18 08:39 Dose: 5 mg Methimazole (Tapazole) 5 mg PO QDAC [facility] Stop: 06/01/18 07:29 Last Admin: 04/18/18 06:55 Dose: 5 mg Simvastatin (Zocor) 20 mg PO HS [facility]; Protocol Stop: 06/01/18 20:59 Last Admin: 04/17/18 21:17 Dose: 20 mg General: No acute distress HEENT: Atraumatic, PERRLA Neck: Supple, JVD, Thyromegaly Cardiovascular: Regular rate, Normal S1, Normal S2 Lungs: Clear to auscultation Abdomen: Bowel sounds, Soft Assessment/Plan - Assessment Assessment: depression DM HTN hyperlipidemia - Plan Plan: continue current treatment Nutritional Asmnt/Malnutr-PDOC - Dietary Evaluation Malnutrition Findings (Please click <Entered> for more info): Nutritional Asmnt/Malnutrition Start: 04/06/18 14: 17 Text: Status: Complete Freq: Protocol: Document 04/06/18 14:18 GERMAINE (Rec: 04/06/18 14:39 GERMAINE DELAROSA) Nutritional Asmnt/Malnutrition Patient General Information Nutritional Screening Moderate Risk Diagnosis psychosis Pertinent Medical Hx/Surgical Hx HTN, DM, arthritis, dementia, depression, gout, hyperlipidemia, osteoporosis Subjective Information Pt was eating lunch in room at time of visit. Pt provided food preferences. Nursing noted intake: 50-75% average. Recorded wt has not changed from 04/01-04/05. Current Diet Order/ Nutrition Support CCHO 60 gm, low sodium Pertinent Medications oscal w/ vit D, colace, lasix, MOM Pertinent Labs 04/01: glucose 111 Nutritional Hx/Data Height 1.75 m Height (Calculated Centimeters) 175.3 Current Weight (lbs) 78.018 kg Weight (Calculated Kilograms) 78.0 Weight (Calculated Grams) 02129.9 [place] Body Weight 145 Body Mass Index (BMI) 25.4 Weight Status Overweight GI Symptoms GI Symptoms None Last BM 04/03 Difficult in: None Food Allergies No Skin Integrity/Comment: intact Current %PO Fair (50-74%) Estimated Nutritional Goals BEE in Kcals: Using Current wt Calories/Kcals/Kg 23-27 Kcals Calculated 9347-0094 Protein: Using Current wt Protein g/k.8-1 Protein Calculated 63-78 g Fluid: ml [id number] Nutritional Problem No current Nutrition Prob Problem no nutrition diagnosis at this time Malnutrition Alert Is there a minimum of two criteria No selected? Query Text:Check all the applicable criteria. A minimum of two criteria are recommended for diagnosis of either severe or non-severe malnutrition. Malnutrition Related to Morbid Obesity Malnutrition related to morbid obesity No Intervention/Recommendation Comments 1. Continue with CCHO 60 gm, low sodium diet as ordered. Updated diet profile. 2. Encourage pt to eat and monitor PO intake, wt, labs and skin integrity 3. F/U as moderate risk in 3-5 days, 04/09-04/11 Expected Outcomes/Goals Expected Outcomes/Goals 1. PO intake to improve to at least 75% completed 2. Wt stability, skin to remain intact, improved glucose levels Reviewed by Sneha He
[2018-04-18] MEDS: Polyvinyl Alcohol Ophth Soln 15 mL Bottle EACH EYE SCH (17:00)
--- NOTE | 2018-04-19 01:57 | Progress Notes ---
DATE: 04/18/2018 Case was discussed with staff of the patient, reviewed records. The patient was discharged yesterday; however, she continues to be demented, confused, continues to have poor insight. Continues to be unable to make safe plan for self-care, demented, confused. I will be increasing her Namenda to 10 mg twice a day and hopefully we will be able to discharge her soon, and no side effects with the medication, no sedation, no nausea, no extrapyramidal symptoms. I will continue to work with the patient in group therapy, milieu therapy, adjust medication as needed. JOB# [id number]
[2018-04-19] MEDS: Polyvinyl Alcohol Ophth Soln 15 mL Bottle EACH EYE SCH ×2 (11:03→18:20)
[2018-04-19] MEDS: Calcium Carb/Vit D 500 mg/200 U Tab PO SCH ×2 (11:03→18:19)
--- NOTE | 2018-04-19 13:41 | Progress Notes ---
DATE: 04/19/2018 Case was discussed with staff with the patient in group and records. The patient is still confused at times paranoid, guarded, and labile and can be combative at times. She is demented and we believe this is probably her basic level of functioning. She is responding better to redirection, sleeping well, eating well. No side effects with the medication. No sedation, no nausea and no extrapyramidal symptoms. We will continue to work the patient in group therapy, milieu therapy, adjust medication as needed. JOB# [id number]
--- NOTE | 2018-04-19 18:36 | General Progress Note ---
Subjective - Review of Systems Service Date: 04/19/18 Subjective: resting comfortably no complaints Objective - Results Result Diagrams: 04/01/18 19:45 04/01/18 19:45 Recent Labs: Laboratory Last Values WBC 5.5 Th/cmm (4.8-10.8) 04/01/18 19:45 RBC 4.36 Mil/cmm (3.80-5.20) 04/01/18 19:45 Hgb 13.6 gm/dL (12-16) 04/01/18 19:45 Hct 41.3 % (41.0-60) 04/01/18 19:45 MCV 94.7 fl (81-100) 04/01/18 19:45 MCH 31.2 pg (27.0-31.0) H 04/01/18 19:45 MCHC Differential 32.9 pg (28.0-36.0) 04/01/18 19:45 RDW 13.5 % (11.5-20.0) 04/01/18 19:45 Plt Count 172 Th/cmm (150-400) 04/01/18 19:45 MPV 8.5 fl 04/01/18 19:45 Neutrophils % 61.2 % (40.0-80.0) 04/01/18 19:45 Lymphocytes % 25.4 % (20.0-50.0) 04/01/18 19:45 Monocytes % 7.6 % (2.0-10.0) 04/01/18 19:45 Eosinophils % 4.9 % (0.0-5.0) 04/01/18 19:45 Basophils % 0.9 % (0.0-2.0) 04/01/18 19:45 Sodium 137 mEq/L (136-145) 04/01/18 19:45 Potassium 3.5 mEq/L (3.5-5.1) 04/01/18 19:45 Chloride 104 mEq/L (98-107) 04/01/18 19:45 Carbon Dioxide 22.3 mEq/L (21.0-31.0) 04/01/18 19:45 Anion Gap 14.2 (7.0-16.0) 04/01/18 19:45 BUN 22 mg/dL (7-25) 04/01/18 19:45 Creatinine 0.7 mg/dL (0.6-1.2) 04/01/18 19:45 Est GFR ( Amer) TNP 04/01/18 19:45 Est GFR (Non-Af Amer) TNP 04/01/18 19:45 BUN/Creatinine Ratio 31.4 04/01/18 19:45 Glucose 111 mg/dL (70-105) H 04/01/18 19:45 Calcium 10.2 mg/dL (8.6-10.3) 04/01/18 19:45 Total Bilirubin 0.7 mg/dL (0.3-1.0) 04/01/18 19:45 AST 16 U/L (13-39) 04/01/18 19:45 ALT 8 U/L (7-52) 04/01/18 19:45 Alkaline Phosphatase 65 U/L (34-104) 04/01/18 19:45 Troponin I 0.14 ng/mL (0.01-0.05) H* 04/01/18 19:45 Total Protein 7.4 gm/dL (6.0-8.3) 04/01/18 19:45 Albumin 4.3 gm/dL (3.7-5.3) 04/01/18 19:45 Globulin 3.1 gm/dL 04/01/18 19:45 Albumin/Globulin Ratio 1.4 (1.0-1.8) 04/01/18 19:45 Triglycerides 54 mg/dL (<150) 04/01/18 19:45 Cholesterol 185 mg/dL (<200) 04/01/18 19:45 LDL Cholesterol Direct 121 mg/dL (75-193) 04/01/18 19:45 HDL Cholesterol 48 mg/dL (23-92) 04/01/18 19:45 TSH 0.23 uIU/ml (0.34-5.60) L 04/01/18 19:45 Salicylates < 25.0 mg/L (30.0-100.0) L 04/01/18 19:45 Acetaminophen < 10.0 ug/mL (10.0-30.0) L 04/01/18 19:45 Ethyl Alcohol < 10 mg/dL (0-10) 04/01/18 19:45 RPR NONREACTIVE (NONREACTIVE) 04/01/18 19:45 - Physical Exam Vitals and I&O: Vital Signs Temp 98.4 F 04/19/18 14:00 Pulse 89 04/19/18 18:18 Resp 20 04/19/18 14:00 BP 155/72 04/19/18 18:18 Pulse Ox 94 04/19/18 14:00 Intake & Output 04/18/18 04/19/18 04/19/18 18:59 06:59 18:59 Intake Total 950 1000 Balance 950 1000 Weight (lbs) 78.018 kg Intake: Oral 950 1000 Other: # Voids 4 3 4 # Bowel Movements 1 0 1 Weight Source Bedscale Active Medications: Current Medications Acetaminophen (Tylenol) 650 mg PO Q6HR PRN PRN Reason: Pain or Fever >101 Stop: 06/01/18 03:26 Alendronate Sodium (Fosamax) 70 mg PO Q7D [facility] Stop: 06/02/18 06:29 Last Admin: 04/17/18 07:02 Dose: Not Given Allopurinol (Zyloprim) 300 mg PO DAILY [facility] Stop: 06/01/18 08:59 Last Admin: 04/19/18 11:00 Dose: 300 mg Aripiprazole (Abilify) 2.5 mg PO DAILY [facility]; Protocol Stop: 06/02/18 16:59 Last Admin: 04/19/18 11:00 Dose: 2.5 mg Artificial Tears (Artificial Tears Ophth Soln) 1 drop EACH EYE BID [facility] Stop: 06/01/18 08:59 Last Admin: 04/19/18 18:20 Dose: Not Given Aspirin (Ecotrin) 81 mg PO DAILY [facility] Stop: 06/01/18 08:59 Last Admin: 04/19/18 11:00 Dose: 81 mg Benazepril HCl (Lotensin) 5 mg PO BID [facility] Stop: 06/01/18 08:59 Last Admin: 04/19/18 18:18 Dose: 5 mg Calcium/Vitamin D (Oscal W/Vitamin D) 1 tab PO BID [facility] Stop: 06/01/18 08:59 Last Admin: 04/19/18 18:19 Dose: 1 tab Docusate Sodium (Colace) 100 mg PO BID [facility] Stop: 06/01/18 08:59 Last Admin: 04/19/18 18:19 Dose: 100 mg Donepezil HCl (Aricept) 10 mg PO HS [facility] Stop: 06/01/18 20:59 Last Admin: 04/18/18 20:51 Dose: 10 mg Furosemide (Lasix) 20 mg PO DAILY [facility] Stop: 06/01/18 08:59 Last Admin: 04/19/18 11:03 Dose: Not Given Guaifenesin/Dextromethorphan (Diabetic Tussin Dm Sugar Free) 5 ml PO Q6H PRN PRN Reason: Cough Stop: 06/01/18 03:26 Magnesium Hydroxide (Milk Of Magnesia) 30 ml PO HS PRN PRN Reason: Constipation Memantine (Namenda) 10 mg PO BID [facility] Stop: 06/17/18 16:59 Last Admin: 04/19/18 18:19 Dose: 10 mg Methimazole (Tapazole) 5 mg PO QDAC [facility] Stop: 06/01/18 07:29 Last Admin: 04/19/18 06:40 Dose: 5 mg Simvastatin (Zocor) 20 mg PO HS [facility]; Protocol Stop: 06/01/18 20:59 Last Admin: 04/18/18 20:52 Dose: 20 mg General: No acute distress HEENT: Atraumatic, PERRLA Neck: Supple, JVD, Thyromegaly Cardiovascular: Regular rate, Normal S1, Normal S2 Lungs: Clear to auscultation Abdomen: Bowel sounds, Soft Assessment/Plan - Assessment Assessment: depression DM HTN hyperlipidemia - Plan Plan: continue current treatment Nutritional Asmnt/Malnutr-PDOC - Dietary Evaluation Malnutrition Findings (Please click <Entered> for more info): Nutritional Asmnt/Malnutrition Start: 04/06/18 14: 17 Text: Status: Complete Freq: Protocol: Document 04/06/18 14:18 GERMAINE (Rec: 04/06/18 14:39 GERMAINE DELAROSA) Nutritional Asmnt/Malnutrition Patient General Information Nutritional Screening Moderate Risk Diagnosis psychosis Pertinent Medical Hx/Surgical Hx HTN, DM, arthritis, dementia, depression, gout, hyperlipidemia, osteoporosis Subjective Information Pt was eating lunch in room at time of visit. Pt provided food preferences. Nursing noted intake: 50-75% average. Recorded wt has not changed from 04/01-04/05. Current Diet Order/ Nutrition Support CCHO 60 gm, low sodium Pertinent Medications oscal w/ vit D, colace, lasix, MOM Pertinent Labs 9/26: glucose 111 Nutritional Hx/Data Height 1.75 m Height (Calculated Centimeters) 175.3 Current Weight (lbs) 78.018 kg Weight (Calculated Kilograms) 78.0 Weight (Calculated Grams) 97589.9 [place] Body Weight 145 Body Mass Index (BMI) 25.4 Weight Status Overweight GI Symptoms GI Symptoms None Last BM 04/03 Difficult in: None Food Allergies No Skin Integrity/Comment: intact Current %PO Fair (50-74%) Estimated Nutritional Goals BEE in Kcals: Using Current wt Calories/Kcals/Kg 23-27 Kcals Calculated 6394-4740 Protein: Using Current wt Protein g/k.8-1 Protein Calculated 63-78 g Fluid: ml [id number] Nutritional Problem No current Nutrition Prob Problem no nutrition diagnosis at this time Malnutrition Alert Is there a minimum of two criteria No selected? Query Text:Check all the applicable criteria. A minimum of two criteria are recommended for diagnosis of either severe or non-severe malnutrition. Malnutrition Related to Morbid Obesity Malnutrition related to morbid obesity No Intervention/Recommendation Comments 1. Continue with CCHO 60 gm, low sodium diet as ordered. Updated diet profile. 2. Encourage pt to eat and monitor PO intake, wt, labs and skin integrity 3. F/U as moderate risk in 3-5 days, 04/09-04/11 Expected Outcomes/Goals Expected Outcomes/Goals 1. PO intake to improve to at least 75% completed 2. Wt stability, skin to remain intact, improved glucose levels Reviewed by Snhea He
[2018-04-20] MEDS: Calcium Carb/Vit D 500 mg/200 U Tab PO SCH ×2 (10:48→18:05)
[2018-04-20] MEDS: Polyvinyl Alcohol Ophth Soln 15 mL Bottle EACH EYE SCH (17:46)
--- NOTE | 2018-04-20 19:24 | Internal Medicine Prog Note ---
Internal Medicine Subjective - Subjective Service Date: 04/20/18 Patient seen and examined:: with staff Patient is:: awake, verbal, in bed, confused Per staff patient has:: no adverse event Internal Medicine Objective - Results Result Diagrams: 04/01/18 19:45 04/01/18 19:45 Recent Labs: Laboratory Last Values WBC 5.5 Th/cmm (4.8-10.8) 04/01/18 19:45 RBC 4.36 Mil/cmm (3.80-5.20) 04/01/18 19:45 Hgb 13.6 gm/dL (12-16) 04/01/18 19:45 Hct 41.3 % (41.0-60) 04/01/18 19:45 MCV 94.7 fl (81-100) 04/01/18 19:45 MCH 31.2 pg (27.0-31.0) H 04/01/18 19:45 MCHC Differential 32.9 pg (28.0-36.0) 04/01/18 19:45 RDW 13.5 % (11.5-20.0) 04/01/18 19:45 Plt Count 172 Th/cmm (150-400) 04/01/18 19:45 MPV 8.5 fl 04/01/18 19:45 Neutrophils % 61.2 % (40.0-80.0) 04/01/18 19:45 Lymphocytes % 25.4 % (20.0-50.0) 04/01/18 19:45 Monocytes % 7.6 % (2.0-10.0) 04/01/18 19:45 Eosinophils % 4.9 % (0.0-5.0) 04/01/18 19:45 Basophils % 0.9 % (0.0-2.0) 04/01/18 19:45 Sodium 137 mEq/L (136-145) 04/01/18 19:45 Potassium 3.5 mEq/L (3.5-5.1) 04/01/18 19:45 Chloride 104 mEq/L (98-107) 04/01/18 19:45 Carbon Dioxide 22.3 mEq/L (21.0-31.0) 04/01/18 19:45 Anion Gap 14.2 (7.0-16.0) 04/01/18 19:45 BUN 22 mg/dL (7-25) 04/01/18 19:45 Creatinine 0.7 mg/dL (0.6-1.2) 04/01/18 19:45 Est GFR ( Amer) TNP 04/01/18 19:45 Est GFR (Non-Af Amer) TNP 04/01/18 19:45 BUN/Creatinine Ratio 31.4 04/01/18 19:45 Glucose 111 mg/dL (70-105) H 04/01/18 19:45 Calcium 10.2 mg/dL (8.6-10.3) 04/01/18 19:45 Total Bilirubin 0.7 mg/dL (0.3-1.0) 04/01/18 19:45 AST 16 U/L (13-39) 04/01/18 19:45 ALT 8 U/L (7-52) 04/01/18 19:45 Alkaline Phosphatase 65 U/L (34-104) 04/01/18 19:45 Troponin I 0.14 ng/mL (0.01-0.05) H* 04/01/18 19:45 Total Protein 7.4 gm/dL (6.0-8.3) 04/01/18 19:45 Albumin 4.3 gm/dL (3.7-5.3) 04/01/18 19:45 Globulin 3.1 gm/dL 04/01/18 19:45 Albumin/Globulin Ratio 1.4 (1.0-1.8) 04/01/18 19:45 Triglycerides 54 mg/dL (<150) 04/01/18 19:45 Cholesterol 185 mg/dL (<200) 04/01/18 19:45 LDL Cholesterol Direct 121 mg/dL (75-193) 04/01/18 19:45 HDL Cholesterol 48 mg/dL (23-92) 04/01/18 19:45 TSH 0.23 uIU/ml (0.34-5.60) L 04/01/18 19:45 Salicylates < 25.0 mg/L (30.0-100.0) L 04/01/18 19:45 Acetaminophen < 10.0 ug/mL (10.0-30.0) L 04/01/18 19:45 Ethyl Alcohol < 10 mg/dL (0-10) 04/01/18 19:45 RPR NONREACTIVE (NONREACTIVE) 04/01/18 19:45 - Physical Exam Vitals and I&O: Vital Signs Temp 97.5 F 04/20/18 14:00 Pulse 77 04/20/18 18:05 Resp 20 04/20/18 14:00 BP 129/68 04/20/18 18:05 Pulse Ox 97 04/20/18 14:00 Intake & Output 04/20/18 04/20/18 04/21/18 06:59 18:59 06:59 Intake Total 240 800 Balance 240 800 Intake: Oral 240 800 Other: # Voids 1 3 # Bowel Movements 1 Active Medications: Current Medications Acetaminophen (Tylenol) 650 mg PO Q6HR PRN PRN Reason: Pain or Fever >101 Stop: 06/01/18 03:26 Alendronate Sodium (Fosamax) 70 mg PO Q7D [facility] Stop: 06/02/18 06:29 Last Admin: 04/17/18 07:02 Dose: Not Given Allopurinol (Zyloprim) 300 mg PO DAILY [facility] Stop: 06/01/18 08:59 Last Admin: 04/20/18 10:49 Dose: 300 mg Aripiprazole (Abilify) 2.5 mg PO DAILY [facility]; Protocol Stop: 06/02/18 16:59 Last Admin: 04/20/18 10:48 Dose: 2.5 mg Artificial Tears (Artificial Tears Ophth Soln) 1 drop EACH EYE BID [facility] Stop: 06/01/18 08:59 Last Admin: 04/20/18 17:46 Dose: Not Given Aspirin (Ecotrin) 81 mg PO DAILY [facility] Stop: 06/01/18 08:59 Last Admin: 04/20/18 10:47 Dose: 81 mg Benazepril HCl (Lotensin) 5 mg PO BID [facility] Stop: 06/01/18 08:59 Last Admin: 04/20/18 18:05 Dose: 5 mg Calcium/Vitamin D (Oscal W/Vitamin D) 1 tab PO BID [facility] Stop: 06/01/18 08:59 Last Admin: 04/20/18 18:05 Dose: 1 tab Docusate Sodium (Colace) 100 mg PO BID [facility] Stop: 06/01/18 08:59 Last Admin: 04/20/18 18:05 Dose: 100 mg Donepezil HCl (Aricept) 10 mg PO HS [facility] Stop: 06/01/18 20:59 Last Admin: 04/19/18 20:50 Dose: 10 mg Furosemide (Lasix) 20 mg PO DAILY [facility] Stop: 06/01/18 08:59 Last Admin: 04/20/18 10:46 Dose: 20 mg Guaifenesin/Dextromethorphan (Diabetic Tussin Dm Sugar Free) 5 ml PO Q6H PRN PRN Reason: Cough Stop: 06/01/18 03:26 Magnesium Hydroxide (Milk Of Magnesia) 30 ml PO HS PRN PRN Reason: Constipation Memantine (Namenda) 10 mg PO BID [facility] Stop: 06/17/18 16:59 Last Admin: 04/20/18 18:05 Dose: 10 mg Methimazole (Tapazole) 5 mg PO QDAC [facility] Stop: 06/01/18 07:29 Last Admin: 04/20/18 06:50 Dose: 5 mg Simvastatin (Zocor) 20 mg PO HS [facility]; Protocol Stop: 06/01/18 20:59 Last Admin: 04/19/18 20:50 Dose: 20 mg General: demented HEENT: NC/AT, PERRLA, EOMI, anicteric sclerae, throat clear Neck: Supple, No JVD, No thyromegaly, +2 carotid pulse wo bruit, No LAD Cardiovascular: RRR, Normal S1, Normal S2, without murmur Abdomen: soft, non-tender, non-distended Extremities: clear Neurological: no change Internal Medicine Assmt/Plan - Assessment Assessment: 1.HTN. 2.DM 3.HYPERLIPIDEMIA. 4.DEMENTIA. - Plan Plan: CONTINUE ON CURRENT MEDICATION AND DIET. Nutritional Asmnt/Malnutr-PDOC - Dietary Evaluation Malnutrition Findings (Please click <Entered> for more info): Nutritional Asmnt/Malnutrition Start: 04/06/18 14: 17 Text: Status: Complete Freq: Protocol: Document 04/06/18 14:18 GERMAINE (Rec: 04/06/18 14:39 GERMAINE DELAROSA) Nutritional Asmnt/Malnutrition Patient General Information Nutritional Screening Moderate Risk Diagnosis psychosis Pertinent Medical Hx/Surgical Hx HTN, DM, arthritis, dementia, depression, gout, hyperlipidemia, osteoporosis Subjective Information Pt was eating lunch in room at time of visit. Pt provided food preferences. Nursing noted intake: 50-75% average. Recorded wt has not changed from 04/01-04/05. Current Diet Order/ Nutrition Support CCHO 60 gm, low sodium Pertinent Medications oscal w/ vit D, colace, lasix, MOM Pertinent Labs 04/01: glucose 111 Nutritional Hx/Data Height 1.75 m Height (Calculated Centimeters) 175.3 Current Weight (lbs) 78.018 kg Weight (Calculated Kilograms) 78.0 Weight (Calculated Grams) 07311.9 [place] Body Weight 145 Body Mass Index (BMI) 25.4 Weight Status Overweight GI Symptoms GI Symptoms None Last BM 04/03 Difficult in: None Food Allergies No Skin Integrity/Comment: intact Current %PO Fair (50-74%) Estimated Nutritional Goals BEE in Kcals: Using Current wt Calories/Kcals/Kg 23-27 Kcals Calculated 4516-9561 Protein: Using Current wt Protein g/k.8-1 Protein Calculated 63-78 g Fluid: ml [id number] Nutritional Problem No current Nutrition Prob Problem no nutrition diagnosis at this time Malnutrition Alert Is there a minimum of two criteria No selected? Query Text:Check all the applicable criteria. A minimum of two criteria are recommended for diagnosis of either severe or non-severe malnutrition. Malnutrition Related to Morbid Obesity Malnutrition related to morbid obesity No Intervention/Recommendation Comments 1. Continue with CCHO 60 gm, low sodium diet as ordered. Updated diet profile. 2. Encourage pt to eat and monitor PO intake, wt, labs and skin integrity 3. F/U as moderate risk in 3-5 days, 04/09-04/11 Expected Outcomes/Goals Expected Outcomes/Goals 1. PO intake to improve to at least 75% completed 2. Wt stability, skin to remain intact, improved glucose levels Reviewed by Sneha He
--- NOTE | 2018-04-20 21:07 | Progress Notes ---
DATE: 04/20/2018 FOLLOWUP PROGRESS NOTE Case was discussed with staff of the patient, also met with her son and granddaughter, discussed the care with them. The patient is fine, doing better, sleeping well, eating well. I did try to discharge on Friday; however, waiting on placement. She is compliant with the medication with no side effects, no sedation, no nausea, no extrapyramidal symptoms and the family reported that the mother has been doing much better. No complaints of the family. No suicidal ideation and the patient will be discharged ____ as soon as planned. JOB# [id number]
[2018-04-21] MEDS: Calcium Carb/Vit D 500 mg/200 U Tab PO SCH ×2 (10:51→18:17)
[2018-04-21] MEDS: Polyvinyl Alcohol Ophth Soln 15 mL Bottle EACH EYE SCH ×2 (10:53→18:38)
--- NOTE | 2018-04-21 22:09 | Progress Notes ---
DATE: 04/21/2018 SUBJECTIVE: Case was discussed with staff of the patient, reviewed records. The patient has been stable, sleeping well, eating well, and working. She still get agitated, irritable, but in general responding well to redirection, sleeping well, and eating well. She denies any intent to harm herself or anyone. She denies any auditory or visual hallucinations, paranoia. She denies any side effects to the medication, tolerating increase in Namenda to 10 mg twice a day. We are working on discharge plan. We will continue to work with the patient in group therapy, milieu therapy, and adjust the medication as needed. JOB# [id number]
--- NOTE | 2018-04-21 22:13 | Internal Medicine Prog Note ---
Internal Medicine Subjective - Subjective Service Date: 04/21/18 Patient seen and examined:: with staff Patient is:: awake, verbal, in bed, confused Per staff patient has:: no adverse event Internal Medicine Objective - Results Result Diagrams: 04/01/18 19:45 04/01/18 19:45 Recent Labs: Laboratory Last Values WBC 5.5 Th/cmm (4.8-10.8) 04/01/18 19:45 RBC 4.36 Mil/cmm (3.80-5.20) 04/01/18 19:45 Hgb 13.6 gm/dL (12-16) 04/01/18 19:45 Hct 41.3 % (41.0-60) 04/01/18 19:45 MCV 94.7 fl (81-100) 04/01/18 19:45 MCH 31.2 pg (27.0-31.0) H 04/01/18 19:45 MCHC Differential 32.9 pg (28.0-36.0) 04/01/18 19:45 RDW 13.5 % (11.5-20.0) 04/01/18 19:45 Plt Count 172 Th/cmm (150-400) 04/01/18 19:45 MPV 8.5 fl 04/01/18 19:45 Neutrophils % 61.2 % (40.0-80.0) 04/01/18 19:45 Lymphocytes % 25.4 % (20.0-50.0) 04/01/18 19:45 Monocytes % 7.6 % (2.0-10.0) 04/01/18 19:45 Eosinophils % 4.9 % (0.0-5.0) 04/01/18 19:45 Basophils % 0.9 % (0.0-2.0) 04/01/18 19:45 Sodium 137 mEq/L (136-145) 04/01/18 19:45 Potassium 3.5 mEq/L (3.5-5.1) 04/01/18 19:45 Chloride 104 mEq/L (98-107) 04/01/18 19:45 Carbon Dioxide 22.3 mEq/L (21.0-31.0) 04/01/18 19:45 Anion Gap 14.2 (7.0-16.0) 04/01/18 19:45 BUN 22 mg/dL (7-25) 04/01/18 19:45 Creatinine 0.7 mg/dL (0.6-1.2) 04/01/18 19:45 Est GFR ( Amer) TNP 04/01/18 19:45 Est GFR (Non-Af Amer) TNP 04/01/18 19:45 BUN/Creatinine Ratio 31.4 04/01/18 19:45 Glucose 111 mg/dL (70-105) H 04/01/18 19:45 Calcium 10.2 mg/dL (8.6-10.3) 04/01/18 19:45 Total Bilirubin 0.7 mg/dL (0.3-1.0) 04/01/18 19:45 AST 16 U/L (13-39) 04/01/18 19:45 ALT 8 U/L (7-52) 04/01/18 19:45 Alkaline Phosphatase 65 U/L (34-104) 04/01/18 19:45 Troponin I 0.14 ng/mL (0.01-0.05) H* 04/01/18 19:45 Total Protein 7.4 gm/dL (6.0-8.3) 04/01/18 19:45 Albumin 4.3 gm/dL (3.7-5.3) 04/01/18 19:45 Globulin 3.1 gm/dL 04/01/18 19:45 Albumin/Globulin Ratio 1.4 (1.0-1.8) 04/01/18 19:45 Triglycerides 54 mg/dL (<150) 04/01/18 19:45 Cholesterol 185 mg/dL (<200) 04/01/18 19:45 LDL Cholesterol Direct 121 mg/dL (75-193) 04/01/18 19:45 HDL Cholesterol 48 mg/dL (23-92) 04/01/18 19:45 TSH 0.23 uIU/ml (0.34-5.60) L 04/01/18 19:45 Salicylates < 25.0 mg/L (30.0-100.0) L 04/01/18 19:45 Acetaminophen < 10.0 ug/mL (10.0-30.0) L 04/01/18 19:45 Ethyl Alcohol < 10 mg/dL (0-10) 04/01/18 19:45 RPR NONREACTIVE (NONREACTIVE) 04/01/18 19:45 - Physical Exam Vitals and I&O: Vital Signs Temp 98.1 F 04/21/18 20:14 Pulse 64 04/21/18 20:14 Resp 20 04/21/18 20:14 BP 121/65 04/21/18 20:14 Pulse Ox 97 04/21/18 20:14 Intake & Output 04/21/18 04/21/18 04/22/18 06:59 18:59 06:59 Intake Total 180 240 Balance 180 240 Weight (lbs) 78.018 kg 78.018 kg Intake: Oral 180 240 Other: # Voids 3 3 # Bowel Movements 0 0 Weight Source Bedscale Bedscale Active Medications: Current Medications Acetaminophen (Tylenol) 650 mg PO Q6HR PRN PRN Reason: Pain or Fever >101 Stop: 06/01/18 03:26 Alendronate Sodium (Fosamax) 70 mg PO Q7D REPLACED BY [facility] Stop: 06/02/18 06:29 Last Admin: 04/17/18 07:02 Dose: Not Given Allopurinol (Zyloprim) 300 mg PO DAILY REPLACED BY [facility] Stop: 06/01/18 08:59 Last Admin: 04/21/18 10:53 Dose: 300 mg Aripiprazole (Abilify) 2.5 mg PO DAILY REPLACED BY [facility]; Protocol Stop: 06/02/18 16:59 Last Admin: 04/21/18 10:49 Dose: 2.5 mg Artificial Tears (Artificial Tears Ophth Soln) 1 drop EACH EYE BID REPLACED BY [facility] Stop: 06/01/18 08:59 Last Admin: 04/21/18 18:38 Dose: Not Given Aspirin (Ecotrin) 81 mg PO DAILY REPLACED BY [facility] Stop: 06/01/18 08:59 Last Admin: 04/21/18 10:49 Dose: 81 mg Benazepril HCl (Lotensin) 5 mg PO BID REPLACED BY [facility] Stop: 06/01/18 08:59 Last Admin: 04/21/18 18:17 Dose: 5 mg Calcium/Vitamin D (Oscal W/Vitamin D) 1 tab PO BID REPLACED BY [facility] Stop: 06/01/18 08:59 Last Admin: 04/21/18 18:17 Dose: 1 tab Docusate Sodium (Colace) 100 mg PO BID REPLACED BY [facility] Stop: 06/01/18 08:59 Last Admin: 04/21/18 18:17 Dose: 100 mg Donepezil HCl (Aricept) 10 mg PO HS LES Stop: 06/01/18 20:59 Last Admin: 04/21/18 20:38 Dose: 10 mg Furosemide (Lasix) 20 mg PO DAILY [facility] Stop: 06/01/18 08:59 Last Admin: 04/21/18 10:52 Dose: 20 mg Guaifenesin/Dextromethorphan (Diabetic Tussin Dm Sugar Free) 5 ml PO Q6H PRN PRN Reason: Cough Stop: 06/01/18 03:26 Magnesium Hydroxide (Milk Of Magnesia) 30 ml PO HS PRN PRN Reason: Constipation Memantine (Namenda) 10 mg PO BID LES Stop: 06/17/18 16:59 Last Admin: 04/21/18 18:17 Dose: 10 mg Methimazole (Tapazole) 5 mg PO QDAC [facility] Stop: 06/01/18 07:29 Last Admin: 04/21/18 06:50 Dose: 5 mg Simvastatin (Zocor) 20 mg PO HS LES; Protocol Stop: 06/01/18 20:59 Last Admin: 04/21/18 20:38 Dose: 20 mg General: demented HEENT: NC/AT, PERRLA, EOMI, anicteric sclerae, throat clear Neck: Supple, No JVD, No thyromegaly, +2 carotid pulse wo bruit, No LAD Cardiovascular: RRR, Normal S1, Normal S2, without murmur Abdomen: soft, non-tender, non-distended Extremities: clear Neurological: no change Internal Medicine Assmt/Plan - Assessment Assessment: 1.HTN. 2.DM 3.HYPERLIPIDEMIA. 4.DEMENTIA. - Plan Plan: CONTINUE ON CURRENT MEDICATION AND DIET. Nutritional Asmnt/Malnutr-PDOC - Dietary Evaluation Malnutrition Findings (Please click <Entered> for more info): Nutritional Asmnt/Malnutrition Start: 04/06/18 14: 17 Text: Status: Complete Freq: Protocol: Document 04/06/18 14:18 GERMAINE (Rec: 04/06/18 14:39 GERMAINE DELAROSA) Nutritional Asmnt/Malnutrition Patient General Information Nutritional Screening Moderate Risk Diagnosis psychosis Pertinent Medical Hx/Surgical Hx HTN, DM, arthritis, dementia, depression, gout, hyperlipidemia, osteoporosis Subjective Information Pt was eating lunch in room at time of visit. Pt provided food preferences. Nursing noted intake: 50-75% average. Recorded wt has not changed from 04/01-04/05. Current Diet Order/ Nutrition Support CCHO 60 gm, low sodium Pertinent Medications oscal w/ vit D, colace, lasix, MOM Pertinent Labs 04/01: glucose 111 Nutritional Hx/Data Height 1.75 m Height (Calculated Centimeters) 175.3 Current Weight (lbs) 78.018 kg Weight (Calculated Kilograms) 78.0 Weight (Calculated Grams) 71968.9 [place] Body Weight 145 Body Mass Index (BMI) 25.4 Weight Status Overweight GI Symptoms GI Symptoms None Last BM 04/03 Difficult in: None Food Allergies No Skin Integrity/Comment: intact Current %PO Fair (50-74%) Estimated Nutritional Goals BEE in Kcals: Using Current wt Calories/Kcals/Kg 23-27 Kcals Calculated 4710-9183 Protein: Using Current wt Protein g/k.8-1 Protein Calculated 63-78 g Fluid: ml 7914-2515 Nutritional Problem No current Nutrition Prob Problem no nutrition diagnosis at this time Malnutrition Alert Is there a minimum of two criteria No selected? Query Text:Check all the applicable criteria. A minimum of two criteria are recommended for diagnosis of either severe or non-severe malnutrition. Malnutrition Related to Morbid Obesity Malnutrition related to morbid obesity No Intervention/Recommendation Comments 1. Continue with CCHO 60 gm, low sodium diet as ordered. Updated diet profile. 2. Encourage pt to eat and monitor PO intake, wt, labs and skin integrity 3. F/U as moderate risk in 3-5 days, 04/09-04/11 Expected Outcomes/Goals Expected Outcomes/Goals 1. PO intake to improve to at least 75% completed 2. Wt stability, skin to remain intact, improved glucose levels Reviewed by Sneha He
[2018-04-22] MEDS: Calcium Carb/Vit D 500 mg/200 U Tab PO SCH ×2 (08:27→16:47)
[2018-04-22] MEDS: Polyvinyl Alcohol Ophth Soln 15 mL Bottle EACH EYE SCH ×2 (09:00→16:46)
--- NOTE | 2018-04-22 21:05 | Internal Medicine Prog Note ---
Internal Medicine Subjective - Subjective Service Date: 04/22/18 Patient seen and examined:: with staff Patient is:: awake, verbal, in bed, confused Per staff patient has:: no adverse event Internal Medicine Objective - Results Result Diagrams: 04/01/18 19:45 04/01/18 19:45 Recent Labs: Laboratory Last Values WBC 5.5 Th/cmm (4.8-10.8) 04/01/18 19:45 RBC 4.36 Mil/cmm (3.80-5.20) 04/01/18 19:45 Hgb 13.6 gm/dL (12-16) 04/01/18 19:45 Hct 41.3 % (41.0-60) 04/01/18 19:45 MCV 94.7 fl (81-100) 04/01/18 19:45 MCH 31.2 pg (27.0-31.0) H 04/01/18 19:45 MCHC Differential 32.9 pg (28.0-36.0) 04/01/18 19:45 RDW 13.5 % (11.5-20.0) 04/01/18 19:45 Plt Count 172 Th/cmm (150-400) 04/01/18 19:45 MPV 8.5 fl 04/01/18 19:45 Neutrophils % 61.2 % (40.0-80.0) 04/01/18 19:45 Lymphocytes % 25.4 % (20.0-50.0) 04/01/18 19:45 Monocytes % 7.6 % (2.0-10.0) 04/01/18 19:45 Eosinophils % 4.9 % (0.0-5.0) 04/01/18 19:45 Basophils % 0.9 % (0.0-2.0) 04/01/18 19:45 Sodium 137 mEq/L (136-145) 04/01/18 19:45 Potassium 3.5 mEq/L (3.5-5.1) 04/01/18 19:45 Chloride 104 mEq/L (98-107) 04/01/18 19:45 Carbon Dioxide 22.3 mEq/L (21.0-31.0) 04/01/18 19:45 Anion Gap 14.2 (7.0-16.0) 04/01/18 19:45 BUN 22 mg/dL (7-25) 04/01/18 19:45 Creatinine 0.7 mg/dL (0.6-1.2) 04/01/18 19:45 Est GFR ( Amer) TNP 04/01/18 19:45 Est GFR (Non-Af Amer) TNP 04/01/18 19:45 BUN/Creatinine Ratio 31.4 04/01/18 19:45 Glucose 111 mg/dL (70-105) H 04/01/18 19:45 Calcium 10.2 mg/dL (8.6-10.3) 04/01/18 19:45 Total Bilirubin 0.7 mg/dL (0.3-1.0) 04/01/18 19:45 AST 16 U/L (13-39) 04/01/18 19:45 ALT 8 U/L (7-52) 04/01/18 19:45 Alkaline Phosphatase 65 U/L (34-104) 04/01/18 19:45 Troponin I 0.14 ng/mL (0.01-0.05) H* 04/01/18 19:45 Total Protein 7.4 gm/dL (6.0-8.3) 04/01/18 19:45 Albumin 4.3 gm/dL (3.7-5.3) 04/01/18 19:45 Globulin 3.1 gm/dL 04/01/18 19:45 Albumin/Globulin Ratio 1.4 (1.0-1.8) 04/01/18 19:45 Triglycerides 54 mg/dL (<150) 04/01/18 19:45 Cholesterol 185 mg/dL (<200) 04/01/18 19:45 LDL Cholesterol Direct 121 mg/dL (75-193) 04/01/18 19:45 HDL Cholesterol 48 mg/dL (23-92) 04/01/18 19:45 TSH 0.23 uIU/ml (0.34-5.60) L 04/01/18 19:45 Salicylates < 25.0 mg/L (30.0-100.0) L 04/01/18 19:45 Acetaminophen < 10.0 ug/mL (10.0-30.0) L 04/01/18 19:45 Ethyl Alcohol < 10 mg/dL (0-10) 04/01/18 19:45 RPR NONREACTIVE (NONREACTIVE) 04/01/18 19:45 - Physical Exam Vitals and I&O: Vital Signs Temp 97.2 F 04/22/18 20:00 Pulse 65 04/22/18 20:00 Resp 18 04/22/18 20:00 BP 128/67 04/22/18 20:00 Pulse Ox 95 04/22/18 20:00 Intake & Output 04/22/18 04/22/18 04/23/18 06:59 18:59 06:59 Intake Total 360 800 Balance 360 800 Weight (lbs) 78.018 kg Intake: Oral 360 800 Other: # Voids 2 4 # Bowel Movements 0 1 Weight Source Bedscale Active Medications: Current Medications Acetaminophen (Tylenol) 650 mg PO Q6HR PRN PRN Reason: Pain or Fever >101 Stop: 06/01/18 03:26 Alendronate Sodium (Fosamax) 70 mg PO Q7D [facility] Stop: 06/02/18 06:29 Last Admin: 04/17/18 07:02 Dose: Not Given Allopurinol (Zyloprim) 300 mg PO DAILY [facility] Stop: 06/01/18 08:59 Last Admin: 04/22/18 08:27 Dose: 300 mg Aripiprazole (Abilify) 2.5 mg PO DAILY [facility]; Protocol Stop: 06/02/18 16:59 Last Admin: 04/22/18 08:27 Dose: 2.5 mg Artificial Tears (Artificial Tears Ophth Soln) 1 drop EACH EYE BID [facility] Stop: 06/01/18 08:59 Last Admin: 04/22/18 16:46 Dose: 1 drop Aspirin (Ecotrin) 81 mg PO DAILY [facility] Stop: 06/01/18 08:59 Last Admin: 04/22/18 08:27 Dose: 81 mg Benazepril HCl (Lotensin) 5 mg PO BID [facility] Stop: 06/01/18 08:59 Last Admin: 04/22/18 16:47 Dose: 5 mg Calcium/Vitamin D (Oscal W/Vitamin D) 1 tab PO BID [facility] Stop: 06/01/18 08:59 Last Admin: 04/22/18 16:47 Dose: 1 tab Docusate Sodium (Colace) 100 mg PO BID [facility] Stop: 06/01/18 08:59 Last Admin: 04/22/18 16:47 Dose: 100 mg Donepezil HCl (Aricept) 10 mg PO HS [facility]ES Stop: 06/01/18 20:59 Last Admin: 04/22/18 20:24 Dose: 10 mg Furosemide (Lasix) 20 mg PO DAILY [facility] Stop: 06/01/18 08:59 Last Admin: 04/22/18 08:28 Dose: 20 mg Guaifenesin/Dextromethorphan (Diabetic Tussin Dm Sugar Free) 5 ml PO Q6H PRN PRN Reason: Cough Stop: 06/01/18 03:26 Magnesium Hydroxide (Milk Of Magnesia) 30 ml PO HS PRN PRN Reason: Constipation Memantine (Namenda) 10 mg PO BID [facility] Stop: 06/17/18 16:59 Last Admin: 04/22/18 16:47 Dose: 10 mg Methimazole (Tapazole) 5 mg PO QDAC [facility] Stop: 06/01/18 07:29 Last Admin: 04/22/18 06:45 Dose: 5 mg Simvastatin (Zocor) 20 mg PO HS LES; Protocol Stop: 06/01/18 20:59 Last Admin: 04/22/18 20:24 Dose: 20 mg General: demented HEENT: NC/AT, PERRLA, EOMI, anicteric sclerae, throat clear Neck: Supple, No JVD, No thyromegaly, +2 carotid pulse wo bruit, No LAD Cardiovascular: RRR, Normal S1, Normal S2, without murmur Abdomen: soft, non-tender, non-distended Extremities: clear Neurological: no change Internal Medicine Assmt/Plan - Assessment Assessment: 1.HTN. 2.DM 3.HYPERLIPIDEMIA. 4.DEMENTIA. - Plan Plan: CONTINUE ON CURRENT MEDICATION AND DIET. Nutritional Asmnt/Malnutr-PDOC - Dietary Evaluation Malnutrition Findings (Please click <Entered> for more info): Nutritional Asmnt/Malnutrition Start: 04/06/18 14: 17 Text: Status: Complete Freq: Protocol: Document 04/06/18 14:18 GERMAINE (Rec: 04/06/18 14:39 GERMAINE DELAROSA) Nutritional Asmnt/Malnutrition Patient General Information Nutritional Screening Moderate Risk Diagnosis psychosis Pertinent Medical Hx/Surgical Hx HTN, DM, arthritis, dementia, depression, gout, hyperlipidemia, osteoporosis Subjective Information Pt was eating lunch in room at time of visit. Pt provided food preferences. Nursing noted intake: 50-75% average. Recorded wt has not changed from 04/01-04/05. Current Diet Order/ Nutrition Support CCHO 60 gm, low sodium Pertinent Medications oscal w/ vit D, colace, lasix, MOM Pertinent Labs 04/01: glucose 111 Nutritional Hx/Data Height 1.75 m Height (Calculated Centimeters) 175.3 Current Weight (lbs) 78.018 kg Weight (Calculated Kilograms) 78.0 Weight (Calculated Grams) 61741.9 [place] Body Weight 145 Body Mass Index (BMI) 25.4 Weight Status Overweight GI Symptoms GI Symptoms None Last BM 04/03 Difficult in: None Food Allergies No Skin Integrity/Comment: intact Current %PO Fair (50-74%) Estimated Nutritional Goals BEE in Kcals: Using Current wt Calories/Kcals/Kg 23-27 Kcals Calculated 9869-3231 Protein: Using Current wt Protein g/k.8-1 Protein Calculated 63-78 g Fluid: ml 3180-7093 Nutritional Problem No current Nutrition Prob Problem no nutrition diagnosis at this time Malnutrition Alert Is there a minimum of two criteria No selected? Query Text:Check all the applicable criteria. A minimum of two criteria are recommended for diagnosis of either severe or non-severe malnutrition. Malnutrition Related to Morbid Obesity Malnutrition related to morbid obesity No Intervention/Recommendation Comments 1. Continue with CCHO 60 gm, low sodium diet as ordered. Updated diet profile. 2. Encourage pt to eat and monitor PO intake, wt, labs and skin integrity 3. F/U as moderate risk in 3-5 days, 04/09-04/11 Expected Outcomes/Goals Expected Outcomes/Goals 1. PO intake to improve to at least 75% completed 2. Wt stability, skin to remain intact, improved glucose levels Reviewed by Sneha He
[2018-04-23] MEDS: Polyvinyl Alcohol Ophth Soln 15 mL Bottle EACH EYE SCH (08:52)
[2018-04-23] MEDS: Calcium Carb/Vit D 500 mg/200 U Tab PO SCH (08:54)
== END 2018-04-23 15:30 | DRG 885 ==
LOC: ER 19:19 → GERO 20:50
PROVIDERS: ADMIT Psychiatry & Neurology Psychiatry; ATTEND Psychiatry & Neurology Psychiatry
DX: F29 Unspecified psychosis not due to a substance or known physiological condition (principal); I10 Essential (primary) hypertension; F03.90 Unspecified dementia, unspecified severity, without behavioral disturbance, psychotic disturbance, mood disturbance, and anxiety; E11.9 Type 2 diabetes mellitus without complications; M10.9 Gout, unspecified; M81.0 Age-related osteoporosis without current pathological fracture; E78.5 Hyperlipidemia, unspecified; M19.90 Unspecified osteoarthritis, unspecified site; Z83.3 Family history of diabetes mellitus; Z82.49 Family history of ischemic heart disease and other diseases of the circulatory system
CPT/HCPCS: 36415-UA; 80053-TC; 80061-TC; 80320-TC; 80329-TC; 83036-90; 84443-TC; 84484-TC; 85025-TC; 86592-TC; 93005; J1200; J1630; J2060; Z7610